=== PATIENT | male | born 1995 | race Caucasian/White ===

== ENCOUNTER 2017-06-03 04:07 | Emergency (ER) | payer SELFPAY ==
[~2017-06-03] VITALS: Ht 193 cm; Wt 70.0 kg
[~2017-06-03 04:07] MED LIST: BENA25TA8 PO; PRED10 PO
[2017-06-03 04:12] VITALS: BP 136/77; PULSE 97; RESP 18; TEMP 97.6; O2SAT 100
[2017-06-03 04:25] VITALS: BP 136/77; PULSE 97; RESP 18; TEMP 97.6; O2SAT 100
[2017-06-03] MEDS ORDERED: ORPHENADRINE INJ 60 MG/2 ML AMP IM ONE (04:30)
[2017-06-03] MEDS ORDERED: DEXAMETHASONE SOD PHOS 4 MG/ML VIAL IV PUSH ONE (04:30)
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
--- NOTE | 2017-06-03 05:11 | RADRPT ---
EXAM DATE/TIME: 06/03/2017 04:40 [facility] COMPARISON: No previous studies available for comparison. INDICATIONS : Lower back, right SI joint pain starting this morning with no known injury. MEDICAL HISTORY : None. SURGICAL HISTORY : None. ENCOUNTER: Initial ACUITY: 1 day PAIN SCORE: 10/10 LOCATION: Right SI joint and lower back FINDINGS: Two view examination was performed. There are five non-rib bearing vertebral bodies. The vertebral bodies are in normal alignment without evidence of subluxation or scoliosis. The disc spaces are jesse ntained. The pedicles are intact. Bony mineralization is normal. No fracture is identified. CONCLUSION: Normal examination for a patient of this age. Jimmie Stevenson MD on June 03, 2017 at 5:10 Board Certified Radiologist. This report was verified electronically.
[2017-06-03 05:42] VITALS: BP 118/62; PULSE 70; RESP 18; O2SAT 100
[2017-06-03] MEDS ORDERED: ROBA750T PO (05:42)
[2017-06-03] MEDS ORDERED: ULTR50TA5 PO (05:42)
[2017-06-03] MEDS ORDERED: IBUP800T23 PO (05:42)
[2017-06-03] MEDS ORDERED: MORPHINE SULFATE 8 MG/ML INJ IV PUSH ONE (05:45)
[2017-06-03 06:28] VITALS: RESP 18
== END 2017-06-03 06:29 | disposition home or self-care (01) ==
LOC: PHED 04:07
DX: M54.31 Sciatica, right side (principal); Z72.0 Tobacco use
CPT/HCPCS: 72100; 96372; 96374; 96375; 99284; J1100; J2270; J2360

== ENCOUNTER 2017-06-04 18:24 | Emergency (ER) | payer SELFPAY ==
[~2017-06-04 18:24] MED LIST changes: +IBUP800T23 PO; +ROBA750T PO; +ULTR50TA5 PO
[2017-06-04 18:35] VITALS: BP 157/79; PULSE 104; RESP 18; TEMP 97.7; O2SAT 100
[2017-06-04] MEDS ORDERED: ORPHENADRINE INJ 60 MG/2 ML AMP IM ONE (19:15)
[2017-06-04] MEDS ORDERED: KETOROLAC TROMETHAMINE 60 MG/2 ML (IM) VIAL IM ONE (19:15)
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
== END 2017-06-04 19:25 | disposition home or self-care (01) ==
LOC: PHEFT 18:24
DX: M54.31 Sciatica, right side (principal)
CPT/HCPCS: 96372; 99284; J1885; J2360

== ENCOUNTER 2017-06-05 20:32 | Inpatient (IN) | payer SELFPAY ==
[~2017-06-05] VITALS: Ht 190.5 cm; Wt 78.1 kg
[~2017-06-05 20:32] MED LIST changes: -BENA25TA8 PO; -PRED10 PO
[2017-06-05 20:45] VITALS: BP 162/84; PULSE 115; RESP 20; TEMP 97.9; O2SAT 100
[2017-06-05] MEDS ORDERED: HYDROmorphone HCL PF 1 MG/ML VIAL IV PUSH ONE ×2 (21:00→22:15)
[2017-06-05] MEDS ORDERED: ONDANSETRON HCL 4 MG/2 ML VIAL IV PUSH ONE (21:00)
[2017-06-05] MEDS: SODIUM CHLOR 0.9% 1000 ML INJ 1,000 ML IV SCH (21:15)
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
[2017-06-05 21:34] LABS: BASOPHIL % 0.2 % (0.0-2.0); EOSINOPHIL % 0.1 % (0.0-4.0); HEMATOCRIT 32.4 % (39.0-51.0); HEMO FLAGS DIFF FINAL; LYMPH % 10.3 % (9.0-44.0); LYMPHOCYTE # 1.2 TH/MM3 (1.0-4.8); MEAN CELL VOLUME 77.8 FL (80.0-100.0); MEAN CORPUSCULAR HGB CONC 32.1 % (32.0-36.0); MONO % 8.7 % (0.0-8.0); NEUT % 80.7 % (16.0-70.0); PLATELET COUNT 208 TH/MM3 (150-450); RED BLOOD COUNT 4.16 MIL/MM3 (4.50-5.90); RED CELL DISTRIBUTION WIDTH 14.6 % (11.6-17.2); WHITE BLOOD COUNT 11.2 TH/MM3 (4.0-11.0)
--- NOTE | 2017-06-05 21:51 | RADRPT ---
EXAM DATE/TIME: 06/05/2017 21:22 [facility] COMPARISON: No previous studies available for comparison. INDICATIONS : Trauma. Severe low back pain with right radiculopathy. MEDICAL HISTORY : None. SURGICAL HISTORY : None. ENCOUNTER: Subsequent ACUITY: 3 day PAIN SCORE: 6/10 LOCATION: [facility] TECHNIQUE: Multiplanar multisequence MRI of the thoracic spine was performed. FINDINGS: VERTEBRA: Normal vertebral body height. Homogeneous marrow signal. ALIGNMENT: Normal. CORD: Normal position and configuration. T1-T2: Normal. T2-T3: The thecal sac has a normal diameter. No evidence of disc bulge or protrusion. T3-T4: The thecal sac has a normal diameter. No evidence of disc bulge or protrusion. T4-T5: The thecal sac has a normal diameter. No evidence of disc bulge or protrusion. T5-T6: The thecal sac has a normal diameter. No evidence of disc bulge or protrusion. T6-T7: The thecal sac has a normal diameter. No evidence of disc bulge or protrusion. T7-T8: The thecal sac has a normal diameter. No evidence of disc bulge or protrusion. T8-T9: The thecal sac has a normal diameter. No evidence of disc bulge or protrusion. T9-T10: The thecal sac has a normal diameter. No evidence of disc bulge or protrusion. T10-T11: A tiny right paracentral protrusion abuts the thecal sac without canal stenosis. T11-T12: A small right paracentral protrusion abuts the ventral thecal sac without canal stenosis. T12-L1: The thecal sac has a normal diameter. No evidence of disc bulge or protrusion. CONCLUSION: 1. Tiny right paracentral protrusion at T10-11 without canal stenosis. 2. Small right paracentral protrusion at T11-12 without canal stenosis. 3. No compression fracture or spondylolisthesis. Justo Mayen MD on June 05, 2017 at 21:48 Board Certified Radiologist. This report was verified electronically.
[2017-06-05 21:54] LABS: ANION GAP 7 MEQ/L (5-15); AST (GOT) 21 U/L (15-37); BICARBONATE 24.3 MEQ/L (21.0-32.0); BLOOD UREA NITROGEN 7 MG/DL (7-18); CHLORIDE 105 MEQ/L (98-107); GLOMERULAR FILTRATION RATE 161 ML/MIN (>89); POTASSIUM 3.4 MEQ/L (3.5-5.1); SODIUM (NA) 136 MEQ/L (136-145)
[2017-06-05 21:58] LABS: ALKALINE PHOSPHATASE 64 U/L (45-117); ALT (GPT) 12 U/L (12-78); TOTAL BILIRUBIN ADULT 0.2 MG/DL (0.2-1.0)
--- NOTE | 2017-06-05 22:02 | RADRPT ---
EXAM DATE/TIME: 06/05/2017 21:22 [facility] COMPARISON: No previous studies available for comparison. INDICATIONS : Trauma. Severe low back pain with right radiculopathy. MEDICAL HISTORY : None. SURGICAL HISTORY : None. ENCOUNTER: Subsequent ACUITY: 3 day PAIN SCORE: 6/10 LOCATION: Paraspinal TECHNIQUE: Multiplanar multisequence MRI of the lumbar spine was performed without contrast. FINDINGS: The most caudal appearing lumbar vertebra is numbered as L5. VERTEBRAE: Homogeneous signal. Normal alignment. CONUS: Normal level and configuration. T12-L1: The thecal sac has a normal diameter. No evidence of disc bulge or protrusion. The neural foramina are patent bilaterally. L1-L2: The thecal sac has a normal diameter. No evidence of disc bulge or protrusion. The neural foramina are patent bilaterally. L2-L3: The thecal sac has a normal diameter. No evidence of disc bulge or protrusion. The neural foramina are patent bilaterally. L3-L4: Minimal broad-based disc bulge abuts the ventral thecal sac without canal stenosis. The neural christine nishant are patent bilaterally. L4-L5: Minimal broad-based disc bulge abuts the ventral thecal sac without canal stenosis. The neural christine nishant are patent bilaterally. L5-S1: Mild broad-based disc protrusion more centered to left abuts the ventral thecal sac and abuts the S1 nerve roots greater on the left. The neural foramina are patent bilaterally. CONCLUSION: 1. Minimal broad-based disc bulges at L3-4 and L4-5 levels without canal stenosis. 2. Mild broad-based protrusion more eccentric to the left at L5-S1 abuts the S1 nerve roots greater o n the left. No canal stenosis. Justo Mayen MD on June 05, 2017 at 21:57 Board Certified Radiologist. This report was verified electronically.
--- NOTE | 2017-06-05 22:24 | RADRPT ---
EXAM DATE/TIME: 06/05/2017 21:22 [facility] COMPARISON: No previous studies available for comparison. INDICATIONS : Trauma. Severe low back pain with right radiculopathy. MEDICAL HISTORY : None. SURGICAL HISTORY : None. ENCOUNTER: Subsequent ACUITY: 3 day PAIN SCORE: 6/10 LOCATION: Paraspinal TECHNIQUE: Multiplanar, multisequence MRI examination of the cervical spine was performed. FINDINGS: VERTEBRAE: Normal vertebral body height. Homogeneous marrow signal. ALIGNMENT: No evidence of subluxation. CORD: Normal configuration and signal. POST FOSSA: The cerebellar tonsils are normal in position. C2-C3: The thecal sac has a normal configuration. There is no evidence of disc herniation or spinal canal s tenosis. The neural foramina are patent bilaterally. C3-C4: The thecal sac has a normal configuration. There is no evidence of disc herniation or spinal canal s tenosis. The neural foramina are patent bilaterally. C4-C5: The thecal sac has a normal configuration. There is no evidence of disc herniation or spinal canal s tenosis. The neural foramina are patent bilaterally. C5-C6: The thecal sac has a normal configuration. There is no evidence of disc herniation or spinal canal s tenosis. The neural foramina are patent bilaterally. C6-C7: The thecal sac has a normal configuration. There is no evidence of disc herniation or spinal canal s tenosis. The neural foramina are patent bilaterally. C7-T1: The thecal sac has a normal configuration. There is no evidence of disc herniation or spinal canal s tenosis. The neural foramina are patent bilaterally. CONCLUSION: Unremarkable cervical spine. Justo Mayen MD on June 05, 2017 at 22:22 Board Certified Radiologist. This report was verified electronically.
[2017-06-05] MEDS ORDERED: LORazepam 2 MG/ML VIAL IV PUSH ONE (22:45)
[2017-06-05 22:53] LABS: BLOOD, URINE NEG (NEG); GLUCOSE,URINE NEG (NEG); KETONE, URINE NEG (NEG); MUCUS URINE FEW /lpf (OCC); NITRITE,URINE NEG (NEG); URINE COLOR YELLOW (YELLW/STRAW)
[2017-06-05 22:55] LABS: COMMENT (UR) CULT NOT INDICATED; CULTURE IF INDICATED CULT NOT INDICATED
[2017-06-05 23:03] VITALS: BP 165/73; PULSE 110; RESP 18; TEMP 100.1; O2SAT 100
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
[2017-06-06] VITALS (7 sets, daily range): BP systolic 131–155; BP diastolic 58–81; PULSE 66–99; RESP 16–18; TEMP 96.6–97.9; O2SAT 96–100
[2017-06-06] MEDS ORDERED: ACETAMINOPHEN 325 MG TAB PO PRN
[2017-06-06] MEDS ORDERED: SODIUM CHLORIDE 0.9% FLUSH 10 ML FLUSH IV FLUSH PRN
[2017-06-06] MEDS ORDERED: SODIUM CHLORIDE 0.9% FLUSH 10 ML FLUSH IVF PRN
[2017-06-06] MEDS ORDERED: BISACODYL 10 MG SUPP RECTAL PRN
[2017-06-06] MEDS: KETOROLAC TROMETHAMINE 60 MG/2 ML (IM) VIAL IM SCH ×5 (00:08→23:15)
--- NOTE | 2017-06-06 01:11 | RADRPT ---
EXAM DATE/TIME: 06/06/2017 00:23 [facility] COMPARISON: No previous studies available for comparison. INDICATIONS : PT FELL THREE DAYS AGO- UNABLE TO AMBULATE, PAIN TO RIGHT UPPER LEG. MEDICAL HISTORY : None. SURGICAL HISTORY : None. ENCOUNTER: Initial ACUITY: 3 days PAIN SCORE: 8/10 LOCATION: Right Femur FINDINGS: Two view examination of the right femur demonstrates no evidence of fracture or dislocation. Bony mi neralization is normal. The soft tissue structures are intact. CONCLUSION: Unremarkable examination of the right femur. Kaleb Heart MD on June 06, 2017 at 1:09 Board Certified Radiologist. This report was verified electronically.
[2017-06-06] MEDS: HYDROmorphone HCL PF 2 MG/ML VIAL IV PUSH PRN ×7 (01:14→21:29)
[2017-06-06] MEDS: METHOCARBAMOL INJ 1,000 MG in SODIUM CHLOR 0.9% 250 ML INJ 240 ML IV SCH ×4 (01:25→23:14)
--- NOTE | 2017-06-06 02:32 | HHI.HP ---
[facility] Service [facility] Primary Care Physician No Primary Care Physician Admission Diagnosis intractable pain; sciatica; sirs Diagnoses: (1) SIRS (systemic inflammatory response syndrome) Diagnosis: Principal (2) Intractable pain Diagnosis: Principal (3) Sciatica of right side Diagnosis: Principal Travel History International Travel<30 Days: No Contact w/Intl Traveler <30 Da: No Traveled to Known Affected Are: No History of Present Illness This is a 21-year-old male with a PMH of Asthma who presented to the ER with complaints of severe right sided back pain in addition to right leg pain which started earlier this evening. Seen in ER on 06/03/17 for similar complaints after developing severe right leg pain after skateboarding, initially denied injury/trauma, however later recalled fall while skateboarding, landed on his right buttock. S/p Decadron, Norflex and Ibuprofen in ER w/ significant improvement and d/c'd home. L-Spine X-ray 06/03/17 w/ no acute findings. Returned to ER again on 06/04/17 for ongoing complaints, s/p Toradol/Norflex and d/c'd home. Returns once again, now w/ severe back/leg pain and difficulty w/ ambulation. Denies incontinence of urine/feces or saddle anesthesia. On arrival, BP 157/79, HR 104, O2 sat 100% on RA, Temp 100 point WBC 11.2. Chemistry essentially unremarkable. Lactic Acid 1.2. UA negative. Dr. Garay consulted by ER physician, recommended MRI, C-Spine MRI unremarkable, T-Spine MRI w/ tiny right paracentral protrusion T10-11 and T11-T12, no canal stenosis. L-Spine MRI w/ minimal broad based disc bulges at L3-4 and L4-5 without canal stenosis. On exam, pt w/ severe right gluteal pain w/ radiculopathy, s/p eval by Dr. Garay in ER, thought to be related to underlying sciatica. No obvious abscess noted. Review of Systems Except as stated in HPI: all other systems reviewed are Neg ROS: 14 point review of systems otherwise negative. Past Family Social History Past Medical History PMH: Asthma Past Surgical History PAST SURGICAL HISTORY: None Allergies: Coded Allergies: No Known Allergies (Unverified , 06/04/17) Family History PAST FAMILY HISTORY: Reviewed. No h/o DM or CAD Social History PAST SOCIAL HISTORY: Negative for alcohol, tobacco or drugs. Physical Exam Vital Signs Vital Signs Date Time Temp Pulse Resp B/P Pulse Ox O2 Delivery O2 Flow Rate FiO2 06/06/17 00:11 100 06/05/17 23:03 100.1 110 18 165/73 100 Room Air 06/05/17 20:45 97.9 115 20 162/84 100 Physical Exam PE: GENERAL: Young white male in obvious distress secondary to pain HEENT: PERRLA, EOMI. No scleral icterus or conjunctival pallor. No lid lag or facial droop. CARDIOVASCULAR: Regular rate and rhythm. No obvious murmurs to auscultation. No chest tenderness to palpation. RESPIRATORY: No obvious rhonchi or wheezing. Clear to auscultation. Breath sounds equal bilaterally. GASTROINTESTINAL: Abdomen soft, non-tender, nondistended. BS normal. MUSCULOSKELETAL: Extremities without clubbing, cyanosis, or edema. No obvious deformities. Significant tenderness to right gluteal region, no abscess or fluctuant mass palpated. NEUROLOGICAL: Awake, alert and oriented x4. No focal neurologic deficits. Moving both upper and lower extremities spontaneously. Laboratory Laboratory Tests Test 06/05/17 06/05/17 21:10 22:18 White Blood Count 11.2 Red Blood Count 4.16 Hemoglobin 10.4 Hematocrit 32.4 Mean Corpuscular Volume 77.8 Mean Corpuscular Hemoglobin 25.0 Mean Corpuscular Hemoglobin 32.1 Concent Red Cell Distribution Width 14.6 Platelet Count 208 Mean Platelet Volume 7.7 Neutrophils (%) (Auto) 80.7 Lymphocytes (%) (Auto) 10.3 Monocytes (%) (Auto) 8.7 Eosinophils (%) (Auto) 0.1 Basophils (%) (Auto) 0.2 Neutrophils # (Auto) 9.0 Lymphocytes # (Auto) 1.2 Monocytes # (Auto) 1.0 Eosinophils # (Auto) 0.0 Basophils # (Auto) 0.0 CBC Comment DIFF FINAL Differential Comment Sodium Level 136 Potassium Level 3.4 Chloride Level 105 Carbon Dioxide Level 24.3 Anion Gap 7 Blood Urea Nitrogen 7 Creatinine 0.62 Estimat Glomerular Filtration 161 Rate Random Glucose 112 Calcium Level 8.6 Total Bilirubin 0.2 Aspartate Amino Transf 21 (AST/SGOT) Alanine Aminotransferase 12 (ALT/SGPT) Alkaline Phosphatase 64 Total Protein 6.9 Albumin 2.9 Urine Color YELLOW Urine Turbidity CLEAR Urine pH 6.0 Urine Specific [place] 1.020 Urine Protein TRACE Urine Glucose (UA) NEG Urine Ketones NEG Urine Occult Blood NEG Urine Nitrite NEG Urine Bilirubin NEG Urine Urobilinogen LESS THAN 2.0 Urine Leukocyte Esterase NEG Urine RBC LESS THAN 1 Urine WBC 4 Urine Mucus FEW Microscopic Urinalysis Comment CULT NOT INDICATED Lactic Acid Level 1.2 Result Diagram: 06/05/17210906/05/172109 Assessment and Plan Problem List: (1) SIRS (systemic inflammatory response syndrome) ICD Code: R65.10 Status: Acute (2) Sciatica of right side ICD Code: M54.31 Status: Acute (3) Intractable pain ICD Code: R52 Status: Acute Assessment and Plan A/P: 1. SIRS: Temp 100.1, HR 110, WBC 11.2, Lactic Acid normal, Source-unclear. Will monitor, IVF for hydration. If leukocytosis/fever persists, plan is for MRI gluteal region to eval for possible underlying abscess. 2. Sciatica: severe right back pain w/ radiculopathy, significant tenderness to palpation right gluteal region, s/p fall while skateboarding, landed on right buttock, no obvious injury noted. S/p eval by Dr. Garay in ER, recommendation for MRI, C-Spine MRI unremarkable, T-Spine MRI w/ tiny right paracentral protrusion T10-11 and T11-T12, no canal stenosis. L-Spine MRI w/ minimal broad based disc bulges at L3-4 and L4-5 without canal stenosis. Will follow. 3. Intractable Pain: Analgesics, antiemetics, muscle relaxants. Will monitor. 4. DVT Prophylaxis: SCD/Teds. 5. Social work for d/c planning as needed. 6. Case discussed w/ ER physician at length. Physician Certification 2 Midnight Certification Type: Admission for Inpatient Services Order for Inpatient Services The services are ordered in accordance with Medicare regulations or non- Medicare payer requirements, as applicable. In the case of services not specified as inpatient-only, they are appropriately provided as inpatient services in accordance with the 2-midnight benchmark. Estimated LOS (days): 2 days is the estimated time the patient will need to remain in the hospital, assuming treatment plan goals are met and no additional complications. Post-Hospital Plan: Not yet determined Estrellita Joyce MD Jun 06, 2017 02:32
[2017-06-06] MEDS ORDERED: Vancomycin Consult Pharmacy 1 EA OTHER SCH (04:45)
[2017-06-06] MEDS: SODIUM CHLOR 0.9% 1000 ML INJ 1,000 ML IV SCH ×3 (04:48→20:14)
[2017-06-06] MEDS: PIPERACIL-TAZO 4.5 GM PREMIX 100 ML IV SCH ×4 (05:02→23:14)
[2017-06-06] MEDS ORDERED: VANCOMYCIN INJ 1,800 MG in SODIUM CHLORID 0.9% 500 ML INJ 500 ML IV SCH (06:00)
[2017-06-06 06:39] LABS: ALT (GPT) 14 U/L (12-78); ANION GAP 8 MEQ/L (5-15); AST (GOT) 20 U/L (15-37); BICARBONATE 26.2 MEQ/L (21.0-32.0); BLOOD UREA NITROGEN 6 MG/DL (7-18); CHLORIDE 105 MEQ/L (98-107); GLOMERULAR FILTRATION RATE 197 ML/MIN (>89); POTASSIUM 3.5 MEQ/L (3.5-5.1); SODIUM (NA) 139 MEQ/L (136-145)
[2017-06-06 06:41] LABS: AUTOMATED NEUTROPHIL # 4.4 TH/MM3 (1.8-7.7); BASOPHIL % 0.6 % (0.0-2.0); EOSINOPHIL # 0.1 TH/MM3 (0-0.4); EOSINOPHIL % 0.8 % (0.0-4.0); HEMATOCRIT 32.1 % (39.0-51.0); HEMO FLAGS DIFF FINAL; LYMPH % 25.2 % (9.0-44.0); LYMPHOCYTE # 1.8 TH/MM3 (1.0-4.8); MEAN CELL VOLUME 76.9 FL (80.0-100.0); MEAN CORPUSCULAR HEMOGLOBIN 25.8 PG (27.0-34.0); MEAN CORPUSCULAR HGB CONC 33.5 % (32.0-36.0); MONO % 11.8 % (0.0-8.0); NEUT % 61.6 % (16.0-70.0); PLATELET COUNT 201 TH/MM3 (150-450); RED BLOOD COUNT 4.17 MIL/MM3 (4.50-5.90); RED CELL DISTRIBUTION WIDTH 14.8 % (11.6-17.2); WHITE BLOOD COUNT 7.2 TH/MM3 (4.0-11.0)
[2017-06-06 06:42] LABS: ALKALINE PHOSPHATASE 59 U/L (45-117); TOTAL BILIRUBIN ADULT 0.3 MG/DL (0.2-1.0)
[2017-06-06] MEDS: DOCUSATE SODIUM 50 MG/SENNA 8.6 MG TAB PO SCH ×2 (08:52→19:47)
[2017-06-06] MEDS: SODIUM CHLORIDE 0.9% FLUSH 10 ML FLUSH IV FLUSH SCH ×4 (08:53→19:47)
--- NOTE | 2017-06-06 11:23 | HHI.PR ---
Subjective Remarks No acute events overnight. Afebrile, vital signs stable. Patient moaning in pain. States his right gluteal region is exquisitely painful and the pain radiates and twitches down his right lower extremity. He is unable to move his right leg at the hip. States the pain medication helps somewhat however his leg hurts continuously. Objective Vitals Vital Signs Date Time Temp Pulse Resp B/P Pulse Ox O2 Delivery O2 Flow Rate FiO2 06/06/17 10:29 81 06/06/17 08:00 97.7 66 16 131/63 98 06/06/17 04:17 97.9 89 16 133/63 97 06/06/17 00:11 100 06/05/17 23:03 100.1 110 18 165/73 100 Room Air 06/05/17 20:45 97.9 115 20 162/84 100 Result Diagram: 06/06/17 0532 06/06/17 0532 Objective Remarks GENERAL: Young white male in obvious distress secondary to pain HEENT: PERRLA, EOMI. No scleral icterus or conjunctival pallor. No lid lag or facial droop. CARDIOVASCULAR: Regular rate and rhythm. No obvious murmurs to auscultation. No chest tenderness to palpation. RESPIRATORY: No obvious rhonchi or wheezing. Clear to auscultation. Breath sounds equal bilaterally. GASTROINTESTINAL: Abdomen soft, non-tender, nondistended. BS normal. MUSCULOSKELETAL: Extremities without clubbing, cyanosis, or edema. No obvious deformities. Significant tenderness to right gluteal region, no abscess or fluctuant mass palpated. No erythema visualized. NEUROLOGICAL: Awake, alert and oriented x4. No focal neurologic deficits. Moving both upper and lower extremities spontaneously. A/P Problem List: (1) SIRS (systemic inflammatory response syndrome) ICD Code: R65.10 Status: Acute (2) Sciatica of right side ICD Code: M54.31 Status: Acute (3) Intractable pain ICD Code: R52 Status: Acute Assessment and Plan 1. SIRS: On admission, Temp 100.1, HR 110, WBC 11.2, Lactic Acid normal, Source-unclear. Afebrile with resolution of leukocytosis since starting Vanc/ Zosyn. Patient with uncontrolled pain in the right gluteal region, status post trauma to the area 4 days ago skateboarding. No surrounding erythema or obvious fluctuance however patient is unable to move his leg. Will obtain MRI of hip/gluteal region looking for soft tissue infection/hematoma that may be the cause of the patient's pain. Continue IV fluid hydration and antibiotics at this time. 2. Sciatica: severe right back pain w/ radiculopathy, significant tenderness to palpation right gluteal region, s/p fall while skateboarding, landed on right buttock, no obvious injury noted. S/p eval by Dr. Garay in ER, recommendation for MRI, C-Spine MRI unremarkable, T-Spine MRI w/ tiny right paracentral protrusion T10-11 and T11-T12, no canal stenosis. L-Spine MRI w/ minimal broad based disc bulges at L3-4 and L4-5 without canal stenosis. 3. Intractable Pain: Analgesics, antiemetics, muscle relaxants. 4. DVT Prophylaxis: SCD/Teds. 5. Social work for d/c planning as needed. Nhi Shirley MD R3 Jun 06, 2017 11:23
[2017-06-06] MEDS: DEXAMETHASONE 4 MG TAB PO SCH ×2 (13:35→19:47)
--- NOTE | 2017-06-06 14:52 | HHI.NSPN ---
(Aleksandar Ricketts) History Chief Complaint: Back pain and right lower extremity pain and weakness (Aleksandar Ricketts) Interval History 06/05: 21-year-old male who states that 3 days ago he fell and landed on his buttock while skateboarding. Initially he had some pain in the right leg which was not severe but has become much worse over the past 3 days. He presents to the emergency room this evening the third time in 3 days with complaint of persistent severe pain in the right gluteal region radiating primarily to the posterior right lower extremity done of the foot. He has had some swelling in the right foot. No definite fevers or chills. No left lower extremity symptoms. No pain weakness or numbness in the upper extremities. No complaint of bowel or bladder dysfunction. He has occasional spasms in the right leg 06/06: The patient is seen with Dr Garay this afternoon. He continues to have pain to the right buttock that radiates down the right lower extremity. He continues to still have some spasms down the extremity. He reports that the left foot swelling and numbness are better today. (Aleksandar Ricketts) System Review Comments Constitutional: Patient denies any fever or chills. HEENT: Patient denies any visual or hearing difficulty. Respiratory: Patient denies any shortness of breath or productive cough. Cardiovascular: Patient denies any chest pain, palpitations or irregular heartbeat. Gastrointestinal: Patient denies any abdominal pain, nausea, vomiting or incontinence of stool. Genitourinary: Patient denies any incontinence of urine. Musculoskeletal: Patient complains of pain to the back and right buttock going down the right lower extremity and still has weakness to the extremity. He states it is even painful on the right when he moves the left lower extremity. Neurologic: Patient has some numbness/altered sensation to the right lower extremity and the left foot numbness is better. He denies any headache, dizziness or tingling. (Aleksandar Ricketts) Exam Results Vital Signs Date Time Temp Pulse Resp B/P Pulse Ox O2 Delivery O2 Flow Rate FiO2 7/23/17 10:29 81 06/06/17 08:00 97.7 16 131/63 98 06/05/17 23:03 Room Air (Aleksandar Ricketts) Physical Examination GENERAL: Patient awake & alert, appears fairly comfortable, no apparent distress , affect normal. SKIN: Warm, dry & intact, no evident rashes, ulcerations or other lesions. HEENT: Normocephalic, atraumatic. NECK: No JVD, trachea midline. RESPIRATORY: CTAB w/o W/R/R,equal excursion, nonlaboured, on RA. CARDIOVASCULAR: S1S2 w/RRR w/o M/G/R, radial & pedal pulses 2+, cap refill < 2 sec, no pedal edema. GASTROINTESTINAL: Abdomen soft, nontender, positive bowel sounds. MUSCULOSKELETAL: LLE NTTP, right lateral thigh & sciatic notch TTP. NEUROLOGICAL: AAOx3 Speech clear & appropriate Follows simple commands w/o difficulty Sensation intact to light touch to the lower extremities Motor strength decreased RLE 2/5 but patient making poor effort due to pain, LLE plantar extension 5/5 plantar flexion 4 to 4.5/5 hip flexion 3/5 with poor effort due to pain to the back and right side (Aleksandar Ricketts) Lab, Micro, Other Results Allergies Coded Allergies Type Severity Reaction Last Updated Verified No Known Allergies 06/04/17 No Recent Impressions Thoracic Spine MRI 06/05/17 0000 Signed Impressions: Service Date/Time: Monday, June 05, 2017 21:22 - CONCLUSION: 1. Tiny right paracentral protrusion at T10-11 without canal stenosis. 2. Small right paracentral protrusion at T11-12 without canal stenosis. 3. No compression fracture or spondylolisthesis. Justo Mayen MD Lumbar Spine MRI 06/05/17 0000 Signed Impressions: Service Date/Time: Monday, June 05, 2017 21:22 - CONCLUSION: 1. Minimal broad-based disc bulges at L3-4 and L4-5 levels without canal stenosis. 2. Mild broad-based protrusion more eccentric to the left at L5-S1 abuts the S1 nerve roots greater on the left. No canal stenosis. Justo Mayen MD Femur X-Ray 06/05/17 0000 Signed Impressions: Service Date/Time: Tuesday, June 06, 2017 00:23 - CONCLUSION: Unremarkable examination of the right femur. Kaleb Heart MD Cervical Spine MRI 06/05/17 0000 Signed Impressions: Service Date/Time: Monday, June 05, 2017 21:22 - CONCLUSION: Unremarkable cervical spine. Justo Mayen MD /// 06:00 18:00 06:00 18:00 06:00 18:00 Intake Total 1042 ml Balance 1042 ml Intake IV Total 1042 ml Laboratory Tests Test 06/05/17 06/05/17 06/06/17 21:10 22:18 05:32 White Blood Count 11.2 TH/MM3 7.2 TH/MM3 Red Blood Count 4.16 MIL/MM3 4.17 MIL/MM3 Hemoglobin 10.4 GM/DL 10.7 GM/DL Hematocrit 32.4 % 32.1 % Mean Corpuscular Volume 77.8 FL 76.9 FL Mean Corpuscular Hemoglobin 25.0 PG 25.8 PG Mean Corpuscular Hemoglobin 32.1 % 33.5 % Concent Red Cell Distribution Width 14.6 % 14.8 % Platelet Count 208 TH/MM3 201 TH/MM3 Mean Platelet Volume 7.7 FL 7.7 FL Neutrophils (%) (Auto) 80.7 % 61.6 % Lymphocytes (%) (Auto) 10.3 % 25.2 % Monocytes (%) (Auto) 8.7 % 11.8 % Eosinophils (%) (Auto) 0.1 % 0.8 % Basophils (%) (Auto) 0.2 % 0.6 % Neutrophils # (Auto) 9.0 TH/MM3 4.4 TH/MM3 Lymphocytes # (Auto) 1.2 TH/MM3 1.8 TH/MM3 Monocytes # (Auto) 1.0 TH/MM3 0.9 TH/MM3 Eosinophils # (Auto) 0.0 TH/MM3 0.1 TH/MM3 Basophils # (Auto) 0.0 TH/MM3 0.0 TH/MM3 CBC Comment DIFF FINAL DIFF FINAL Differential Comment Sodium Level 136 MEQ/L 139 MEQ/L Potassium Level 3.4 MEQ/L 3.5 MEQ/L Chloride Level 105 MEQ/L 105 MEQ/L Carbon Dioxide Level 24.3 MEQ/L 26.2 MEQ/L Anion Gap 7 MEQ/L 8 MEQ/L Blood Urea Nitrogen 7 MG/DL 6 MG/DL Creatinine 0.62 MG/DL 0.52 MG/DL Estimat Glomerular Filtration 161 ML/MIN 197 ML/MIN Rate Random Glucose 112 MG/DL 89 MG/DL Calcium Level 8.6 MG/DL 8.5 MG/DL Total Bilirubin 0.2 MG/DL 0.3 MG/DL Aspartate Amino Transf 21 U/L 20 U/L (AST/SGOT) Alanine Aminotransferase 12 U/L 14 U/L (ALT/SGPT) Alkaline Phosphatase 64 U/L 59 U/L Total Protein 6.9 GM/DL 6.3 GM/DL Albumin 2.9 GM/DL 2.6 GM/DL Urine Color YELLOW Urine Turbidity CLEAR Urine pH 6.0 Urine Specific [place] 1.020 Urine Protein TRACE mg/dL Urine Glucose (UA) NEG mg/dL Urine Ketones NEG mg/dL Urine Occult Blood NEG Urine Nitrite NEG Urine Bilirubin NEG Urine Urobilinogen LESS THAN 2.0 MG/DL Urine Leukocyte Esterase NEG Urine RBC LESS THAN 1 /hpf Urine WBC 4 /hpf Urine Mucus FEW /lpf Microscopic Urinalysis Comment CULT NOT INDICATED Lactic Acid Level 1.2 mmol/L Vital Signs Date Time Temp Pulse Resp B/P Pulse Ox O2 Delivery O2 Flow Rate FiO2 06/06/17 10:29 81 06/06/17 08:00 97.7 66 16 131/63 98 06/06/17 04:17 97.9 89 16 133/63 97 06/06/17 00:11 100 06/05/17 23:03 100.1 110 18 165/73 100 Room Air 06/05/17 20:45 97.9 115 20 162/84 100 (Aleksandar Ricketts) Medical Decision Making Impression and Plan Impression: Severe right gluteal pain radiating to the posterior right lower extremity. This is following fall onto the gluteal region 3 days ago. Likely has a component of gluteal myofascial pain, possible piriformis pain and spasm was secondary sciatic neuropathy. Direct sciatic nerve contusion remains a possibility. Today the patient remains essentially stable although w/decreased motor function due to poor effort r/t pain. Plan: Plan of care was discussed with the patient. Continue conservative management Continue PT Decadron 4 mg PO q12h Pantoprazole 40 mg PO QD No indication for NSGY intervention at this time Will continue to follow (Aleksandar Ricketts) Attending Statement I have personally seen and examined the patient on the date of this note. Pertinent documentation and study results have been reviewed by the undersigned. I have personally developed the treatment plan and performed medical decision making. Agree with findings, exam, and treatment plan as noted above. On examination today, the patient remains with significant gluteal pain. Specifically significant tenderness over the right sciatic notch. He may have a focal right sciatic neuropathy due to direct trauma. No definite piriformis syndrome. It seems doubtful that the relatively mild L4 5 lateral recess stenosis with what appears to be a more chronic central disc displacement is to cause of his severe acute pain. Continuing therapy Medications adjusted Add Toradol with Protonix Continuing Toradol and muscle relaxant (Zacarias Garay MD) Aleksandar Ricketts Jun 06, 2017 14:52 Zacarias Garay MD Jun 06, 2017 15:35
[2017-06-06] MEDS: ONDANSETRON HCL 4 MG/2 ML VIAL IVP PRN ×2 (15:18→21:32)
[2017-06-06] MEDS: VANCOMYCIN INJ 1,250 MG in SODIUM CHLOR 0.9% 250 ML INJ 250 ML IV SCH (19:47)
[2017-06-06] MEDS: ACETAMINOPHEN/HYDROcodone 325 MG/10 MG TAB PO PRN (23:19)
[2017-06-07] VITALS (9 sets, daily range): BP systolic 119–164; BP diastolic 60–76; PULSE 45–72; RESP 16–18; TEMP 95.8–98; O2SAT 92–99
[2017-06-07] MEDS: HYDROmorphone HCL PF 2 MG/ML VIAL IV PUSH PRN ×7 (00:50→23:03)
[2017-06-07] MEDS: VANCOMYCIN INJ 1,250 MG in SODIUM CHLOR 0.9% 250 ML INJ 250 ML IV SCH ×3 (03:51→21:38)
[2017-06-07] MEDS: SODIUM CHLOR 0.9% 1000 ML INJ 1,000 ML IV SCH ×3 (05:08→21:39)
[2017-06-07] MEDS: PIPERACIL-TAZO 4.5 GM PREMIX 100 ML IV SCH ×4 (05:09→23:04)
[2017-06-07] MEDS: KETOROLAC TROMETHAMINE 60 MG/2 ML (IM) VIAL IM SCH ×4 (05:10→17:44)
[2017-06-07] MEDS: ONDANSETRON HCL 4 MG/2 ML VIAL IVP PRN ×2 (05:10→13:24)
[2017-06-07] MEDS: ACETAMINOPHEN/HYDROcodone 325 MG/10 MG TAB PO PRN ×5 (05:11→21:41)
[2017-06-07 07:19] LABS: AUTOMATED NEUTROPHIL # 7.1 TH/MM3 (1.8-7.7); HEMATOCRIT 34.2 % (39.0-51.0); HEMO FLAGS DIFF FINAL; LYMPH % 10.6 % (9.0-44.0); LYMPHOCYTE # 0.9 TH/MM3 (1.0-4.8); MEAN CORPUSCULAR HEMOGLOBIN 25.7 PG (27.0-34.0); MONO % 4.7 % (0.0-8.0); NEUT % 84.7 % (16.0-70.0); PLATELET COUNT 246 TH/MM3 (150-450); RED BLOOD COUNT 4.38 MIL/MM3 (4.50-5.90); RED CELL DISTRIBUTION WIDTH 14.5 % (11.6-17.2); WHITE BLOOD COUNT 8.4 TH/MM3 (4.0-11.0)
[2017-06-07 07:35] LABS: BICARBONATE 26.6 MEQ/L (21.0-32.0); POTASSIUM 4.2 MEQ/L (3.5-5.1)
[2017-06-07] MEDS: MAGNESIUM HYDROXIDE SUSP 30 ML CUP PO PRN (08:33)
[2017-06-07] MEDS: LACTULOSE SYRUP 20 GM/30 ML CUP PO PRN (08:33)
[2017-06-07] MEDS: METHOCARBAMOL INJ 1,000 MG in SODIUM CHLOR 0.9% 250 ML INJ 240 ML IV SCH ×3 (08:36→23:04)
[2017-06-07] MEDS: DEXAMETHASONE 4 MG TAB PO SCH ×2 (08:36→21:39)
[2017-06-07] MEDS: PANTOPRAZOLE SOD 40 MG DELAYED RELEASE TAB PO SCH (08:36)
[2017-06-07] MEDS: SODIUM CHLORIDE 0.9% FLUSH 10 ML FLUSH IV FLUSH SCH ×4 (08:37→21:36)
[2017-06-07] MEDS: DOCUSATE SODIUM 50 MG/SENNA 8.6 MG TAB PO SCH ×2 (08:39→21:40)
[2017-06-07] MEDS: SENNOSIDES 8.6 MG TAB PO PRN (08:39)
[2017-06-07] MEDS ORDERED: PHARMACY ORDERED LAB ONE (09:45)
[2017-06-07] MEDS ORDERED: IOHEXOL 350 MG/ML 10 ML VIAL (for RAD DIAG) IV ONE (11:32)
--- NOTE | 2017-06-07 11:42 | RADRPT ---
EXAM DATE/TIME: 06/07/2017 10:53 [facility] COMPARISON: No previous studies available for comparison. INDICATIONS : Right buttock and flank pain, fall 3 days ago. IV CONTRAST: 100 cc Omnipaque 350 (iohexol) IV ORAL CONTRAST: No oral contrast ingested. RADIATION DOSE: 9.96 CTDIvol (mGy) MEDICAL HISTORY : Asthma. SURGICAL HISTORY : Abdominal surgery, unspecified. ENCOUNTER: Initial ACUITY: 3 days PAIN SCALE: 10/10 LOCATION: Right buttock TECHNIQUE: Volumetric scanning of the abdomen and pelvis was performed. Using automated exposure control and ad justment of the mA and/or kV according to patient size, radiation dose was kept as low as reasonably achievable to obtain optimal diagnostic quality images. DICOM format image data is available electro nically for review and comparison. FINDINGS: LOWER LUNGS: Bibasilar areas of consolidation. LIVER: Homogeneous density without lesion. There is no dilation of the biliary tree. No calcified gallston es. SPLEEN: Normal size without lesion. PANCREAS: Within normal limits. KIDNEYS: Normal in size and shape. There is no mass, stone or hydronephrosis. ADRENAL GLANDS: Within normal limits. VASCULAR: There is no aortic aneurysm. BOWEL/MESENTERY: The stomach, small bowel, and colon demonstrate no acute abnormality. There is no free intraperitone al air or fluid. ABDOMINAL WALL: Within normal limits. RETROPERITONEUM: There is no lymphadenopathy. BLADDER: No wall thickening or mass. REPRODUCTIVE: Within normal limits. INGUINAL: There is no lymphadenopathy or hernia. MUSCULOSKELETAL: Within normal limits for patient age. CONCLUSION: 1. No acute abnormality. 2. Bibasilar atelectasis. Stephen Best Jr., MD on June 07, 2017 at 11:38 Board Certified Radiologist. This report was verified electronically.
[2017-06-07] MEDS ORDERED: VANCOMYCIN INJ 1,250 MG in SODIUM CHLOR 0.9% 250 ML INJ 250 ML IV SCH (12:00)
[2017-06-07] MEDS ORDERED: GADODIAMIDE PF 287 MG/ML 20 ML VIAL (for RAD MRI) IV ONE (13:12)
--- NOTE | 2017-06-07 14:05 | HHI.PR ---
Subjective Remarks Follow-up right lower extremity sciatica 06/07/17-patient seen and examined, complains of right lower extremity pain Objective Vitals Vital Signs Date Time Temp Pulse Resp B/P Pulse Ox O2 Delivery O2 Flow Rate FiO2 06/07/17 13:30 96.7 64 16 144/74 98 06/07/17 08:42 45 06/07/17 08:00 96.2 56 17 127/69 97 06/07/17 04:30 96.6 55 16 130/68 97 06/07/17 00:30 96.7 63 16 125/68 98 06/06/17 22:40 96.9 67 17 155/74 96 06/06/17 16:00 97.0 82 18 131/58 97 I/O 06/06/17 06/06/17 06/06/17 06/07/17 06/07/17 06/07/17 07:00 15:00 23:00 07:00 15:00 23:00 Intake Total 1702 ml 240 ml 2994 ml Output Total 1000 ml 1000 ml Balance 1702 ml -760 ml 1994 ml Intake Oral 660 ml 240 ml 600 ml IV Total 1042 ml 2394 ml Output Urine Total 1000 ml 1000 ml # Voids 4 # Bowel Movements 0 0 0 Result Diagram: 06/07/17 0545 06/07/17 0545 Imaging Last Impressions Thoracic Spine MRI 06/05/17 0000 Signed Impressions: Service Date/Time: Monday, June 05, 2017 21:22 - CONCLUSION: 1. Tiny right paracentral protrusion at T10-11 without canal stenosis. 2. Small right paracentral protrusion at T11-12 without canal stenosis. 3. No compression fracture or spondylolisthesis. Justo Mayen MD Lumbar Spine MRI 06/05/17 0000 Signed Impressions: Service Date/Time: Monday, June 05, 2017 21:22 - CONCLUSION: 1. Minimal broad-based disc bulges at L3-4 and L4-5 levels without canal stenosis. 2. Mild broad-based protrusion more eccentric to the left at L5-S1 abuts the S1 nerve roots greater on the left. No canal stenosis. Justo Mayen MD Femur X-Ray 06/05/17 0000 Signed Impressions: Service Date/Time: Tuesday, June 06, 2017 00:23 - CONCLUSION: Unremarkable examination of the right femur. Kaleb Heart MD Cervical Spine MRI 06/05/17 0000 Signed Impressions: Service Date/Time: Monday, June 05, 2017 21:22 - CONCLUSION: Unremarkable cervical spine. Justo Mayen MD Abdomen/Pelvis CT 06/05/17 0000 Signed Impressions: Service Date/Time: Wednesday, June 07, 2017 10:53 - CONCLUSION: 1. No acute abnormality. 2. Bibasilar atelectasis. Stephen Best Jr., MD Objective Remarks GENERAL: NAD SKIN: Warm and dry. HEAD: Normocephalic. EYES: No scleral icterus. No injection or drainage. NECK: Supple, trachea midline. No JVD or lymphadenopathy. CARDIOVASCULAR: Regular rate and rhythm without murmurs, gallops, or rubs. RESPIRATORY: Breath sounds equal bilaterally. No accessory muscle use. GASTROINTESTINAL: Abdomen soft, non-tender, nondistended. MUSCULOSKELETAL: No cyanosis, or edema. RLE limited ROM BACK: Nontender without obvious deformity. No CVA tenderness. A/P Problem List: (1) SIRS (systemic inflammatory response syndrome) ICD Code: R65.10 Status: Acute (2) Sciatica of right side ICD Code: M54.31 Status: Acute (3) Intractable pain ICD Code: R52 Status: Acute Assessment and Plan 21-year-old man with 1. SIRS: Continue IV fluid hydration and antibiotics at this time. Currently on Zosyn and vancomycin pending hip MRI. We will de-escalate antibiotics 2. Sciatica: S/p eval by Dr. Garay in ER, recommendation for MRI, C-Spine MRI unremarkable, T-Spine MRI w/ tiny right paracentral protrusion T10-11 and T11- T12, no canal stenosis. L-Spine MRI w/ minimal broad based disc bulges at L3-4 and L4-5 without canal stenosis. Continue with Decadron 4 mg every 12H and PPI daily as well as Robaxin. PT to treat and eval. Hip MRI pending 3. Intractable Pain: Analgesics, antiemetics, muscle relaxants. Justo Aguirre MD Jun 07, 2017 14:05
--- NOTE | 2017-06-07 14:51 | HHI.NSPN ---
(Aleksandar Ricketts) History Chief Complaint: Right buttock pain (Aleksandar Ricketts) Interval History 06/05: 21-year-old male who states that 3 days ago he fell and landed on his buttock while skateboarding. Initially he had some pain in the right leg which was not severe but has become much worse over the past 3 days. He presents to the emergency room this evening the third time in 3 days with complaint of persistent severe pain in the right gluteal region radiating primarily to the posterior right lower extremity done of the foot. He has had some swelling in the right foot. No definite fevers or chills. No left lower extremity symptoms. No pain weakness or numbness in the upper extremities. No complaint of bowel or bladder dysfunction. He has occasional spasms in the right leg 06/06: The patient is seen with Dr Garay this afternoon. He continues to have pain to the right buttock that radiates down the right lower extremity. He continues to still have some spasms down the extremity. He reports that the left foot swelling and numbness are better today. 06/07: The patient is with moderately severe distress secondary to right buttock pain after standing with Physical Therapy. He also reports having "liver" pain this morning. The patient had a CT abdomen & pelvis done this morning which was unremarkable except for bibasilar atelectasis. An MRI of the right hip was completed but the report is still pending. (Aleksandar Ricketts) System Review Comments Constitutional: Patient denies any fever or chills. HEENT: Patient denies any visual or hearing difficulty. Respiratory: Patient denies any shortness of breath or productive cough. Cardiovascular: Patient denies any chest pain, palpitations or irregular heartbeat. Gastrointestinal: Patient states that he had "liver" pain this morning, then said that it might have been stomach pain. He denies any nausea, vomiting or incontinence of stool. Genitourinary: Patient denies any incontinence of urine. Musculoskeletal: Patient complains of pain to the right buttock after Physical Therapy had him standing and he still has weakness to the extremity. Neurologic: Patient denies any headache, dizziness numbness, or tingling. ( Aleksandar Ricketts) Exam Results Vital Signs Date Time Temp Pulse Resp B/P Pulse Ox O2 Delivery O2 Flow Rate FiO2 06/07/17 13:30 96.7 64 16 144/74 98 06/05/17 23:03 Room Air Intake and Output 06/06/17 06/06/17 06/07/17 08:00 16:00 00:00 Intake Total 1702 ml 240 ml Output Total 1000 ml Balance 1702 ml -760 ml (Aleksandar Ricketts) Physical Examination GENERAL: Patient awake & alert but appears quite uncomfortable and in moderately severe distress secondary to pain. His affect as such is normal. SKIN: Warm, dry & intact, no evident rashes, ulcerations or other lesions. HEENT: Normocephalic, atraumatic. NECK: No JVD, trachea midline. RESPIRATORY: CTAB w/o W/R/R,equal excursion, nonlaboured, on RA. CARDIOVASCULAR: S1S2 w/fast but regular rate w/o M/G/R, radial & pedal pulses 2+ , cap refill < 2 sec, no pedal edema. GASTROINTESTINAL: Abdomen soft, TTP to epigastric region, positive bowel sounds. MUSCULOSKELETAL: LLE NTTP, right lateral thigh & sciatic notch TTP. NEUROLOGICAL: AAOx3 Speech clear & appropriate Follows simple commands w/o difficulty Sensation intact to light touch to the lower extremities Assessment limited due to pain but motor strength RLE 3+/5 hip flexion and plantar flexion & extension, LLE 4 to 5/5 to all flexion & extension muscle groups, limitations on left secondary to pain and also possibly to right as well. (Aleksandar Ricketts) Lab, Micro, Other Results Allergies Coded Allergies Type Severity Reaction Last Updated Verified No Known Allergies 06/04/17 No Recent Impressions Thoracic Spine MRI 06/05/17 0000 Signed Impressions: Service Date/Time: Wednesday, June 05, 2017 21:22 - CONCLUSION: 1. Tiny right paracentral protrusion at T10-11 without canal stenosis. 2. Small right paracentral protrusion at T11-12 without canal stenosis. 3. No compression fracture or spondylolisthesis. Justo Mayen MD Lumbar Spine MRI 06/05/17 Signed Impressions: Service Date/Time: Monday, June 05, 2017 21:22 - CONCLUSION: 1. Minimal broad-based disc bulges at L3-4 and L4-5 levels without canal stenosis. 2. Mild broad-based protrusion more eccentric to the left at L5-S1 abuts the S1 nerve roots greater on the left. No canal stenosis. Justo Mayen MD Femur X-Ray 06/05/17 Signed Impressions: Service Date/Time: Tuesday, June 06, 2017 00:23 - CONCLUSION: Unremarkable examination of the right femur. Kaleb Heart MD Cervical Spine MRI 06/05/17 Signed Impressions: Service Date/Time: Monday, June 05, 2017 21:22 - CONCLUSION: Unremarkable cervical spine. Justo Mayen MD Abdomen/Pelvis CT 06/05/17 Signed Impressions: Service Date/Time: Wednesday, June 07, 2017 10:53 - CONCLUSION: 1. No acute abnormality. 2. Bibasilar atelectasis. Stephen Best Jr., MD //// 06:00 18:00 06:00 18:00 06:00 18:00 Intake Total 1702 ml 240 ml 2994 ml Output Total 1000 ml 1000 ml Balance 1702 ml -760 ml 1994 ml Intake Oral 660 ml 240 ml 600 ml IV Total 1042 ml 2394 ml Output Urine Total 1000 ml 1000 ml # Voids 4 # Bowel Movements 0 0 0 Laboratory Tests Test 06/05/17 06/05/17 06/06/17 06/07/17 21:10 22:18 05:32 05:45 White Blood Count 11.2 TH/MM3 7.2 TH/MM3 8.4 TH/MM3 Red Blood Count 4.16 MIL/MM3 4.17 MIL/MM3 4.38 MIL/MM3 Hemoglobin 10.4 GM/DL 10.7 GM/DL 11.3 GM/DL Hematocrit 32.4 % 32.1 % 34.2 % Mean Corpuscular Volume 77.8 FL 76.9 FL 78.0 FL Mean Corpuscular Hemoglobin 25.0 PG 25.8 PG 25.7 PG Mean Corpuscular Hemoglobin 32.1 % 33.5 % 33.0 % Concent Red Cell Distribution Width 14.6 % 14.8 % 14.5 % Platelet Count 208 TH/MM3 201 TH/MM3 246 TH/MM3 Mean Platelet Volume 7.7 FL 7.7 FL 7.7 FL Neutrophils (%) (Auto) 80.7 % 61.6 % 84.7 % Lymphocytes (%) (Auto) 10.3 % 25.2 % 10.6 % Monocytes (%) (Auto) 8.7 % 11.8 % 4.7 % Eosinophils (%) (Auto) 0.1 % 0.8 % 0.0 % Basophils (%) (Auto) 0.2 % 0.6 % 0.0 % Neutrophils # (Auto) 9.0 TH/MM3 4.4 TH/MM3 7.1 TH/MM3 Lymphocytes # (Auto) 1.2 TH/MM3 1.8 TH/MM3 0.9 TH/MM3 Monocytes # (Auto) 1.0 TH/MM3 0.9 TH/MM3 0.4 TH/MM3 Eosinophils # (Auto) 0.0 TH/MM3 0.1 TH/MM3 0.0 TH/MM3 Basophils # (Auto) 0.0 TH/MM3 0.0 TH/MM3 0.0 TH/MM3 CBC Comment DIFF FINAL DIFF FINAL DIFF FINAL Differential Comment Sodium Level 136 MEQ/L 139 MEQ/L 138 MEQ/L Potassium Level 3.4 MEQ/L 3.5 MEQ/L 4.2 MEQ/L Chloride Level 105 MEQ/L 105 MEQ/L 105 MEQ/L Carbon Dioxide Level 24.3 MEQ/L 26.2 MEQ/L 26.6 MEQ/L Anion Gap 7 MEQ/L 8 MEQ/L 6 MEQ/L Blood Urea Nitrogen 7 MG/DL 6 MG/DL 9 MG/DL Creatinine 0.62 MG/DL 0.52 MG/DL 0.57 MG/DL Estimat Glomerular Filtration 161 ML/MIN 197 ML/MIN 177 ML/MIN Rate Random Glucose 112 MG/DL 89 MG/DL 138 MG/DL Calcium Level 8.6 MG/DL 8.5 MG/DL 9.2 MG/DL Total Bilirubin 0.2 MG/DL 0.3 MG/DL Aspartate Amino Transf 21 U/L 20 U/L (AST/SGOT) Alanine Aminotransferase 12 U/L 14 U/L (ALT/SGPT) Alkaline Phosphatase 64 U/L 59 U/L Total Protein 6.9 GM/DL 6.3 GM/DL Albumin 2.9 GM/DL 2.6 GM/DL Urine Color YELLOW Urine Turbidity CLEAR Urine pH 6.0 Urine Specific [place] 1.020 Urine Protein TRACE mg/dL Urine Glucose (UA) NEG mg/dL Urine Ketones NEG mg/dL Urine Occult Blood NEG Urine Nitrite NEG Urine Bilirubin NEG Urine Urobilinogen LESS THAN 2.0 MG/DL Urine Leukocyte Esterase NEG Urine RBC LESS THAN 1 /hpf Urine WBC 4 /hpf Urine Mucus FEW /lpf Microscopic Urinalysis Comment CULT NOT INDICATED Lactic Acid Level 1.2 mmol/L Vital Signs Date Time Temp Pulse Resp B/P Pulse Ox O2 Delivery O2 Flow Rate FiO2 06/07/17 13:30 96.7 64 16 144/74 98 06/07/17 08:42 45 06/07/17 08:00 96.2 56 17 127/69 97 06/07/17 04:30 96.6 55 16 130/68 97 06/07/17 00:30 96.7 63 16 125/68 98 06/06/17 22:40 96.9 67 17 155/74 96 06/06/17 16:00 97.0 82 18 131/58 97 06/06/17 12:00 96.6 99 18 143/81 99 06/06/17 10:29 81 06/06/17 08:00 97.7 66 16 131/63 98 06/06/17 04:17 97.9 89 16 133/63 97 06/06/17 00:11 100 06/05/17 23:03 100.1 110 18 165/73 100 Room Air 06/05/17 20:45 97.9 115 20 162/84 100 (Aleksandar Ricketts) Medical Decision Making Impression and Plan Impression: Severe right gluteal pain radiating to the posterior right lower extremity s/p fall 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 No definite piriformis syndrome. It seems doubtful that the relatively mild L4 5 lateral recess stenosis with what appears to be a more chronic central disc displacement is to cause of his severe acute pain. CT abdomen & pelvis unremarkable except for bibasilar atelectasis. MRI hip completed but the report is still pending. Patient with uncontrolled pain following physical therapy, his motor function seems slightly improved but was unable to be fully assessed due to his pain. Plan: Plan of care was discussed with the patient. Continue conservative management Continue PT Decadron 4 mg PO q12h Ketorolac 30 mg IM q6h Pantoprazole 40 mg PO QD No indication for NSGY intervention at this time Will continue to follow (Aleksandar Ricketts) Attending Statement I have personally seen and examined the patient on the date of this note. Pertinent documentation and study results have been reviewed by the undersigned. I have personally developed the treatment plan and performed medical decision making. Agree with findings, exam, and treatment plan as noted above. On my examination today the patient remains very painful. Nearly tearful at times. Still has excruciating tenderness primarily over the mid to lower right gluteal region, specifically over the right sciatic notch with complaining of pain radiating to the posterior right lower extremity with this compression. Sensation intact by touch in the lower extremities He has significant pain with right lower extremity motor testing, but with encouragement is able to maintain essentially at least brief normal strength in all major flexion and extension groups , inversion and eversion of the foot and the right lower extremity MRI of the hip 06/07/17 does not reveal any definite occult fracture. Mild edema in the region of the right posterior trochanter. I discussed the findings with the patient. Plan to begin a trial of gabapentin for possible sciatic neuropathy Continue to progress in physical therapy as tolerated with continued pain medications, muscle relaxants, anti-inflammatory medications (Zacarias Garay MD ) Aleksandar Ricketts Jun 07, 2017 14:51 Zacarias Garay MD Jun 07, 2017 19:17
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
[2017-06-07] MEDS: GABAPENTIN 300 MG CAP PO SCH (21:39)
[2017-06-07] MEDS: KETOROLAC TROMETHAMINE 10 MG TAB PO SCH (23:03)
[2017-06-08] VITALS (10 sets, daily range): BP systolic 105–152; BP diastolic 59–86; PULSE 47–86; RESP 16–20; TEMP 96.2–98.9; O2SAT 94–100
[2017-06-08] MEDS: PIPERACIL-TAZO 4.5 GM PREMIX 100 ML IV SCH ×2 (04:02→11:43)
[2017-06-08] MEDS: ACETAMINOPHEN/HYDROcodone 325 MG/10 MG TAB PO PRN ×5 (04:02→20:08)
[2017-06-08] MEDS: SODIUM CHLOR 0.9% 1000 ML INJ 1,000 ML IV SCH ×3 (04:03→20:10)
[2017-06-08] MEDS: VANCOMYCIN INJ 1,250 MG in SODIUM CHLOR 0.9% 250 ML INJ 250 ML IV SCH (05:00)
[2017-06-08] MEDS: KETOROLAC TROMETHAMINE 10 MG TAB PO SCH ×3 (05:01→15:56)
[2017-06-08] MEDS: HYDROmorphone HCL PF 2 MG/ML VIAL IV PUSH PRN ×5 (05:02→21:27)
[2017-06-08] MEDS: DEXAMETHASONE 4 MG TAB PO SCH ×2 (08:09→20:08)
[2017-06-08] MEDS: GABAPENTIN 300 MG CAP PO SCH ×2 (08:09→20:08)
[2017-06-08] MEDS: PANTOPRAZOLE SOD 40 MG DELAYED RELEASE TAB PO SCH (08:09)
[2017-06-08] MEDS: SODIUM CHLORIDE 0.9% FLUSH 10 ML FLUSH IV FLUSH SCH ×3 (08:10→20:10)
[2017-06-08] MEDS: METHOCARBAMOL INJ 1,000 MG in SODIUM CHLOR 0.9% 250 ML INJ 240 ML IV SCH ×2 (08:10→15:55)
[2017-06-08] MEDS: DOCUSATE SODIUM 50 MG/SENNA 8.6 MG TAB PO SCH (08:13)
[2017-06-08] MEDS: SENNOSIDES 8.6 MG TAB PO PRN (08:21)
[2017-06-08] MEDS: MAGNESIUM HYDROXIDE SUSP 30 ML CUP PO PRN (08:21)
[2017-06-08] MEDS: LACTULOSE SYRUP 20 GM/30 ML CUP PO PRN (08:21)
[2017-06-08] MEDS: ONDANSETRON HCL 4 MG/2 ML VIAL IVP PRN ×2 (09:17→15:55)
--- NOTE | 2017-06-08 12:16 | HHI.PR ---
Subjective Remarks Follow-up right lower extremity sciatica 06/07/17-patient seen and examined, complains of right lower extremity pain 06/08/17-patient seen and examined, able to move right lower extremity. States did not use any pain medication overnight until this morning .currently afebrile. Objective Vitals Vital Signs Date Time Temp Pulse Resp B/P Pulse Ox O2 Delivery O2 Flow Rate FiO2 06/08/17 08:14 47 06/08/17 08:00 96.2 51 19 123/75 98 06/08/17 04:00 97.0 79 20 144/86 100 06/08/17 01:36 53 06/08/17 00:00 96.5 57 20 121/63 99 06/07/17 21:44 62 06/07/17 21:00 97.0 63 16 126/60 97 06/07/17 16:05 95.8 71 18 119/65 99 06/07/17 13:30 96.7 64 16 144/74 98 I/O 06/07/17 06/07/17 06/07/17 06/08/17 06/08/17 06/08/17 06:59 14:59 22:59 06:59 14:59 22:59 Intake Total 3814 ml 1035 ml 904 ml Output Total 1700 ml 400 ml 300 ml Balance 2114 ml 635 ml 604 ml Intake Oral 1420 ml 240 ml 120 ml IV Total 2394 ml 795 ml 784 ml Output Urine Total 1700 ml 400 ml 300 ml # Bowel Movements 0 0 0 Result Diagram: 06/07/17 0545 06/08/17 0607 Imaging Last Impressions Hip MRI 06/07/17 0000 Signed Impressions: Service Date/Time: Wednesday, June 07, 2017 12:14 - CONCLUSION: 1. There is no evidence of an occult fracture. 2. Very minimal edema in subcutaneous tissues right hip most prominent with the greater trochanteric bursa. 3. There is no evidence of occult fracture or pathological joint effusion. Arun Cheng MD FACR Thoracic Spine MRI 06/05/17 0000 Signed Impressions: Service Date/Time: Monday, June 05, 2017 21:22 - CONCLUSION: 1. Tiny right paracentral protrusion at T10-11 without canal stenosis. 2. Small right paracentral protrusion at T11-12 without canal stenosis. 3. No compression fracture or spondylolisthesis. Justo Mayen MD Lumbar Spine MRI 06/05/17 0000 Signed Impressions: Service Date/Time: Monday, June 05, 2017 21:22 - CONCLUSION: 1. Minimal broad-based disc bulges at L3-4 and L4-5 levels without canal stenosis. 2. Mild broad-based protrusion more eccentric to the left at L5-S1 abuts the S1 nerve roots greater on the left. No canal stenosis. Justo Mayen MD Femur X-Ray 06/05/17 Signed Impressions: Service Date/Time: Tuesday, June 06, 2017 00:23 - CONCLUSION: Unremarkable examination of the right femur. Kaleb Heart MD Cervical Spine MRI 06/05/17 Signed Impressions: Service Date/Time: Monday, June 05, 2017 21:22 - CONCLUSION: Unremarkable cervical spine. Justo Mayen MD Abdomen/Pelvis CT 06/05/17 Signed Impressions: Service Date/Time: Wednesday, June 07, 2017 10:53 - CONCLUSION: 1. No acute abnormality. 2. Bibasilar atelectasis. Stephen Best Jr., MD Objective Remarks GENERAL: NAD SKIN: Warm and dry. HEAD: Normocephalic. EYES: No scleral icterus. No injection or drainage. NECK: Supple, trachea midline. No JVD or lymphadenopathy. CARDIOVASCULAR: Regular rate and rhythm without murmurs, gallops, or rubs. RESPIRATORY: Breath sounds equal bilaterally. No accessory muscle use. GASTROINTESTINAL: Abdomen soft, non-tender, nondistended. MUSCULOSKELETAL: No cyanosis, or edema. RLE limited ROM BACK: Nontender without obvious deformity. No CVA tenderness. A/P Problem List: (1) SIRS (systemic inflammatory response syndrome) ICD Code: R65.10 Status: Acute (2) Sciatica of right side ICD Code: M54.31 Status: Acute (3) Intractable pain ICD Code: R52 Status: Acute Assessment and Plan 21-year-old man with 1. SIRS: Resolved therefore will discontinue all antibiotics including Zosyn and vancomycin today 06/08/17 2. Sciatica: S/p eval by Dr. Garay in ER, recommendation for MRI, C-Spine MRI unremarkable, T-Spine MRI w/ tiny right paracentral protrusion T10-11 and T11- T12, no canal stenosis. L-Spine MRI w/ minimal broad based disc bulges at L3-4 and L4-5 without canal stenosis. Continue with Decadron 4 mg every 12H and PPI daily as well as Robaxin. PT to treat and eval. Hip MRI noted and review. Currently on Neurontin and add Pamelor. Consider Flexeril. Appreciate input from neurosurgery and no indication at this time for surgery 3. Intractable Pain: Analgesics, antiemetics, muscle relaxants. Justo Aguirre MD Jun 08, 2017 12:16
--- NOTE | 2017-06-08 12:53 | HHI.NSPN ---
(Aleksandar Ricketts) History Chief Complaint: Right buttock pain (Aleksandar Ricketts) Interval History 06/05: 21-year-old male who states that 3 days ago he fell and landed on his buttock while skateboarding. Initially he had some pain in the right leg which was not severe but has become much worse over the past 3 days. He presents to the emergency room this evening the third time in 3 days with complaint of persistent severe pain in the right gluteal region radiating primarily to the posterior right lower extremity done of the foot. He has had some swelling in the right foot. No definite fevers or chills. No left lower extremity symptoms. No pain weakness or numbness in the upper extremities. No complaint of bowel or bladder dysfunction. He has occasional spasms in the right leg 06/06: The patient is seen with Dr Garay this afternoon. He continues to have pain to the right buttock that radiates down the right lower extremity. He continues to still have some spasms down the extremity. He reports that the left foot swelling and numbness are better today. 06/07: The patient is with moderately severe distress secondary to right buttock pain after standing with Physical Therapy. He also reports having "liver" pain this morning. The patient had a CT abdomen & pelvis done this morning which was unremarkable except for bibasilar atelectasis. An MRI of the right hip was completed but the report is still pending. 06/08: The patient is moderately distressed when seen due to pain to the right buttock and lateral hip. He states that he is having pain due to getting up and ambulating to the bathroom with standby assistance from Nursing. He does say he was able to ambulate further today than yesterday. (Aleksandar Ricketts) System Review Comments Constitutional: Patient denies any fever or chills. HEENT: Patient denies any visual or hearing difficulty. Respiratory: Patient denies any shortness of breath or productive cough. Cardiovascular: Patient denies any chest pain, palpitations or irregular heartbeat. Gastrointestinal: Patient denies any abdominal pain, nausea, vomiting or incontinence of stool. Genitourinary: Patient denies any incontinence of urine. Musculoskeletal: Patient complains of pain to the right buttock and hip after having walked to the bathroom and back. Neurologic: Patient denies any headache, dizziness numbness, or tingling. ( Aleksandar Ricketts) Exam Results Vital Signs Date Time Temp Pulse Resp B/P Pulse Ox O2 Delivery O2 Flow Rate FiO2 06/08/17 08:14 47 06/08/17 08:00 96.2 19 123/75 98 06/05/17 23:03 Room Air Intake and Output 06/07/17 06/07/17 06/08/17 08:00 16:00 00:00 Intake Total 600 ml 3214 ml 1035 ml Output Total 1000 ml 700 ml 400 ml Balance -400 ml 2514 ml 635 ml (Aleksandar Ricketts) Physical Examination GENERAL: Patient awake & alert and appears uncomfortable w/moderate distress secondary to pain. His affect is normal. SKIN: Warm, dry & intact, no evident rashes, ulcerations or other lesions. HEENT: Normocephalic, atraumatic. NECK: No JVD, trachea midline. RESPIRATORY: CTAB w/o W/R/R,equal excursion, nonlaboured, on RA. CARDIOVASCULAR: S1S2 w/fast but regular rate w/o M/G/R, radial & pedal pulses 2+ , cap refill < 2 sec, no pedal edema. GASTROINTESTINAL: Abdomen soft, nontender, positive bowel sounds. MUSCULOSKELETAL: LLE NTTP, right lateral thigh & sciatic notch TTP. NEUROLOGICAL: AAOx3 Speech clear & appropriate Follows simple commands w/o difficulty Sensation intact to light touch to the lower extremities Assessment limited due to pain but motor strength RLE 4/5 hip flexion and plantar flexion & extension, LLE 5/5 to all flexion & extension muscle groups. 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 No definite piriformis syndrome. It seems doubtful that the relatively mild L4 5 lateral recess stenosis with what appears to be a more chronic central disc displacement is to cause of his severe acute pain. CT abdomen & pelvis unremarkable except for bibasilar atelectasis. MRI right hip demonstrates minimal edema to the subcutaneous tissues in the right hip and most prominent with the greater trochanteric bursa, no evidence of occult fracture or pathological joint effusion. Patient with pain after ambulating, his motor function seems to continue to improve but assessment is limited due to pain. Plan: Plan of care was discussed with the patient. Continue conservative management Continue PT Decadron 4 mg PO q12h Ketorolac 30 mg IM q6h Pantoprazole 40 mg PO QD No indication for NSGY intervention at this time Will continue to follow (Aleksandar Ricketts) Attending Statement I have personally seen and examined the patient on the date of this note. Pertinent documentation and study results have been reviewed by the undersigned. I have personally developed the treatment plan and performed medical decision making. Agree with findings, exam, and treatment plan as noted above. Patient remains with severe right gluteal pain with intermittent radiation to the posterior right lower extremity. Still a significant right sciatic notch tenderness. Possible right sciatic neuropathy Continuing conservative treatment, Toradol, pain medications, muscle relaxants, physical therapy Patient ambulated a little bit more today in his room with a walker but still very painful. (Zacarias Garay MD) Aleksandar Ricketts Jun 08, 2017 12:53 Zacarias Garay MD Jun 08, 2017 20:13
[2017-06-08] MEDS ORDERED: PHARMACY ORDERED LAB ONE (13:45)
[2017-06-08] MEDS ORDERED: NORTRIPTYLINE HCL 25 MG CAP PO SCH (21:00)
[2017-06-09] MEDS: ACETAMINOPHEN/HYDROcodone 325 MG/10 MG TAB PO PRN ×4 (00:27→14:35)
[2017-06-09] MEDS: KETOROLAC TROMETHAMINE 10 MG TAB PO SCH ×3 (00:27→11:40)
[2017-06-09] MEDS: SODIUM CHLOR 0.9% 1000 ML INJ 1,000 ML IV SCH (00:27)
[2017-06-09] MEDS: HYDROmorphone HCL PF 2 MG/ML VIAL IV PUSH PRN ×3 (01:34→11:40)
[2017-06-09] MEDS: GABAPENTIN 300 MG CAP PO SCH (07:37)
[2017-06-09] MEDS: PANTOPRAZOLE SOD 40 MG DELAYED RELEASE TAB PO SCH (07:37)
[2017-06-09] MEDS: SENNOSIDES 8.6 MG TAB PO PRN (07:37)
[2017-06-09] MEDS: MAGNESIUM HYDROXIDE SUSP 30 ML CUP PO PRN (07:37)
[2017-06-09] MEDS: DEXAMETHASONE 4 MG TAB PO SCH (07:37)
[2017-06-09] MEDS: SODIUM CHLORIDE 0.9% FLUSH 10 ML FLUSH IV FLUSH SCH (07:38)
[2017-06-09 08:00] VITALS: BP 149/88; PULSE 52; RESP 18; TEMP 96.8; O2SAT 100
--- NOTE | 2017-06-09 11:31 | HHI.PR ---
Subjective Remarks Follow-up right lower extremity sciatica 06/07/17-patient seen and examined, complains of right lower extremity pain 06/08/17-patient seen and examined, able to move right lower extremity. States did not use any pain medication overnight until this morning .currently afebrile. 06/09/17-patient seen and examined, and complains of right lower stomach pain however improved from yesterday. patient states he was able to get out of bed yesterday and walked about 1 his own. Objective Vitals Vital Signs Date Time Temp Pulse Resp B/P Pulse Ox O2 Delivery O2 Flow Rate FiO2 06/09/17 08:00 96.8 52 18 149/88 100 06/08/17 23:35 96.9 70 16 135/72 100 06/08/17 20:30 96.6 47 17 147/82 99 06/08/17 16:00 97.2 58 18 118/59 99 06/08/17 12:00 96.2 57 18 124/68 99 I/O 06/08/17 06/08/17 06/08/17 06/09/17 06/09/17 06/09/17 07:00 15:00 23:00 07:00 15:00 23:00 Intake Total 904 ml 2244 ml 307 ml 480 ml Output Total 300 ml 1300 ml 800 ml Balance 604 ml 944 ml 307 ml -320 ml Intake Oral 120 ml 1200 ml 480 ml IV Total 784 ml 1044 ml 307 ml Output Urine Total 300 ml 1300 ml 800 ml # Voids 1 # Bowel Movements 0 0 0 Result Diagram: 06/07/17 0545 06/08/17 0607 Imaging Last Impressions Hip MRI 06/07/17 0000 Signed Impressions: Service Date/Time: Wednesday, June 07, 2017 12:14 - CONCLUSION: 1. There is no evidence of an occult fracture. 2. Very minimal edema in subcutaneous tissues right hip most prominent with the greater trochanteric bursa. 3. There is no evidence of occult fracture or pathological joint effusion. Arun Cheng MD FACR Thoracic Spine MRI 06/05/17 0000 Signed Impressions: Service Date/Time: Monday, June 05, 2017 21:22 - CONCLUSION: 1. Tiny right paracentral protrusion at T10-11 without canal stenosis. 2. Small right paracentral protrusion at T11-12 without canal stenosis. 3. No compression fracture or spondylolisthesis. Justo Mayen MD Lumbar Spine MRI 06/05/17 Signed Impressions: Service Date/Time: Monday, June 05, 2017 21:22 - CONCLUSION: 1. Minimal broad-based disc bulges at L3-4 and L4-5 levels without canal stenosis. 2. Mild broad-based protrusion more eccentric to the left at L5-S1 abuts the S1 nerve roots greater on the left. No canal stenosis. Justo Mayen MD Femur X-Ray 06/05/17 Signed Impressions: Service Date/Time: Tuesday, June 06, 2017 00:23 - CONCLUSION: Unremarkable examination of the right femur. Kaleb Heart MD Cervical Spine MRI 06/05/17 Signed Impressions: Service Date/Time: Monday, June 05, 2017 21:22 - CONCLUSION: Unremarkable cervical spine. Justo Mayen MD Abdomen/Pelvis CT 06/05/17 Signed Impressions: Service Date/Time: Wednesday, June 07, 2017 10:53 - CONCLUSION: 1. No acute abnormality. 2. Bibasilar atelectasis. Stephen Best Jr., MD Objective Remarks GENERAL: NAD SKIN: Warm and dry. HEAD: Normocephalic. EYES: No scleral icterus. No injection or drainage. NECK: Supple, trachea midline. No JVD or lymphadenopathy. CARDIOVASCULAR: Regular rate and rhythm without murmurs, gallops, or rubs. RESPIRATORY: Breath sounds equal bilaterally. No accessory muscle use. GASTROINTESTINAL: Abdomen soft, non-tender, nondistended. MUSCULOSKELETAL: No cyanosis, or edema. RLE limited ROM BACK: Nontender without obvious deformity. No CVA tenderness. Procedures No procedure A/P Problem List: (1) SIRS (systemic inflammatory response syndrome) ICD Code: R65.10 Status: Acute (2) Sciatica of right side ICD Code: M54.31 Status: Acute (3) Intractable pain ICD Code: R52 Status: Acute Assessment and Plan 21-year-old man with 1. SIRS: Resolved . s/p Zosyn and vancomycin 2. Sciatica: S/p eval by Dr. Garay in ER, recommendation for MRI, C-Spine MRI unremarkable, T-Spine MRI w/ tiny right paracentral protrusion T10-11 and T11- T12, no canal stenosis. L-Spine MRI w/ minimal broad based disc bulges at L3-4 and L4-5 without canal stenosis. Continue with Decadron 4 mg every 12H and PPI daily as well as Robaxin. PT to treat and eval. Hip MRI noted and review. Currently on Neurontin and Pamelor. Will add Flexeril on discharge. Appreciate input from neurosurgery and no indication at this time for surgery therefore will discharge patient home 3. Intractable Pain: Analgesics, antiemetics, muscle relaxants. Justo Aguirre MD Jun 09, 2017 11:31
[2017-06-09] MEDS ORDERED: PERI8.6T PO (11:34)
[2017-06-09] MEDS ORDERED: NORT25CA PO (11:34)
[2017-06-09] MEDS ORDERED: CYCL1TAB29 PO (11:34)
[2017-06-09] MEDS ORDERED: NEUR300C PO (11:34)
[2017-06-09] MEDS ORDERED: HYDR-3288 PO (11:34)
--- NOTE | 2017-06-09 11:38 | HHI.DS ---
Discharge Summary Admission Date Jun 05, 2017 at 23:58 Discharge Date: Jun 09, 2017 Admitting Diagnosis intractable pain; sciatica; sirs (1) SIRS (systemic inflammatory response syndrome) ICD Code: R65.10 (2) Sciatica of right side ICD Code: M54.31 (3) Intractable pain ICD Code: R52 Procedures No procedure Brief History - From Admission This is a 21-year-old male with a PMH of Asthma who presented to the ER with complaints of severe right sided back pain in addition to right leg pain which started earlier this evening. Seen in ER on 06/03/17 for similar complaints after developing severe right leg pain after skateboarding, initially denied injury/trauma, however later recalled fall while skateboarding, landed on his right buttock. S/p Decadron, Norflex and Ibuprofen in ER w/ significant improvement and d/c'd home. L-Spine X-ray 06/03/17 w/ no acute findings. Returned to ER again on 06/04/17 for ongoing complaints, s/p Toradol/Norflex and d/c'd home. Returns once again, now w/ severe back/leg pain and difficulty w/ ambulation. Denies incontinence of urine/feces or saddle anesthesia. On arrival, BP 157/79, HR 104, O2 sat 100% on RA, Temp 100 point WBC 11.2. Chemistry essentially unremarkable. Lactic Acid 1.2. UA negative. Dr. Garay consulted by ER physician, recommended MRI, C-Spine MRI unremarkable, T-Spine MRI w/ tiny right paracentral protrusion T10-11 and T11-T12, no canal stenosis. L-Spine MRI w/ minimal broad based disc bulges at L3-4 and L4-5 without canal stenosis. On exam, pt w/ severe right gluteal pain w/ radiculopathy, s/p eval by Dr. Garay in ER, thought to be related to underlying sciatica. No obvious abscess noted. CBC/BMP: 06/07/17 0545 06/08/17 0607 Significant Findings Laboratory Tests Test 06/07/17 06/08/17 05:45 06:07 Red Blood Count 4.38 MIL/MM3 (4.50-5.90) Hemoglobin 11.3 GM/DL (13.0-17.0) Hematocrit 34.2 % (39.0-51.0) Mean Corpuscular Volume 78.0 FL (80.0-100.0) Mean Corpuscular Hemoglobin 25.7 PG (27.0-34.0) Neutrophils (%) (Auto) 84.7 % (16.0-70.0) Lymphocytes # (Auto) 0.9 TH/MM3 (1.0-4.8) Creatinine 0.57 MG/DL 0.55 MG/DL (0.60-1.30) (0.60-1.30) Random Glucose 138 MG/DL (74-106) Imaging Last Impressions Hip MRI 06/07/17 Signed Impressions: Service Date/Time: Wednesday, June 07, 2017 12:14 - CONCLUSION: 1. There is no evidence of an occult fracture. 2. Very minimal edema in subcutaneous tissues right hip most prominent with the greater trochanteric bursa. 3. There is no evidence of occult fracture or pathological joint effusion. Arun Cheng MD FACR Thoracic Spine MRI 06/05/17 Signed Impressions: Service Date/Time: Monday, June 05, 2017 21:22 - CONCLUSION: 1. Tiny right paracentral protrusion at T10-11 without canal stenosis. 2. Small right paracentral protrusion at T11-12 without canal stenosis. 3. No compression fracture or spondylolisthesis. Justo Mayen MD Lumbar Spine MRI 06/05/17 Signed Impressions: Service Date/Time: Monday, June 05, 2017 21:22 - CONCLUSION: 1. Minimal broad-based disc bulges at L3-4 and L4-5 levels without canal stenosis. 2. Mild broad-based protrusion more eccentric to the left at L5-S1 abuts the S1 nerve roots greater on the left. No canal stenosis. Justo Mayen MD Femur X-Ray 06/05/17 Signed Impressions: Service Date/Time: Tuesday, June 06, 2017 00:23 - CONCLUSION: Unremarkable examination of the right femur. Kaleb Heart MD Cervical Spine MRI 06/05/17 0000 Signed Impressions: Service Date/Time: Monday, June 05, 2017 21:22 - CONCLUSION: Unremarkable cervical spine. Justo Mayen MD Abdomen/Pelvis CT 06/05/17 0000 Signed Impressions: Service Date/Time: Wednesday, June 07, 2017 10:53 - CONCLUSION: 1. No acute abnormality. 2. Bibasilar atelectasis. Stephen Best Jr., MD PE at Discharge GENERAL: NAD SKIN: Warm and dry. HEAD: Normocephalic. EYES: No scleral icterus. No injection or drainage. NECK: Supple, trachea midline. No JVD or lymphadenopathy. CARDIOVASCULAR: Regular rate and rhythm without murmurs, gallops, or rubs. RESPIRATORY: Breath sounds equal bilaterally. No accessory muscle use. GASTROINTESTINAL: Abdomen soft, non-tender, nondistended. MUSCULOSKELETAL: No cyanosis, or edema. RLE limited ROM BACK: Nontender without obvious deformity. No CVA tenderness. Hospital Course 1. SIRS: Initially treated with Zosyn and vancomycin although this were discontinued 2. Sciatica: T-Spine MRI w/ tiny right paracentral protrusion T10-11 and T11- T12, no canal stenosis. L-Spine MRI w/ minimal broad based disc bulges at L3-4 and L4-5 without canal stenosis. Patient was treated with with Decadron 4 mg every 12H, Neurontin, Pamelor and PPI daily as well as Robaxin. PT to treat and eval. From neurosurgery there was no indication at this time for surgery 3. Intractable Pain: Analgesics, antiemetics, muscle relaxants. Pt Condition on Discharge: Stable Discharge Disposition: Discharge Home Discharge Time: <= 30 minutes Discharge Instructions DIET: Follow Instructions for: As Tolerated, No Restrictions Activities you can perform: Regular-No Restrictions Follow up Referrals: Neurosurgery PCP Follow-up - 1 Week New Medications: Cyclobenzaprine (Flexeril) 10 Mg Tab 10 MG PO TID Muscle Spasm #30 Ref 0 TAB Hydrocodone-Acetaminophen ([place]) 7.5-325 mg Tab 1 TAB PO Q6H PRN PAIN #20 Ref 0 TAB Sennosides-Docusate Sodium (Ara-Colace) 8.6-50 Mg Tab 1 TAB PO BID PRN Constipation #20 Ref 0 TAB Gabapentin (Neurontin) 300 Mg Cap 300 MG PO BID Pain Management #20 CAP Nortriptyline (Nortriptyline) 25 Mg Cap 25 MG PO HS Pain Management #30 CAP Continued Medications: Tramadol (Ultram) 50 Mg Tab 50 MG PO Q6H PRN PAIN #7 Ref 0 TAB Discontinued Medications: Ibuprofen (Ibuprofen) 800 Mg Tab 800 MG PO Q8H PRN PAIN GREATER THAN 5 #12 Ref 0 TAB Methocarbamol (Robaxin) 750 Mg Tab 750 MG PO Q6HR Muscle Spasm #12 Ref 0 TAB Justo Aguirre MD Jun 09, 2017 11:38
[2017-06-09 12:00] VITALS: BP 149/74; PULSE 73; RESP 19; TEMP 96.1; O2SAT 99
--- NOTE | 2017-06-09 16:37 | HHI.NSPN ---
History Chief Complaint: Right buttock pain Interval History 06/05: 21-year-old male who states that 3 days ago he fell and landed on his buttock while skateboarding. Initially he had some pain in the right leg which was not severe but has become much worse over the past 3 days. He presents to the emergency room this evening the third time in 3 days with complaint of persistent severe pain in the right gluteal region radiating primarily to the posterior right lower extremity done of the foot. He has had some swelling in the right foot. No definite fevers or chills. No left lower extremity symptoms. No pain weakness or numbness in the upper extremities. No complaint of bowel or bladder dysfunction. He has occasional spasms in the right leg 06/06: The patient is seen with Dr Garay this afternoon. He continues to have pain to the right buttock that radiates down the right lower extremity. He continues to still have some spasms down the extremity. He reports that the left foot swelling and numbness are better today. 06/07: The patient is with moderately severe distress secondary to right buttock pain after standing with Physical Therapy. He also reports having "liver" pain this morning. The patient had a CT abdomen & pelvis done this morning which was unremarkable except for bibasilar atelectasis. An MRI of the right hip was completed but the report is still pending. 06/08: The patient is moderately distressed when seen due to pain to the right buttock and lateral hip. He states that he is having pain due to getting up and ambulating to the bathroom with standby assistance from Nursing. He does say he was able to ambulate further today than yesterday. 06/09: The patient is sitting up in a chair when seen this afternoon. He continues with the pain to the right buttock at the sciatic notch and to the right lateral hip to a lesser extent. He does say he has some numbness to the right foot. The weakness to the right lower extremity persists. Patient has been discharged by the Attending Physician. System Review Comments Constitutional: Patient denies any fever or chills. HEENT: Patient denies any visual or hearing difficulty. Respiratory: Patient denies any shortness of breath or productive cough. Cardiovascular: Patient denies any chest pain, palpitations or irregular heartbeat. Gastrointestinal: Patient denies any abdominal pain, nausea, vomiting or incontinence of stool. Genitourinary: Patient denies any incontinence of urine. Musculoskeletal: Patient with right buttock and hip pain with some numbness to the foot, the right leg is still weak. Neurologic: Patient denies any headache, dizziness numbness, or tingling. Exam Results Vital Signs Date Time Temp Pulse Resp B/P Pulse Ox O2 Delivery O2 Flow Rate FiO2 06/09/17 12:00 96.1 73 19 149/74 99 06/05/17 23:03 Room Air Intake and Output 06/08/17 06/08/17 06/09/17 08:00 16:00 00:00 Intake Total 904 ml 720 ml 1524 ml Output Total 300 ml 500 ml 800 ml Balance 604 ml 220 ml 724 ml Physical Examination GENERAL: Patient awake & alert, no apparent distress, appears fairly comfortable sitting up in a chair. Affect normal. SKIN: Warm, dry & intact, no evident rashes, ulcerations or other lesions. HEENT: Normocephalic, atraumatic. NECK: No JVD, trachea midline. RESPIRATORY: CTAB w/o W/R/R,equal excursion, nonlaboured, on RA. CARDIOVASCULAR: S1S2 w/RRR w/o M/G/R, radial & pedal pulses 2+, cap refill < 2 sec, no pedal edema. GASTROINTESTINAL: Abdomen soft, nontender, positive bowel sounds. MUSCULOSKELETAL: LLE NTTP, right lateral thigh & sciatic notch TTP. NEUROLOGICAL: AAOx3 Speech clear & appropriate Follows simple commands w/o difficulty Sensation intact to light touch to the lower extremities Assessment limited due to pain but motor strength RLE 3+/5 hip flexion & knee flexion, 4+/5 knee extension and plantar flexion & 5/5 plantar extension, LLE 5/ 5 to all flexion & extension muscle groups. 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 No definite piriformis syndrome. It seems doubtful that the relatively mild L4 5 lateral recess stenosis with what appears to be a more chronic central disc displacement is to cause of his severe acute pain. CT abdomen & pelvis unremarkable except for bibasilar atelectasis. MRI right hip demonstrates minimal edema to the subcutaneous tissues in the right hip and most prominent with the greater trochanteric bursa, no evidence of occult fracture or pathological joint effusion. Patient with essentially stable neurological exam, pain persists. Plan: Plan of care was discussed with the patient. Continue conservative management Continue PT Decadron 4 mg PO q12h Ketorolac 30 mg IM q6h Pantoprazole 40 mg PO QD No indication for NSGY intervention at this time Will continue to follow Patient has been discharged by Attending Service Aleksandar Ricketts Jun 09, 2017 16:37
== END 2017-06-09 16:48 | disposition home health service (06) | DRG 872 ==
LOC: NEPC 20:32 → NEDA 23:58 → N06A 06-06 00:47
PROVIDERS: ADMIT Hospitalist; ATTEND Hospitalist
DX: A41.9 Sepsis, unspecified organism (principal); J98.11 Atelectasis; M54.41 Lumbago with sciatica, right side; M54.10 Radiculopathy, site unspecified; J45.909 Unspecified asthma, uncomplicated; R60.0 Localized edema
CPT/HCPCS: 72141; 72146; 72148; 73552; 73723; 74177; 80048; 80053; 81001; 82565; 83605; 85025; 96361; 96374; 96375; 96376; A9579; J1170; J1885; J2060; J2405; J2543; J2800; J3370; J7030; J7040; J7050; J8540; Q9967

== ENCOUNTER 2017-06-25 20:27 | Inpatient (IN) | payer SELFPAY ==
[~2017-06-25] VITALS: Ht 175.3 cm; Wt 77.5 kg
[~2017-06-25 20:27] MED LIST changes: +CYCL1TAB29 PO; +HYDR-3288 PO; -IBUP800T23 PO; +NAPR500T PO; +NEUR300C PO; +NORT25CA PO; +PERI8.6T PO; +PRED10 PO; -ROBA750T PO
[2017-06-25 20:29] VITALS: BP 158/63; PULSE 138; RESP 15; TEMP 98.4; O2SAT 99
--- NOTE | 2017-06-25 21:00 | PD ---
Physical Exam Date Seen by Provider: Jun 25, 2017 Time Seen by Provider: 20:57 Data Data Last Documented VS Vital Signs Date Time Temp Pulse Resp B/P Pulse Ox O2 Delivery O2 Flow Rate FiO2 06/25/17 20:29 98.4 138 15 158/63 99 Room Air [facility] Supervised Visit with TYLER: No Narrative Course 21 YO M with complaint of right sided leg pain and weakness. Patient had a skateboarding accident a few weeks ago, was admitted, evaluated by neuro and discharged. Patient states that he cannot bear weight on the leg. States pain is worse since discharge. Denies new injury. Endorses right sided groin numbness. Denies urinary or fecal incontinence. Vitals reviewed. Patient seen in triage, awaiting bed placement. Viola Magana Jun 25, 2017 21:00
[2017-06-25] MEDS ORDERED: PRED10 PO (22:34)
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
[2017-06-25] MEDS ORDERED: MORPHINE SULFATE 8 MG/ML INJ IV PUSH ONE (23:15)
[2017-06-25] MEDS ORDERED: SODIUM CHLORIDE 0.9% FLUSH 10 ML FLUSH IV FLUSH PRN (23:15)
[2017-06-25 23:42] VITALS: O2SAT 98
[2017-06-25 23:43] VITALS: BP 129/72; PULSE 100; RESP 16; O2SAT 99
[2017-06-26] VITALS (8 sets, daily range): BP systolic 119–136; BP diastolic 58–70; PULSE 91–113; RESP 16–18; TEMP 97.3–98.5; O2SAT 97–99
[2017-06-26] MEDS ORDERED: KETOROLAC TROMETHAMINE 30 MG/ML (IVP) VIAL IV PUSH ONE (00:15)
[2017-06-26 00:16] LABS: AUTOMATED NEUTROPHIL # 7.9 TH/MM3 (1.8-7.7); BASOPHIL % 0.3 % (0.0-2.0); EOSINOPHIL # 0.2 TH/MM3 (0-0.4); EOSINOPHIL % 1.7 % (0.0-4.0); HEMO FLAGS DIFF FINAL; LYMPH % 27.5 % (9.0-44.0); LYMPHOCYTE # 3.6 TH/MM3 (1.0-4.8); MEAN CELL VOLUME 78.2 FL (80.0-100.0); MEAN CORPUSCULAR HEMOGLOBIN 25.6 PG (27.0-34.0); MEAN CORPUSCULAR HGB CONC 32.7 % (32.0-36.0); MONO % 10.1 % (0.0-8.0); NEUT % 60.4 % (16.0-70.0); PLATELET COUNT 330 TH/MM3 (150-450); RED CELL DISTRIBUTION WIDTH 16.2 % (11.6-17.2); WHITE BLOOD COUNT 13.1 TH/MM3 (4.0-11.0)
[2017-06-26 00:23] LABS: BICARBONATE 29.7 MEQ/L (21.0-32.0); POTASSIUM 4.2 MEQ/L (3.5-5.1)
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
[2017-06-26] MEDS ORDERED: ONDANSETRON HCL 4 MG/2 ML VIAL IVP PRN (03:15)
[2017-06-26] MEDS ORDERED: DIAZEPAM 5 MG TAB PO PRN (03:15)
[2017-06-26] MEDS ORDERED: methylPREDNISolone SOD SUCC 125 MG/2 ML VIAL IV PUSH ONE (03:15)
[2017-06-26] MEDS ORDERED: SENNOSIDES 8.6 MG TAB PO PRN (03:15)
[2017-06-26] MEDS ORDERED: ACETAMINOPHEN 325 MG TAB PO PRN (03:15)
[2017-06-26] MEDS ORDERED: LACTULOSE SYRUP 20 GM/30 ML CUP PO PRN (03:15)
[2017-06-26] MEDS ORDERED: MAGNESIUM HYDROXIDE SUSP 30 ML CUP PO PRN (03:15)
[2017-06-26] MEDS ORDERED: BISACODYL 10 MG SUPP RECTAL PRN (03:15)
--- NOTE | 2017-06-26 04:11 | HHI.HP ---
[facility] No Primary Care Physician Admission Diagnosis Inability to ambulate, Right lower extremity sciatica. Diagnoses: (1) Intractable back pain Diagnosis: Principal (2) Gait instability Diagnosis: Principal (3) Leukocytosis Diagnosis: Principal Travel History International Travel<30 Days: No Contact w/Intl Traveler <30 Da: No Traveled to Known Affected Are: No History of Present Illness This is a 21-year-old male with PMH of Asthma who presented to the ER with complaints of severe right sided sciatic pain. Recent admit 06/05-06/09/17 for similar complaints, +severe back pain following fall while skateboarding, s/p eval by [facility], MRI w/ small paracentral protrusion on T10-11, and T11-12, minimal disc bulges L3-4 and L4-5, no surgical indication, s/p Decadron and PT. [facility]17 and was told he could not be referred for further PT, also told they could not assist him w/ wheelchair. Has been unable to ambulate since last discharge due to severe pain. MRI T/L-Spine today w/ similar findings to previous imaging. S/p Toradol and Morphine IV in ER w/ some improvement. Review of Systems Except as stated in HPI: all other systems reviewed are Neg ROS: 14 point review of systems otherwise negative. Past Family Social History Past Medical History PMH: Asthma Past Surgical History PAST SURGICAL HISTORY: Abdominal Surgery Allergies: Coded Allergies: No Known Allergies (Unverified , 06/25/17) Family History PAST FAMILY HISTORY: Reviewed. No h/o DM or CAD Social History PAST SOCIAL HISTORY: Negative for alcohol or drugs. Positive for tobacco. Physical Exam Vital Signs Vital Signs Date Time Temp Pulse Resp B/P Pulse Ox O2 Delivery O2 Flow Rate FiO2 06/26/17 01:19 100 16 136/66 98 Room Air 06/25/17 23:43 100 16 129/72 99 Room Air 06/25/17 23:42 98 Room Air 06/25/17 20:29 98.4 138 15 158/63 99 Room Air Physical Exam PE: GENERAL: Young white male in no acute distress. HEENT: PERRLA, EOMI. No scleral icterus or conjunctival pallor. No lid lag or facial droop. CARDIOVASCULAR: Regular rate and rhythm. No obvious murmurs to auscultation. No chest tenderness to palpation. RESPIRATORY: No obvious rhonchi or wheezing. Clear to auscultation. Breath sounds equal bilaterally. GASTROINTESTINAL: Abdomen soft, non-tender, nondistended. BS normal. MUSCULOSKELETAL: Extremities without clubbing, cyanosis, or edema. No obvious deformities. Decreased ROM of RLE due to pain. NEUROLOGICAL: Awake, alert and oriented x4. No focal neurologic deficits. Moving both upper and lower extremities spontaneously. Laboratory Laboratory Tests Test 06/25/17 23:40 White Blood Count 13.1 Red Blood Count 4.60 Hemoglobin 11.8 Hematocrit 36.0 Mean Corpuscular Volume 78.2 Mean Corpuscular Hemoglobin 25.6 Mean Corpuscular Hemoglobin 32.7 Concent Red Cell Distribution Width 16.2 Platelet Count 330 Mean Platelet Volume 6.8 Neutrophils (%) (Auto) 60.4 Lymphocytes (%) (Auto) 27.5 Monocytes (%) (Auto) 10.1 Eosinophils (%) (Auto) 1.7 Basophils (%) (Auto) 0.3 Neutrophils # (Auto) 7.9 Lymphocytes # (Auto) 3.6 Monocytes # (Auto) 1.3 Eosinophils # (Auto) 0.2 Basophils # (Auto) 0.0 CBC Comment DIFF FINAL Differential Comment Sodium Level 138 Potassium Level 4.2 Chloride Level 103 Carbon Dioxide Level 29.7 Anion Gap 5 Blood Urea Nitrogen 28 Creatinine 0.76 Estimat Glomerular Filtration 127 Rate Random Glucose 93 Calcium Level 8.6 Result Diagram: 06/25/17 2340 06/25/17 2340 Assessment and Plan Problem List: (1) Intractable back pain ICD Code: M54.9 Status: Acute (2) Gait instability ICD Code: R26.81 Status: Acute (3) Leukocytosis ICD Code: D72.829 Status: Acute Assessment and Plan A/P: 1. Intractable Back Pain: recent admit 06/05-06/09/17 for similar complaints following fall while skateboarding, MRI w/ tiny right paracentral protrusion at T10-11 and T11-12 w/ no canal stenosis, minimal broad based disc bulges at L3-4 and L4-5 without stenosis, images reviewed by me, findings similar to previous images. +persistent c/o pain. Continue w/ analgesics/antiemetics as needed, Solu-Medrol, Valium prn for muscle spasms, resume home Gabapentin. PT for eval/ tx 2. Gait Instability: secondary to above, imaging w/ no clear etiology. PT for eval/tx as above. 3. Leukocytosis: WBC 13.1, no shift, likely secondary to steroid therapy. 4. DVT Prophylaxis: SCD/Teds. 5. Social work for d/c planning as needed. 6. Case discussed w/ ER physician at length. Estrellita Joyce MD Jun 26, 2017 04:11
[2017-06-26] MEDS ORDERED: DOCUSATE SODIUM 50 MG/SENNA 8.6 MG TAB PO SCH (09:00)
[2017-06-26] MEDS ORDERED: GABAPENTIN 300 MG CAP PO SCH (09:00)
[2017-06-26] MEDS: predniSONE 10 MG TAB PO SCH (10:27)
[2017-06-26] MEDS: LIDOCAINE HCL 5% PATCH T-DERMAL SCH (10:28)
[2017-06-26] MEDS: REMOVE OLD LIDOCAINE PATCH T-DERMAL SCH (10:28)
--- NOTE | 2017-06-26 11:37 | HHI.PR ---
Subjective Remarks Follow-up for right hip pain and right lower extremity weakness. Patient continues to have right hip pain and right lower showing any weakness overnight. He did get out of bed with PT, but was only able to stand, physical therapist did not walking secondary to pain. The patient is comfortable in his current position in the bed, but pain is worse with movement and standing. He states that he's mostly been spending 90% of his time in in a wheelchair, but has been trying to stand with a walker at home. He was not referred to outpatient PT, but wants to continue physical therapy. He states he gets anxiety secondary to the pain. He states that gabapentin has been the most helpful regarding the pain. He would rather not take opiates. He states that the muscle relaxers he has been taking has not been helping. He didn't really get any benefit from NSAIDs either. He denies any bowel or bladder incontinence. Objective Vitals Vital Signs Date Time Temp Pulse Resp B/P Pulse Ox O2 Delivery O2 Flow Rate FiO2 06/26/17 07:47 97.7 99 18 135/70 99 06/26/17 04:13 97.5 91 18 119/61 99 06/26/17 01:19 100 16 136/66 98 Room Air 06/25/17 23:43 100 16 129/72 99 Room Air 06/25/17 23:42 98 Room Air 06/25/17 20:29 98.4 138 15 158/63 99 Room Air Result Diagram: 06/25/17 2340 06/25/17 2340 Imaging Last Impressions Thoracic Spine MRI 06/26/17 0000 Signed Impressions: Service Date/Time: Monday, June 26, 2017 00:41 - CONCLUSION: 1. Tiny right paracentral protrusion at T10-11 without canal stenosis. 2. Small right paracentral protrusion at T11-12 without canal stenosis. 3. No compression fracture or spondylolisthesis. Justo Mayen MD Lumbar Spine MRI 06/26/17 0000 Signed Impressions: Service Date/Time: Monday, June 26, 2017 00:41 - CONCLUSION: 1. Minimal broad-based disc bulges at L3-4 and L4-5 levels without stenosis. 2. Mild broad-based protrusion more such the left at L5-S1. Justo Mayen MD Objective Remarks GENERAL: Well-developed well-nourished. In no acute distress. SKIN: Warm and dry. No lesions noted. HEENT: Normocephalic. Pupils equal and round. Mucous membranes pink and moist. CARDIOVASCULAR: Regular rate and rhythm. No murmur appreciated. RESPIRATORY: No accessory muscle use. Clear to auscultation. Breath sounds equal bilaterally. GASTROINTESTINAL: Abdomen soft, non-tender, nondistended. Bowel sounds x4. MUSCULOSKELETAL: Tenderness to palpation at the right SI joint. No clubbing or cyanosis. No edema. NEUROLOGICAL: Awake and alert. Moves upper and lower extremities spontaneously. Normal speech. Decreased strength in the right lower extremity. PSYCHIATRIC: Pleasant mood and affect; insight and judgment normal. A/P Problem List: (1) Intractable back pain ICD Code: M54.9 Status: Acute (2) Gait instability ICD Code: R26.81 Status: Acute (3) Leukocytosis ICD Code: D72.829 Status: Acute Assessment and Plan 21-year-old male with PMH of Asthma and recent admission for right sciatic pain who presented with complaints of continued severe right sided sciatic pain Intractable Back Pain: recent admit 06/05-06/09/17 for similar complaints following fall while skateboarding. Presented complaining of persistent pain. Reviewed: On previous admission patient had MRI of the entire spine and right hip. Spinal MRI showed tiny right paracentral protrusion at T10-11 and T11-12 w / no canal stenosis, minimal broad based disc bulges at L3-4 and L4-5 without stenosis. Hip MRI showed no evidence of occult fracture, minimal edema in the subcutaneous tissue right hip most prominent in the greater trochanteric bursa, no pathologic joint effusion. Patient had repeat thoracic and lumbar spine MRI in the ED with no acute changes from previous. -The patient has been treated with NSAIDs, steroids, gabapentin, opiates, muscle relaxers. Essentially has failed outpatient therapy. -Previously evaluated by neurosurgery who recommended no intervention -Patient reports gabapentin has helped, will increase dose. Monitor on telemetry. -Patient reports his pain is mostly from intermittent muscle spasms. Schedule Valium. Tizanidine as needed. -Trial of Lidoderm patch -Continue steroid taper -Continue PT Right lower extremity weakness: Imaging as above. Weakness doesn't seem proportional to pain. Consult neurology. Gait Instability: secondary to above, imaging w/ no clear etiology. Continue daily PT. Case management consulted to assist with continued outpatient PT at discharge. Leukocytosis: WBC 13.1, afebrile, likely secondary to steroid therapy. Monitor. DVT Prophylaxis: SCD/Teds. Discharge Planning Discharge planning symptoms improved and patient is able to ambulate better. Avelino Faust Jun 26, 2017 11:37
[2017-06-26] MEDS: DIAZEPAM 2 MG TAB PO SCH ×2 (13:29→21:18)
[2017-06-26] MEDS: GABAPENTIN 400 MG CAP PO SCH ×2 (13:29→17:51)
[2017-06-26] MEDS: SODIUM CHLORIDE 0.9% FLUSH 10 ML FLUSH IV FLUSH SCH ×2 (13:30→21:00)
--- NOTE | 2017-06-26 20:38 | MB ---
cc: DONTE COCHRAN M.D. DATE OF CONSULTATION 06/26/17 HISTORY OF PRESENT ILLNESS This is a 21-year-old with history of skateboard injury 3 weeks ago when he fell about 3 feet high and landed on his right buttock. He had some immediate pain, though he functioned without major problems in the first day but subsequently has had continuing problems which include pain radiating posteriorly down to his ankle and he has developed weakness in the leg. He has been in the hospital before with evaluations of the spine, abdomen and pelvis, right hip with imaging studies which showed minimal soft tissue injuries, no significant disc disease. He comes back this time and there is a repeat MRI of lumbar spine showing no significant abnormalities. PHYSICAL EXAMINATION The exam shows the patient to be alert, oriented. Ocular movements and visual plummer full. Upper limbs essentially normal. Left lower extremity sensory, motor and reflexes normal. On the right lower extremity he has what appears to be some wasting that is probably diffuse, even might involve the anterior thigh muscles and there is weakness and the exam is limited because of the pain. Interestingly, he does have present reflexes at the knees and ankles and they are minimally, if any, asymmetrical, the left-sided being better than the right but this is questionable. Plantar responses are flexor. He has some diffuse diminished perception to the sensory stimulation on the right leg in comparison to the left. 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 I am a bit surprised that he does have ankle reflex as well as knee reflex which is nearly as good on the right and left but he seems to be having muscle wasting which I believe to be from neuropathic injury rather than muscle disuse. He is going to have an EMG hopefully while he is in the hospital as he has not been able to obtain any outpatient followup presumably because of insurance reasons. He probably does not have any surgically treatable lesion as the imaging studies were negative but I spoke to the ROLANDO You and asked him to discuss with radiology to see if the MRI hip that was done, had showed some reasonable views of the lumbosacral plexus and if not then we might need to do a specific MRI directed to the lumbosacral plexus just to be sure there is no hematoma in the area or any other structural lesions that could be treated by exploration. Otherwise, I asked the patient to use a good cushion while laying on his back and if tolerated better, preferably lay on his left side. Pain management with gabapentin or Lyrica and p.r.n. pain medications and physical therapy. Thank you for asking us to assist in his care. If he stays in the hospital I will follow the neurological course. Donte Cochran MD OFC/EO /7:26 PM /8:25 PM
[2017-06-27] VITALS (12 sets, daily range): BP systolic 114–134; BP diastolic 59–73; PULSE 84–125; RESP 16–24; TEMP 98.1–98.7; O2SAT 96–99
[2017-06-27] MEDS: LIDOCAINE HCL 5% PATCH T-DERMAL SCH ×2 (08:30→16:31)
[2017-06-27] MEDS: REMOVE OLD LIDOCAINE PATCH T-DERMAL SCH (08:43)
[2017-06-27] MEDS: GABAPENTIN 400 MG CAP PO SCH ×3 (08:44→17:55)
[2017-06-27] MEDS: SODIUM CHLORIDE 0.9% FLUSH 10 ML FLUSH IV FLUSH SCH ×2 (08:44→22:04)
[2017-06-27] MEDS: predniSONE 10 MG TAB PO SCH (08:44)
[2017-06-27] MEDS: DIAZEPAM 2 MG TAB PO SCH ×2 (08:47→22:05)
[2017-06-27] MEDS ORDERED: DIAZEPAM 2 MG TAB PO ONE (09:30)
[2017-06-27 10:33] LABS: AUTOMATED NEUTROPHIL # 11.9 TH/MM3 (1.8-7.7); BASOPHIL % 0.2 % (0.0-2.0); EOSINOPHIL # 0.1 TH/MM3 (0-0.4); EOSINOPHIL % 0.6 % (0.0-4.0); HEMATOCRIT 37.1 % (39.0-51.0); HEMO FLAGS DIFF FINAL; LYMPH % 18.4 % (9.0-44.0); LYMPHOCYTE # 2.8 TH/MM3 (1.0-4.8); MEAN CELL VOLUME 78.1 FL (80.0-100.0); MEAN CORPUSCULAR HEMOGLOBIN 25.8 PG (27.0-34.0); MONO % 3.4 % (0.0-8.0); NEUT % 77.4 % (16.0-70.0); PLATELET COUNT 296 TH/MM3 (150-450); RED BLOOD COUNT 4.75 MIL/MM3 (4.50-5.90); RED CELL DISTRIBUTION WIDTH 16.4 % (11.6-17.2); WHITE BLOOD COUNT 15.3 TH/MM3 (4.0-11.0)
[2017-06-27 10:48] LABS: ANION GAP 9 MEQ/L (5-15); AST (GOT) 9 U/L (15-37); BICARBONATE 27.4 MEQ/L (21.0-32.0); BLOOD UREA NITROGEN 19 MG/DL (7-18); CHLORIDE 105 MEQ/L (98-107); GLOMERULAR FILTRATION RATE 181 ML/MIN (>89); POTASSIUM 3.4 MEQ/L (3.5-5.1); SODIUM (NA) 141 MEQ/L (136-145)
[2017-06-27 10:51] LABS: ALKALINE PHOSPHATASE 92 U/L (45-117); ALT (GPT) 16 U/L (12-78); TOTAL BILIRUBIN ADULT 0.4 MG/DL (0.2-1.0)
--- NOTE | 2017-06-27 11:07 | HHI.PR ---
Subjective Remarks Follow-up for right lower extremity pain and weakness. The patient feels like his pain is worse today. He states that prior to admission he was on steroids and NSAIDs, and would like to continue those. He was on a steroid tapering down to 10 mg of prednisone. He feels like the Valium has helped some regarding anxiety, but hasn't really helped muscle spasms. He hasn't really felt like the tizanidine helps with the muscle spasms either. Objective Vitals Vital Signs Date Time Temp Pulse Resp B/P Pulse Ox O2 Delivery O2 Flow Rate FiO2 06/27/17 09:10 98.4 96 24 116/67 98 06/27/17 05:40 98.3 94 17 134/73 99 06/27/17 03:35 84 06/27/17 00:13 98.2 94 17 123/67 97 06/27/17 00:07 84 06/26/17 20:41 97.3 107 18 124/61 98 06/26/17 20:17 101 06/26/17 16:00 113 06/26/17 15:52 97.8 95 18 130/58 97 06/26/17 11:57 98.5 101 16 132/58 98 I/O 06/26/17 06/26/17 06/26/17 06/27/17 06/27/17 06/27/17 06:59 14:59 22:59 06:59 14:59 22:59 Intake Total 960 ml Output Total 850 ml Balance 110 ml Intake Oral 960 ml Output Urine Total 850 ml # Voids 3 Result Diagram: 06/27/17 0948 06/27/17 0948 Imaging Last Impressions Thoracic Spine MRI 06/26/17 0000 Signed Impressions: Service Date/Time: Monday, June 26, 2017 00:41 - CONCLUSION: 1. Tiny right paracentral protrusion at T10-11 without canal stenosis. 2. Small right paracentral protrusion at T11-12 without canal stenosis. 3. No compression fracture or spondylolisthesis. Justo Mayen MD Lumbar Spine MRI 06/26/17 0000 Signed Impressions: Service Date/Time: Monday, June 26, 2017 00:41 - CONCLUSION: 1. Minimal broad-based disc bulges at L3-4 and L4-5 levels without stenosis. 2. Mild broad-based protrusion more such the left at L5-S1. Justo Mayen MD Objective Remarks GENERAL: Well-developed well-nourished. In no acute distress. SKIN: Warm and dry. No lesions noted. HEENT: Normocephalic. Pupils equal and round. Mucous membranes pink and moist. CARDIOVASCULAR: Regular rate and rhythm. No murmur appreciated. RESPIRATORY: No accessory muscle use. Clear to auscultation. Breath sounds equal bilaterally. GASTROINTESTINAL: Abdomen soft, non-tender, nondistended. Bowel sounds x4. MUSCULOSKELETAL: Tenderness to palpation at the right SI joint. No clubbing or cyanosis. No edema. NEUROLOGICAL: Awake and alert. Moves upper and lower extremities spontaneously. Normal speech. Decreased strength and sensation in the right lower extremity below the knee. PSYCHIATRIC: Pleasant mood and affect; insight and judgment normal. A/P Problem List: (1) Intractable back pain ICD Code: M54.9 Status: Acute (2) Gait instability ICD Code: R26.81 Status: Acute (3) Leukocytosis ICD Code: D72.829 Status: Acute Assessment and Plan 21-year-old male with PMH of Asthma and recent admission for right sciatic pain who presented with complaints of continued severe right sided sciatic pain Intractable Back Pain: recent admit 06/05-06/09/17 for similar complaints following fall while skateboarding. Presented complaining of persistent pain. Reviewed: On previous admission patient had MRI of the entire spine and right hip. Spinal MRI showed tiny right paracentral protrusion at T10-11 and T11-12 w / no canal stenosis, minimal broad based disc bulges at L3-4 and L4-5 without stenosis. Hip MRI showed no evidence of occult fracture, minimal edema in the subcutaneous tissue right hip most prominent in the greater trochanteric bursa, no pathologic joint effusion. Patient had repeat thoracic and lumbar spine MRI in the ED with no acute changes from previous. -The patient has been treated with NSAIDs, steroids, gabapentin, opiates, muscle relaxers. The patient elected to avoid opiates. -Previously evaluated by neurosurgery who recommended no intervention -Gabapentin increased to 400 mg 3 times daily. Consider increasing dose tomorrow. -Patient reports his pain is mostly from intermittent muscle spasms. Motor is scheduled Valium. Change tizanidine to Soma. -Lidoderm patch -Change steroids to IV for now -Resume NSAIDs with GI protection -Monitor on telemetry. Right lower extremity weakness: Imaging as above. Consulted neurology, D/W Dr. Thomas, symptoms seem related to right lumbosacral plexus injury, would benefit from an EMG, symptoms will probably take a few months to heal. Discussed with radiology, no significant abnormalities regarding lumbosacral plexus on MRIs. -Rehabilitation medicine consulted for EMG. -Continue pain management as above -Continue PT Gait Instability: secondary to above, imaging w/ no clear etiology. Continue daily PT. Case management consulted to assist with continued outpatient PT at discharge. Leukocytosis: WBC 13.1, afebrile, likely secondary to steroid therapy. Monitor. DVT Prophylaxis: SCD/Teds. Addendum 1640 patient was noted by RN to have areas of erythema on his legs. Upon reassessment, the patient does have 2 small draining abscesses. One on the right medial thigh, and one on the left lateral leg. Patient denies any problems with abscesses before. The areas are actively draining scant purulent material so no need for I&D at this time. Collect wound culture. Bactrim and Keflex. Discharge Planning Follow-up EMG. Likely discharge planning 12 days when symptoms better, discussed with the patient. Case management to assist with [facility] nursing and outpatient PT. Avelino Faust Jun 27, 2017 11:06
[2017-06-27] MEDS: NAPROXEN 500 MG TAB PO SCH ×2 (12:00→22:05)
[2017-06-27] MEDS: FAMOTIDINE 20 MG TAB PO SCH ×2 (12:32→22:05)
[2017-06-27] MEDS: methylPREDNISolone SOD SUCC 40 MG/1 ML VIAL IV PUSH SCH ×2 (12:32→22:05)
[2017-06-27] MEDS ORDERED: POTASSIUM CHLORIDE 20 MEQ CONTROLLED RELEASE TAB PO ONE (12:45)
[2017-06-27] MEDS: CARISOPRODOL 350 MG TAB PO PRN (17:55)
[2017-06-27] MEDS: CEPHALEXIN MONOHYDRATE 500 MG CAP PO SCH (22:05)
[2017-06-27] MEDS: SULFAMETHOXAZOLE-TRIMETHOPRIM DS 800-160 MG TAB PO SCH (22:05)
[2017-06-28] VITALS (10 sets, daily range): BP systolic 114–130; BP diastolic 58–66; PULSE 75–110; RESP 17–20; TEMP 97.4–98.5; O2SAT 97–98
[2017-06-28] MEDS: CEPHALEXIN MONOHYDRATE 500 MG CAP PO SCH ×3 (06:08→21:03)
[2017-06-28] MEDS: REMOVE OLD LIDOCAINE PATCH T-DERMAL SCH (09:00)
[2017-06-28] MEDS: FAMOTIDINE 20 MG TAB PO SCH ×2 (09:17→21:03)
[2017-06-28] MEDS: methylPREDNISolone SOD SUCC 40 MG/1 ML VIAL IV PUSH SCH ×2 (09:18→21:03)
[2017-06-28] MEDS: DIAZEPAM 2 MG TAB PO SCH ×2 (09:18→21:03)
[2017-06-28] MEDS: GABAPENTIN 400 MG CAP PO SCH ×2 (09:18→12:41)
[2017-06-28] MEDS: NAPROXEN 500 MG TAB PO SCH (09:18)
[2017-06-28] MEDS: SODIUM CHLORIDE 0.9% FLUSH 10 ML FLUSH IV FLUSH SCH ×2 (09:18→21:04)
[2017-06-28] MEDS: SULFAMETHOXAZOLE-TRIMETHOPRIM DS 800-160 MG TAB PO SCH ×2 (09:18→21:03)
[2017-06-28] MEDS: REMOVE OLD PATCH T-DERMAL SCH (09:30)
--- NOTE | 2017-06-28 09:37 | HHI.PR ---
Subjective Remarks Follow up for back pain, RLE weakness, muscle spasms. The patient reports continue lower back pain with radiation down the right buttocks and thigh, associated with severe muscle spasms and weakness. He states the IV steroids and Soma are definitely helping. He has been sitting up on the side of bed and stabilizing balance with a walker, still unable to stand or ambulate. He does not feel ready for discharge. Objective Vitals Vital Signs Date Time Temp Pulse Resp B/P Pulse Ox O2 Delivery O2 Flow Rate FiO2 06/28/17 04:38 97.6 78 18 126/63 98 06/28/17 04:12 93 06/28/17 00:33 75 06/28/17 00:23 97.9 77 17 126/65 97 06/27/17 23:05 12 06/27/17 20:22 106 06/27/17 19:18 98.7 116 18 125/59 98 06/27/17 18:12 102 06/27/17 16:26 98.1 125 16 114/72 97 06/27/17 12:11 98.3 98 16 134/64 96 06/27/17 12:00 111 I/O 06/27/17 06/27/17 06/27/17 06/28/17 06/28/17 06/28/17 06:59 14:59 22:59 06:59 14:59 22:59 Intake Total 960 ml Output Total 1475 ml Balance -515 ml Intake Oral 960 ml Output Urine Total 1475 ml # Voids 2 # Bowel Movements 1 Result Diagram: 06/27/17 0948 06/27/17 0948 Imaging Last Impressions Thoracic Spine MRI 06/26/17 0000 Signed Impressions: Service Date/Time: Monday, June 26, 2017 00:41 - CONCLUSION: 1. Tiny right paracentral protrusion at T10-11 without canal stenosis. 2. Small right paracentral protrusion at T11-12 without canal stenosis. 3. No compression fracture or spondylolisthesis. Justo Mayen MD Lumbar Spine MRI 06/26/17 0000 Signed Impressions: Service Date/Time: Monday, June 26, 2017 00:41 - CONCLUSION: 1. Minimal broad-based disc bulges at L3-4 and L4-5 levels without stenosis. 2. Mild broad-based protrusion more such the left at L5-S1. Justo Mayen MD Objective Remarks GENERAL: Well-nourished, well-developed young male patient in NAD. Sitting upright on side of bed. SKIN: Warm and dry. Right medial thigh and left lateral leg with 2 small draining abscess and surrounding mild erythema. HEENT: Normocephalic. Atraumatic. Pupils equal and round. Mucous membranes pink and moist. CARDIOVASCULAR: Regular rate and rhythm. S1, S2 noted. No murmur appreciated. RESPIRATORY: No accessory muscle use. Clear to auscultation. Breath sounds equal bilaterally. GASTROINTESTINAL: Abdomen soft, non-tender, nondistended. Normoactive bowel sounds x4. MUSCULOSKELETAL: No obvious deformities. Extremities without clubbing, cyanosis , or edema. Right lumbar paraspinous and SI joint tenderness to palpation. NEUROLOGICAL: Awake and alert. No obvious cranial nerve deficits. Motor grossly within normal limits. 5/5 strength RUE/LUE. 4/5 strength LLE, 3/5 strength RLE. Normal speech. PSYCHIATRIC: Appropriate mood and affect; insight and judgment normal. Medications and IVs Current Medications Medications (Trade) Dose Ordered Sig/Salvador Route Start Time Stop Time Status Last Admin (NS Flush) 2 ml UNSCH PRN IV FLUSH 06/26/17 03:15 (NS Flush) 2 ml BID IV FLUSH 06/26/17 09:00 06/28/17 09:18 (Zofran Inj) 4 mg Q6H PRN IVP 06/26/17 03:15 (Tylenol) 650 mg Q6H PRN PO 06/26/17 03:15 06/26/17 16:25 (Milk Of Magnesia Liq) 30 ml Q12H PRN PO 06/26/17 03:15 (Senokot) 17.2 mg Q12H PRN PO 06/26/17 03:15 (Dulcolax Supp) 10 mg DAILY PRN RECTAL 06/26/17 03:15 (Lactulose Liq) 30 ml DAILY PRN PO 06/26/17 03:15 (Lidoderm 5% Patch.12 Hr) 1 patch DAILY T-DERMAL 06/26/17 09:00 06/27/17 16:31 Miscellaneous Information 1 Q24H T-DERMAL 06/26/17 09:00 06/28/17 09:00 (Neurontin) 400 mg TID PO 06/26/17 13:00 06/28/17 09:18 (Valium) 2 mg Q12HR PO 06/26/17 12:30 06/28/17 09:18 (SoluMEDROL INJ) 40 mg Q12HR IV PUSH 06/27/17 12:00 06/28/17 09:18 (Naprosyn) 500 mg Q12HR PO 06/27/17 12:00 06/28/17 09:18 (Pepcid) 20 mg BID PO 06/27/17 12:00 06/28/17 09:17 (Soma) 350 mg Q8H PRN PO 06/27/17 11:00 06/27/17 17:55 (Bactrim Ds 800-160 Mg) 1 tab Q12HR PO 06/27/17 21:00 06/28/17 09:18 (Keflex) 500 mg Q8HR PO 06/27/17 22:00 06/28/17 06:08 A/P Problem List: (1) Intractable back pain ICD Code: M54.9 Status: Acute (2) Gait instability ICD Code: R26.81 Status: Acute (3) Leukocytosis ICD Code: D72.829 Status: Acute Assessment and Plan 21-year-old male with PMH of Asthma and recent admission for right sciatic pain who presented with complaints of continued severe right sided sciatic pain Intractable Back Pain: recent admit 06/05-06/09/17 for similar complaints following fall while skateboarding. Presented complaining of persistent pain. Reviewed: On previous admission patient had MRI of the entire spine and right hip. Spinal MRI showed tiny right paracentral protrusion at T10-11 and T11-12 w / no canal stenosis, minimal broad based disc bulges at L3-4 and L4-5 without stenosis. Hip MRI showed no evidence of occult fracture, minimal edema in the subcutaneous tissue right hip most prominent in the greater trochanteric bursa, no pathologic joint effusion. Patient had repeat thoracic and lumbar spine MRI in the ED with no acute changes from previous. -Has been treated with NSAIDs, steroids, gabapentin, opiates, muscle relaxers. The patient elected to avoid opiates. -Previously evaluated by neurosurgery who recommended no surgical intervention -Gabapentin increased to 400 mg 3 times daily. Consider increasing dose tomorrow. -Patient reports his pain is mostly from intermittent muscle spasms. Continue scheduled Valium. Changed tizanidine to Soma, symptoms improving on Soma. -Continue Lidoderm patch daily -Continue steroids with IV Solumedrol 40mg bid -Resume NSAIDs with GI protection -Monitor on telemetry. -Continue PT Right lower extremity weakness: Imaging as above. Consulted neurology, D/W Dr. Thomas, symptoms seem related to right lumbosacral plexus injury, would benefit from an EMG, symptoms will probably take a few months to heal. Discussed with radiology, no significant abnormalities regarding lumbosacral plexus on MRIs. -Rehabilitation medicine consulted for EMG. -Continue pain management as above -Continue PT Gait Instability: secondary to above, imaging w/ no clear etiology. Continue daily PT. Case management consulted to assist with continued outpatient PT at discharge. Leukocytosis: WBC 13.1, afebrile, likely secondary to steroid therapy. Monitor. Cellulitis/Abscesses: mild. Actively draining, no need for I&D. Started on Bactrim/Keflex. Monitor wound culture. DVT Prophylaxis: SCD/Teds. Discharge Planning Not yet ready for discharge. Admit to inpatient for intractable back pain, requiring IV steroids. Patient still unable to ambulate. Davida Martinez PA-C Jun 28, 2017 9:36 am
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
[2017-06-28] MEDS: CARISOPRODOL 350 MG TAB PO PRN ×2 (10:25→23:17)
[2017-06-28] MEDS: LIDOCAINE HCL 5% PATCH T-DERMAL SCH (10:26)
--- NOTE | 2017-06-28 13:24 | PD.HHIRPR ---
Assessment/Plan Diagnosis/Problem List: (1) Sciatica of right side Status: Acute [facility] Luke Quiles M.D. [address], [address] [place] [address] Test Date: 06/28/2017 Patient: Christie Awan : 1995 Physician: Sex: Male Ref Phys: Patient Complaints: Pain and weakness in the leg. Patient History / Exam: Christie Adames is a 21-year-old zyawe-pbes-fwwlujwm male who presented to the [place] emergency department 06/26/17 with right lower extremity pain. Fall from a skateboard about 3 weeks ago with significant right buttock and right lower extremity pain. MRI of the thoracic spine shows small paracentral protrusion T10-T11, T11-T12 without canal stenosis. MRI the lumbar spine showed minimal disc bulges L3-L4 and L4-L5 without canal stenosis. Mild broad-based disc protrusion toward the left at L5-L1 with no canal stenosis was also found. He was treated with Decadron/Toradol and morphine. He was discharged home 06/09/17. Came back due to pain. Repeat thoracic and lumbar MRI 06/26/17 showed changes as noted above stable. He was treated with steroid/ gabapentin and Soma. Neurology consult notes possible right lumbosacral sacral plexopathy. Family History Mother: Alive, healthy Social History Prior to admission patient lived in [place], [place] with a roommate. At discharge he will be staying with his mother who lives in one-story home with 4 steps to enter PE: General: No acute distress Respiratory: Lungs CTA, Non-labored respirations, BS equal Gastrointestinal: Positive Bowel Sounds, Non-Distended Cardiovascular: Normal rate, Regular Rhythm Musculoskeletal: FUAROM in BUE. Limited in the LE due to pain. Psychiatric: Cooperative, Appropriate mood & affect Orientation: oriented to Self, oriented to Place, oriented to Situation Neurologic: Pupils (PERRLA), EOM (Intact), Facial Symmetry (Symmetric), Speech (Clear) Motor: Right Upper Extremity (5/5), Left Upper Extremity (5/5), Right Lower Extremity (testing limited due to pain but hip extension appears to be 3/5; ankle plantarflexion 3/5; dorsiflexion 3/5, plantar flexion was 1-2/5), Left Lower Extremity (4-5/5) Sensory Impaired to light touch in the right lateral lower leg and foot medial and laterally, above the knee was WNL. Clonus: Negative NCV Findings: Evaluation of the Left Peroneal Motor, the Right Peroneal Motor, and the Right Tibial Motor nerves showed prolonged distal onset latency (L6.9, R7.2, R6.6 ms) . The Left Sural Anti Sensory and the Right Sural Anti Sensory nerves showed prolonged distal peak latency (L4.3, R4.3 ms) and decreased conduction velocity (Calf-Lat Mall, L33, R33 m/s). All remaining nerves (as indicated in the following tables) were within normal limits. EMG Findings: Needle evaluation of the Right MedGastroc muscle showed diminished recruitment. The Right VastusMed muscle showed increased insertional activity. All remaining muscles (as indicated in the following table) showed no evidence of electrical instability. Impression: 1. Abnormal study. 2. 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 No evidence of denervation potentials on EMG. EMG showed some muscle spasm and decrease recruitment at times due to pain. Nerve Conduction Studies Anti Sensory Summary Table Site NR Peak (ms) Norm Peak (ms) P-T Amp (V) Norm P-T Amp Site1 Site2 Delta-P (ms) Dist (cm) Dwayne (m/s) Norm Dwayne (m/s) Left Sural Anti Sensory (Lat Mall) Calf 4.3 <4.0 17.7 >5.0 Calf Lat Mall 4.3 14.0 33 >35 Right Sural Anti Sensory (Lat Mall) Calf 4.3 <4.0 28.4 >5.0 Calf Lat Mall 4.3 14.0 33 >35 Motor Summary Table Site NR Onset (ms) Norm Onset (ms) O-P Amp (mV) Norm O-P Amp Site1 Site2 Delta- 0 (ms) Dist (cm) Dwayne (m/s) Norm Dwayne (m/s) Left Peroneal Motor (Ext Dig Brev) Ankle 6.9 <6.1 3.4 >2.5 B Fib Ankle 8.6 33.0 38 >38 B Fib 15.5 3.1 Right Peroneal Motor (Ext Dig Brev) Ankle 7.2 <6.1 3.2 >2.5 B Fib Ankle 9.1 37.0 41 >38 B Fib 16.3 5.2 Left Tibial Motor (Abd Andrade Brev) Ankle 7.0 <6.1 4.7 >3.0 Right Tibial Motor (Abd Andrade Brev) Ankle 7.5 <6.1 8.7 >3.0 EMG Side Muscle Nerve Root Ins Act Fibs Psw Amp Dur Poly Recrt Int Pat Comment Right EHL Peron Nerve L5-S1 Nml Nml Nml Nml Nml 0 Nml Nml Right Peroneus Long Sup Br Peron L5-S1 Nml Nml Nml Nml Nml 0 Nml Nml Right MedGastroc Tibial S1-2 Nml Nml Nml Nml Nml 0 Reduced Nml pain Right AntTibialis Dp Br Peron L4-5 Nml Nml Nml Nml Nml 0 Nml Nml Right VastusMed Femoral L2-4 Incr Nml Nml Nml Nml 0 Nml Nml Luke Foss MD Jun 28, 2017 13:24
[2017-06-28] MEDS ORDERED: DIAZEPAM 2 MG TAB PO ONE (15:00)
[2017-06-28] MEDS: GABAPENTIN 300 MG CAP PO SCH (17:41)
[2017-06-28] MEDS: KETOROLAC TROMETHAMINE 30 MG/ML (IVP) VIAL IV PUSH SCH (17:41)
[2017-06-28] MEDS: SODIUM CHLORIDE 0.9% FLUSH 10 ML FLUSH IV FLUSH PRN ×2 (17:42→18:04)
[2017-06-28] MEDS ORDERED: ACETAMINOPHEN/HYDROcodone 325 MG/5 MG TAB PO PRN (18:00)
[2017-06-28] MEDS ORDERED: GABAPENTIN 400 MG CAP PO SCH (18:00)
[2017-06-28] MEDS: MORPHINE SULFATE 4 MG/ML INJ IV PRN (18:04)
[2017-06-28] MEDS: ACETAMINOPHEN/HYDROcodone 325 MG/7.5 MG TAB PO PRN (22:25)
[2017-06-29 02:35] VITALS: BP 142/60; PULSE 66; RESP 18; O2SAT 98
[2017-06-29] MEDS: KETOROLAC TROMETHAMINE 30 MG/ML (IVP) VIAL IV PUSH SCH ×5 (02:37→23:32)
[2017-06-29 03:57] VITALS: BP 120/64; PULSE 87; RESP 20; TEMP 98.5; O2SAT 99
[2017-06-29 06:44] VITALS: BP 131/61; PULSE 92; RESP 18; O2SAT 99
[2017-06-29] MEDS: CEPHALEXIN MONOHYDRATE 500 MG CAP PO SCH ×3 (06:45→21:46)
[2017-06-29 08:12] VITALS: BP 128/64; PULSE 83; RESP 21; TEMP 97.9; O2SAT 99
[2017-06-29] MEDS: REMOVE OLD PATCH T-DERMAL SCH (09:30)
[2017-06-29] MEDS: GABAPENTIN 300 MG CAP PO SCH ×3 (09:32→18:19)
[2017-06-29] MEDS: methylPREDNISolone SOD SUCC 40 MG/1 ML VIAL IV PUSH SCH ×2 (09:32→21:46)
[2017-06-29] MEDS: SULFAMETHOXAZOLE-TRIMETHOPRIM DS 800-160 MG TAB PO SCH ×2 (09:32→21:46)
[2017-06-29] MEDS: CARISOPRODOL 350 MG TAB PO PRN ×2 (09:32→18:31)
[2017-06-29] MEDS: DIAZEPAM 2 MG TAB PO SCH ×2 (09:32→21:46)
[2017-06-29] MEDS: FAMOTIDINE 20 MG TAB PO SCH ×2 (09:32→21:53)
[2017-06-29] MEDS: SODIUM CHLORIDE 0.9% FLUSH 10 ML FLUSH IV FLUSH SCH ×2 (09:33→21:46)
[2017-06-29] MEDS: LIDOCAINE HCL 5% PATCH T-DERMAL SCH (09:33)
[2017-06-29 12:13] LABS: AUTOMATED NEUTROPHIL # 12.8 TH/MM3 (1.8-7.7); EOSINOPHIL % 0.2 % (0.0-4.0); HEMATOCRIT 36.2 % (39.0-51.0); HEMO FLAGS DIFF FINAL; LYMPH % 9.4 % (9.0-44.0); LYMPHOCYTE # 1.4 TH/MM3 (1.0-4.8); MEAN CELL VOLUME 77.8 FL (80.0-100.0); MEAN CORPUSCULAR HEMOGLOBIN 25.8 PG (27.0-34.0); MEAN CORPUSCULAR HGB CONC 33.2 % (32.0-36.0); MONO % 5.4 % (0.0-8.0); PLATELET COUNT 305 TH/MM3 (150-450); RED BLOOD COUNT 4.66 MIL/MM3 (4.50-5.90); RED CELL DISTRIBUTION WIDTH 16.8 % (11.6-17.2); WHITE BLOOD COUNT 15.1 TH/MM3 (4.0-11.0)
--- NOTE | 2017-06-29 12:39 | HHI.PR ---
Subjective Remarks Follow up for back pain, weakness, muscle spasms. The patient reports after the nerve conduction study yesterday he had worsening right lower back pain and weakness. The pain was relieved with IV morphine and [place] yesterday, now improved. He still reports diffuse lumbar and RLE muscle spasms. He is ambulating only 1-2 steps with his walker but still feels very weak and unsteady on his feet. Denies any other medical complaints. Objective Vitals Vital Signs Date Time Temp Pulse Resp B/P Pulse Ox O2 Delivery O2 Flow Rate FiO2 06/29/17 08:12 97.9 83 21 128/64 99 06/29/17 06:44 92 18 131/61 99 06/29/17 03:57 98.5 87 20 120/64 99 06/29/17 03:40 18 06/29/17 02:35 66 18 142/60 98 06/29/17 01:01 18 06/28/17 23:38 18 06/28/17 23:14 97.4 104 18 127/60 97 06/28/17 20:24 98.5 103 20 130/58 98 06/28/17 16:12 97.8 110 19 124/61 98 I/O 06/28/17 06/28/17 06/28/17 06/29/17 06/29/17 06/29/17 07:00 15:00 23:00 07:00 15:00 23:00 Intake Total 960 ml Output Total 1100 ml Balance 960 ml -1100 ml Intake Oral 960 ml Output Urine Total 1100 ml # Voids 1 1 # Bowel Movements 1 1 Result Diagram: 06/29/17 0600 06/27/17 0948 Imaging Last Impressions Thoracic Spine MRI 06/26/17 0000 Signed Impressions: Service Date/Time: Monday, June 26, 2017 00:41 - CONCLUSION: 1. Tiny right paracentral protrusion at T10-11 without canal stenosis. 2. Small right paracentral protrusion at T11-12 without canal stenosis. 3. No compression fracture or spondylolisthesis. Justo Mayen MD Lumbar Spine MRI 06/26/17 0000 Signed Impressions: Service Date/Time: Monday, June 26, 2017 00:41 - CONCLUSION: 1. Minimal broad-based disc bulges at L3-4 and L4-5 levels without stenosis. 2. Mild broad-based protrusion more such the left at L5-S1. Justo Mayen MD Objective Remarks GENERAL: Well-nourished, well-developed young male patient in NAD. Sitting upright on side of bed. SKIN: Warm and dry. Right medial thigh and left lateral leg with 2 small draining abscess and surrounding minimal erythema; covered with dressing. HEENT: Normocephalic. Atraumatic. Pupils equal and round. Mucous membranes pink and moist. CARDIOVASCULAR: Regular rate and rhythm. S1, S2 noted. No murmur appreciated. RESPIRATORY: No accessory muscle use. Clear to auscultation. Breath sounds equal bilaterally. GASTROINTESTINAL: Abdomen soft, non-tender, nondistended. Normoactive bowel sounds x4. MUSCULOSKELETAL: No obvious deformities. Extremities without clubbing, cyanosis , or edema. Right lumbar paraspinous and SI joint tenderness to palpation. NEUROLOGICAL: Awake and alert. No obvious cranial nerve deficits. Motor grossly within normal limits. 5/5 strength RUE/LUE. 4/5 strength LLE, 3/5 strength RLE. Normal speech. PSYCHIATRIC: Appropriate mood and affect; insight and judgment normal. Medications and IVs Current Medications Medications (Trade) Dose Ordered Sig/Salvador Route Start Time Stop Time Status Last Admin (NS Flush) 2 ml UNSCH PRN IV FLUSH 06/26/17 03:15 06/28/17 18:04 (NS Flush) 2 ml BID IV FLUSH 06/26/17 09:00 06/29/17 09:33 (Zofran Inj) 4 mg Q6H PRN IVP 06/26/17 03:15 (Tylenol) 650 mg Q6H PRN PO 06/26/17 03:15 06/26/17 16:25 (Milk Of Magnesia Liq) 30 ml Q12H PRN PO 06/26/17 03:15 (Senokot) 17.2 mg Q12H PRN PO 06/26/17 03:15 (Dulcolax Supp) 10 mg DAILY PRN RECTAL 06/26/17 03:15 (Lactulose Liq) 30 ml DAILY PRN PO 06/26/17 03:15 (Valium) 2 mg Q12HR PO 06/26/17 12:30 06/29/17 09:32 (SoluMEDROL INJ) 40 mg Q12HR IV PUSH 06/27/17 12:00 06/29/17 09:32 (Pepcid) 20 mg BID PO 06/27/17 12:00 06/29/17 09:32 (Soma) 350 mg Q8H PRN PO 06/27/17 11:00 06/29/17 09:32 (Bactrim Ds 800-160 Mg) 1 tab Q12HR PO 06/27/17 21:00 06/29/17 09:32 (Keflex) 500 mg Q8HR PO 06/27/17 22:00 06/29/17 06:45 (Lidoderm 5% Patch.12 Hr) 1 patch DAILY T-DERMAL 06/28/17 09:30 06/29/17 09:33 Miscellaneous Information 1 Q24H T-DERMAL 06/28/17 09:30 06/29/17 09:30 (Toradol Inj) 15 mg Q6HR IV PUSH 06/28/17 18:00 07/03/17 17:59 06/29/17 06:46 ([place] 5-325 Mg) 1 tab Q4H PRN PO 06/28/17 18:00 ([place] 7.5-325 Mg) 1 tab Q4H PRN PO 06/28/17 18:00 06/28/17 22:25 (Morphine Inj) 4 mg Q3H PRN IV 06/28/17 18:00 06/28/17 18:04 (Neurontin) 600 mg TID PO 06/28/17 18:00 06/29/17 09:32 A/P Problem List: (1) Intractable back pain ICD Code: M54.9 Status: Acute (2) Gait instability ICD Code: R26.81 Status: Acute (3) Leukocytosis ICD Code: D72.829 Status: Acute Assessment and Plan 21-year-old male with PMH of Asthma and recent admission for right sciatic pain who presented with complaints of continued severe right sided sciatic pain Intractable Back Pain: recent admit 06/05-06/09/17 for similar complaints following fall while skateboarding. Presented complaining of persistent pain. Reviewed: On previous admission patient had MRI of the entire spine and right hip. Spinal MRI showed tiny right paracentral protrusion at T10-11 and T11-12 w / no canal stenosis, minimal broad based disc bulges at L3-4 and L4-5 without stenosis. Hip MRI showed no evidence of occult fracture, minimal edema in the subcutaneous tissue right hip most prominent in the greater trochanteric bursa, no pathologic joint effusion. Patient had repeat thoracic and lumbar spine MRI in the ED with no acute changes from previous. -Has been treated with NSAIDs, steroids, gabapentin, opiates, muscle relaxers. The patient elected to avoid opiates. -Previously evaluated by neurosurgery who recommended no surgical intervention -Gabapentin increased to 600 mg 3 times daily on 06/28 -Patient reports his pain is mostly from intermittent muscle spasms. Continue scheduled Valium. Changed tizanidine to Soma, symptoms improving on Soma. -Continue Lidoderm patch daily -Continue steroids with IV Solumedrol 40mg bid -Resume NSAIDs with GI protection -Monitor on telemetry. -Continue PT Right lower extremity weakness: Imaging as above. Consulted neurology, D/W Dr. Thomas, symptoms seem related to right lumbosacral plexus injury, would benefit from an EMG, symptoms will probably take a few months to heal. Discussed with radiology, no significant abnormalities regarding lumbosacral plexus on MRIs. 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 No evidence of denervation potentials on EMG. EMG showed some muscle spasm and decrease recruitment at times due to pain. -Continue pain management as above -Continue PT -Discussed with Dr. Thomas, NCV/EMG results does not correlate with symptoms, requests outpatient f/up with him in 1 week Gait Instability: secondary to above, imaging w/ no clear etiology. Continue daily PT. Case management consulted to assist with continued outpatient PT at discharge. Leukocytosis: WBC 13.1, afebrile, likely secondary to steroid therapy. Monitor. Cellulitis/Abscesses: mild. Actively draining, no need for I&D. Started on Bactrim/Keflex. Wound culture with MRSA. DVT Prophylaxis: SCD/Teds. Discharge Planning Not yet ready for discharge. Admit to inpatient for intractable back pain, requiring IV steroids and IV pain medication. Patient still unable to ambulate. PT recommends short term rehab vs SNF, however no insurance, likely needs daily PT until safe to go home. Davida Martinez PA-C Jun 29, 2017 12:39
[2017-06-29 12:49] VITALS: BP 121/61; PULSE 114; RESP 20; TEMP 97.4; O2SAT 98
[2017-06-29] MEDS: SODIUM CHLORIDE 0.9% FLUSH 10 ML FLUSH IV FLUSH PRN (13:00)
[2017-06-29 13:08] LABS: BICARBONATE 27.4 MEQ/L (21.0-32.0); POTASSIUM 4.1 MEQ/L (3.5-5.1)
[2017-06-29] MEDS: ACETAMINOPHEN/HYDROcodone 325 MG/7.5 MG TAB PO PRN ×2 (14:25→21:45)
[2017-06-29] MEDS: MORPHINE SULFATE 4 MG/ML INJ IV PRN ×2 (14:46→22:40)
[2017-06-29 20:13] VITALS: BP 126/71; PULSE 111; RESP 20; TEMP 97.3; O2SAT 98
[2017-06-30] VITALS: BP 130/62; PULSE 103; RESP 20; TEMP 97.7; O2SAT 98
[2017-06-30] MEDS: MORPHINE SULFATE 4 MG/ML INJ IV PRN ×6 (01:28→23:37)
[2017-06-30] MEDS: ACETAMINOPHEN/HYDROcodone 325 MG/7.5 MG TAB PO PRN ×5 (02:32→22:59)
[2017-06-30] MEDS: CARISOPRODOL 350 MG TAB PO PRN ×3 (02:32→18:33)
[2017-06-30 04:10] VITALS: BP 143/66; PULSE 95; RESP 21; TEMP 97.7; O2SAT 98
[2017-06-30] MEDS: KETOROLAC TROMETHAMINE 30 MG/ML (IVP) VIAL IV PUSH SCH ×4 (05:59→22:59)
[2017-06-30] MEDS: CEPHALEXIN MONOHYDRATE 500 MG CAP PO SCH ×3 (05:59→21:58)
[2017-06-30] MEDS: LIDOCAINE HCL 5% PATCH T-DERMAL SCH (07:36)
[2017-06-30] MEDS: GABAPENTIN 300 MG CAP PO SCH ×3 (07:37→18:34)
[2017-06-30] MEDS: methylPREDNISolone SOD SUCC 40 MG/1 ML VIAL IV PUSH SCH ×2 (07:37→21:58)
[2017-06-30] MEDS: DIAZEPAM 2 MG TAB PO SCH (07:38)
[2017-06-30] MEDS: SODIUM CHLORIDE 0.9% FLUSH 10 ML FLUSH IV FLUSH SCH ×2 (07:38→21:59)
[2017-06-30] MEDS: SULFAMETHOXAZOLE-TRIMETHOPRIM DS 800-160 MG TAB PO SCH ×2 (07:38→21:58)
[2017-06-30] MEDS: FAMOTIDINE 20 MG TAB PO SCH ×2 (07:38→21:58)
[2017-06-30] MEDS: REMOVE OLD PATCH T-DERMAL SCH (07:46)
[2017-06-30 08:25] VITALS: BP 128/59; PULSE 76; RESP 20; TEMP 97.7; O2SAT 98
[2017-06-30 12:00] VITALS: BP 126/58; PULSE 97; RESP 20; TEMP 98.1; O2SAT 97
--- NOTE | 2017-06-30 14:01 | HHI.PR ---
Subjective Remarks Follow up for back pain, weakness, muscle spasms. Mr. Cash is currently resting in bed and doing well. However, he has episodic spasm of his right leg. He continues to have significant weakness of his right leg as well. No fever, chills. Objective Vitals Vital Signs Date Time Temp Pulse Resp B/P Pulse Ox O2 Delivery O2 Flow Rate FiO2 06/30/17 12:00 98.1 97 20 126/58 97 06/30/17 08:25 97.7 76 20 128/59 98 06/30/17 04:10 97.7 95 21 143/66 98 06/30/17 00:00 97.7 103 20 130/62 98 06/29/17 20:13 97.3 111 20 126/71 98 I/O 06/29/17 06/29/17 06/29/17 06/30/17 06/30/17 06/30/17 06:59 14:59 22:59 06:59 14:59 22:59 Output Total 1300 ml Balance -1300 ml Output Urine Total 1300 ml # Voids 1 2 # Bowel Movements 1 2 Result Diagram: 06/29/17 0600 06/29/17 1128 Imaging Last Impressions Thoracic Spine MRI 06/26/17 0000 Signed Impressions: Service Date/Time: Monday, June 26, 2017 00:41 - CONCLUSION: 1. Tiny right paracentral protrusion at T10-11 without canal stenosis. 2. Small right paracentral protrusion at T11-12 without canal stenosis. 3. No compression fracture or spondylolisthesis. Justo Mayen MD Lumbar Spine MRI 06/26/17 0000 Signed Impressions: Service Date/Time: Monday, June 26, 2017 00:41 - CONCLUSION: 1. Minimal broad-based disc bulges at L3-4 and L4-5 levels without stenosis. 2. Mild broad-based protrusion more such the left at L5-S1. Justo Mayen MD Objective Remarks GENERAL: AOX3 NAD. SKIN: Warm and dry. HEAD: Normocephalic. EYES: No scleral icterus. No injection or drainage. NECK: Supple, trachea midline. No JVD or lymphadenopathy. CARDIOVASCULAR: Regular rate and rhythm without murmurs, gallops, or rubs. RESPIRATORY: Breath sounds equal bilaterally. No accessory muscle use. GASTROINTESTINAL: Abdomen soft, non-tender, nondistended. MUSCULOSKELETAL: No cyanosis, or edema. Unable to move right leg - strength 0/ 5. Left leg 5/5 BACK: Nontender without obvious deformity. No CVA tenderness. A/P Problem List: (1) Intractable back pain ICD Code: M54.9 Status: Acute (2) Gait instability ICD Code: R26.81 Status: Acute (3) Leukocytosis ICD Code: D72.829 Status: Acute Assessment and Plan 21-year-old male with PMH of Asthma and recent admission for right sciatic pain who presented with complaints of continued severe right sided sciatic pain Intractable Back Pain: recent admit 06/05-06/09/17 for similar complaints following fall while skateboarding. Presented complaining of persistent pain. Reviewed: On previous admission patient had MRI of the entire spine and right hip. Spinal MRI showed tiny right paracentral protrusion at T10-11 and T11-12 w / no canal stenosis, minimal broad based disc bulges at L3-4 and L4-5 without stenosis. Hip MRI showed no evidence of occult fracture, minimal edema in the subcutaneous tissue right hip most prominent in the greater trochanteric bursa, no pathologic joint effusion. Patient had repeat thoracic and lumbar spine MRI in the ED with no acute changes from previous. -Has been treated with NSAIDs, steroids, gabapentin, opiates, muscle relaxers. The patient elected to avoid opiates. -Previously evaluated by neurosurgery who recommended no surgical intervention -Gabapentin increased to 600 mg 3 times daily on 06/28 -Patient reports his pain is mostly from intermittent muscle spasms. Continue scheduled Valium. Changed tizanidine to Soma, symptoms improving on Soma. -Continue Lidoderm patch daily -Continue steroids with IV Solumedrol 40mg bid -Resume NSAIDs with GI protection -Continue PT Right lower extremity weakness: Imaging as above. Consulted neurology, D/W Dr. Thomas, symptoms seem related to right lumbosacral plexus injury, would benefit from an EMG, symptoms will probably take a few months to heal. Discussed with radiology, no significant abnormalities regarding lumbosacral plexus on MRIs. 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 No evidence of denervation potentials on EMG. EMG showed some muscle spasm and decrease recruitment at times due to pain. -Continue pain management as above -Continue PT -Discussed with Dr. Thomas, NCV/EMG results does not correlate with symptoms, requests outpatient f/up with him in 1 week Gait Instability: secondary to above, imaging w/ no clear etiology. Continue daily PT. Case management consulted to assist with continued outpatient PT at discharge. Leukocytosis: WBC 13.1, afebrile, likely secondary to steroid therapy. Monitor. Cellulitis/Abscesses: mild. Actively draining, no need for I&D. Started on Bactrim/Keflex. Wound culture with MRSA. Anxiety - Will discontinue Diazepam and start Clonazepam 1mg Q8hrs. Full code. DVT Prophylaxis: SCD/Teds. Cynthia Stockton DO Jun 30, 2017 14:01
[2017-06-30] MEDS: clonazePAM 1 MG TAB PO SCH ×2 (14:55→21:58)
[2017-06-30 20:44] VITALS: BP 144/80; PULSE 98; RESP 22; TEMP 97.8; O2SAT 97
[2017-07-01] VITALS: BP 136/78; PULSE 78; RESP 20; TEMP 97.8; O2SAT 98
[2017-07-01] MEDS: CARISOPRODOL 350 MG TAB PO PRN ×4 (02:30→21:18)
[2017-07-01 05:02] VITALS: BP 128/62; PULSE 76; RESP 18; TEMP 97.6; O2SAT 99
[2017-07-01] MEDS: CEPHALEXIN MONOHYDRATE 500 MG CAP PO SCH ×3 (05:33→21:19)
[2017-07-01] MEDS: KETOROLAC TROMETHAMINE 30 MG/ML (IVP) VIAL IV PUSH SCH ×4 (05:33→23:47)
[2017-07-01] MEDS: clonazePAM 1 MG TAB PO SCH (05:33)
[2017-07-01] MEDS: ACETAMINOPHEN/HYDROcodone 325 MG/7.5 MG TAB PO PRN ×2 (05:34→10:09)
[2017-07-01 08:00] VITALS: BP 143/76; PULSE 89; RESP 16; TEMP 97.6; O2SAT 98
[2017-07-01] MEDS: MORPHINE SULFATE 4 MG/ML INJ IV PRN ×5 (08:11→21:08)
[2017-07-01] MEDS: GABAPENTIN 300 MG CAP PO SCH ×3 (08:13→17:38)
[2017-07-01] MEDS: methylPREDNISolone SOD SUCC 40 MG/1 ML VIAL IV PUSH SCH ×2 (08:14→21:14)
[2017-07-01] MEDS: SODIUM CHLORIDE 0.9% FLUSH 10 ML FLUSH IV FLUSH SCH ×2 (08:14→21:21)
[2017-07-01] MEDS: FAMOTIDINE 20 MG TAB PO SCH ×2 (08:14→21:15)
[2017-07-01] MEDS: SULFAMETHOXAZOLE-TRIMETHOPRIM DS 800-160 MG TAB PO SCH ×2 (08:14→21:15)
[2017-07-01] MEDS: REMOVE OLD PATCH T-DERMAL SCH (08:15)
[2017-07-01] MEDS: LIDOCAINE HCL 5% PATCH T-DERMAL SCH (08:15)
--- NOTE | 2017-07-01 09:41 | HHI.PR ---
Subjective Remarks Follow up for back pain, weakness, muscle spasms. Patient continues to have right leg weakness and tremors. No fever, chills. Says he does not have a place to go to once he is discharged. Also, he is going to talk to his relatives regarding place to stay as well as insurance. Objective Vitals Vital Signs Date Time Temp Pulse Resp B/P Pulse Ox O2 Delivery O2 Flow Rate FiO2 07/01/17 08:00 97.6 89 16 143/76 98 07/01/17 05:02 97.6 76 18 128/62 99 07/01/17 00:00 97.8 78 20 136/78 98 06/30/17 20:44 97.8 98 22 144/80 97 06/30/17 12:00 98.1 97 20 126/58 97 I/O 06/30/17 06/30/17 06/30/17 07/01/17 07/01/17 07/01/17 06:59 14:59 22:59 06:59 14:59 22:59 Intake Total 720 ml Output Total 500 ml Balance -500 ml 720 ml Intake Oral 720 ml Output Urine Total 500 ml # Voids 2 3 # Bowel Movements 2 0 Result Diagram: 06/29/17 0600 06/29/17 1128 Imaging Last Impressions Thoracic Spine MRI 06/26/17 0000 Signed Impressions: Service Date/Time: Monday, June 26, 2017 00:41 - CONCLUSION: 1. Tiny right paracentral protrusion at T10-11 without canal stenosis. 2. Small right paracentral protrusion at T11-12 without canal stenosis. 3. No compression fracture or spondylolisthesis. Justo Mayen MD Lumbar Spine MRI 06/26/17 0000 Signed Impressions: Service Date/Time: Monday, June 26, 2017 00:41 - CONCLUSION: 1. Minimal broad-based disc bulges at L3-4 and L4-5 levels without stenosis. 2. Mild broad-based protrusion more such the left at L5-S1. Justo Mayen MD Objective Remarks GENERAL: AOX3 NAD. SKIN: Warm and dry. HEAD: Normocephalic. EYES: No scleral icterus. No injection or drainage. NECK: Supple, trachea midline. No JVD or lymphadenopathy. CARDIOVASCULAR: Regular rate and rhythm without murmurs, gallops, or rubs. RESPIRATORY: Breath sounds equal bilaterally. No accessory muscle use. GASTROINTESTINAL: Abdomen soft, non-tender, nondistended. MUSCULOSKELETAL: No cyanosis, or edema. Unable to move right leg - strength 0/ 5. Left leg 5/5 BACK: Nontender without obvious deformity. No CVA tenderness. Procedures None. A/P Problem List: (1) Intractable back pain ICD Code: M54.9 Status: Acute (2) Gait instability ICD Code: R26.81 Status: Acute (3) Leukocytosis ICD Code: D72.829 Status: Acute Assessment and Plan 21-year-old male with PMH of Asthma and recent admission for right sciatic pain who presented with complaints of continued severe right sided sciatic pain Intractable Back Pain: recent admit 06/05-06/09/17 for similar complaints following fall while skateboarding. Presented complaining of persistent pain. Reviewed: On previous admission patient had MRI of the entire spine and right hip. Spinal MRI showed tiny right paracentral protrusion at T10-11 and T11-12 w / no canal stenosis, minimal broad based disc bulges at L3-4 and L4-5 without stenosis. Hip MRI showed no evidence of occult fracture, minimal edema in the subcutaneous tissue right hip most prominent in the greater trochanteric bursa, no pathologic joint effusion. Patient had repeat thoracic and lumbar spine MRI in the ED with no acute changes from previous. -Has been treated with NSAIDs, steroids, gabapentin, opiates, muscle relaxers. -Previously evaluated by neurosurgery who recommended no surgical intervention -Gabapentin increased to 600 mg 3 times daily on 06/28 -Patient reports his pain is mostly from intermittent muscle spasms. Continue scheduled Valium. Changed tizanidine to Soma, symptoms improving on Soma. -Continue Lidoderm patch daily -Continue steroids with IV Solumedrol 40mg bid -Resume NSAIDs with GI protection -Continue PT - Discussed with Dr. Garay today. We will consult Dr. Garay. Repeat Hip MRI ordered. Brain MRI not ordered but maybe considered in the coming days. Right lower extremity weakness: Imaging as above. Consulted neurology, D/W Dr. Thomas, symptoms seem related to right lumbosacral plexus injury, would benefit from an EMG, symptoms will probably take a few months to heal. Discussed with radiology, no significant abnormalities regarding lumbosacral plexus on MRIs. 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 No evidence of denervation potentials on EMG. EMG showed some muscle spasm and decrease recruitment at times due to pain. - Neurology consulted --> NCV/EMG results does not correlate with symptoms, requests outpatient f/up with him in 1 week Gait Instability: secondary to above, imaging w/ no clear etiology. Continue daily PT. Case management consulted to assist with continued outpatient PT at discharge. Leukocytosis: WBC 13.1, afebrile, likely secondary to steroid therapy. Cellulitis/Abscesses: mild. Actively draining, no need for I&D. Continue Bactrim /Keflex. Wound culture with MRSA. Anxiety - continue Clonazepam 1mg Q8hrs. Full code. DVT Prophylaxis: SCD/Teds. Cynthia Stockton DO Jul 01, 2017 09:41
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
[2017-07-01 12:12] VITALS: BP 122/69; PULSE 97; RESP 16; TEMP 97.5; O2SAT 97
[2017-07-01] MEDS: clonazePAM 1 MG TAB PO PRN ×2 (13:11→21:18)
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
[2017-07-01 20:00] VITALS: BP 130/63; PULSE 94; RESP 18; TEMP 98.2; O2SAT 97
[2017-07-02] VITALS: BP 123/59; PULSE 80; RESP 18; TEMP 97.7; O2SAT 98
[2017-07-02] MEDS: MORPHINE SULFATE 4 MG/ML INJ IV PRN ×8 (01:00→22:22)
[2017-07-02 04:00] VITALS: BP 132/63; PULSE 66; RESP 18; TEMP 98; O2SAT 98
[2017-07-02] MEDS: KETOROLAC TROMETHAMINE 30 MG/ML (IVP) VIAL IV PUSH SCH ×4 (05:26→23:43)
[2017-07-02] MEDS: CEPHALEXIN MONOHYDRATE 500 MG CAP PO SCH ×3 (05:27→21:10)
[2017-07-02 08:00] VITALS: BP 133/71; PULSE 70; RESP 16; TEMP 97.5; O2SAT 98
[2017-07-02] MEDS: methylPREDNISolone SOD SUCC 40 MG/1 ML VIAL IV PUSH SCH (09:12)
[2017-07-02] MEDS: SODIUM CHLORIDE 0.9% FLUSH 10 ML FLUSH IV FLUSH SCH ×2 (09:12→21:13)
[2017-07-02] MEDS: LIDOCAINE HCL 5% PATCH T-DERMAL SCH (09:13)
[2017-07-02] MEDS: SULFAMETHOXAZOLE-TRIMETHOPRIM DS 800-160 MG TAB PO SCH ×2 (09:13→21:10)
[2017-07-02] MEDS: GABAPENTIN 300 MG CAP PO SCH ×3 (09:13→18:04)
[2017-07-02] MEDS: FAMOTIDINE 20 MG TAB PO SCH ×2 (09:13→21:10)
[2017-07-02] MEDS: REMOVE OLD PATCH T-DERMAL SCH (09:13)
[2017-07-02] MEDS: CARISOPRODOL 350 MG TAB PO PRN ×3 (10:52→21:10)
[2017-07-02] MEDS: clonazePAM 1 MG TAB PO PRN ×3 (10:52→21:10)
--- NOTE | 2017-07-02 11:08 | HHI.PR ---
Subjective Remarks Follow up for back pain, weakness, muscle spasms. Patient reports persistent right hip pain and inability to move his right leg. No chest pain, shortness of breath, fever or chills. Objective Vitals Vital Signs Date Time Temp Pulse Resp B/P Pulse Ox O2 Delivery O2 Flow Rate FiO2 07/02/17 08:00 97.5 70 16 133/71 98 07/02/17 04:00 98.0 66 18 132/63 98 07/02/17 00:00 97.7 80 18 123/59 98 07/01/17 20:00 98.2 94 18 130/63 97 07/01/17 12:12 97.5 97 16 122/69 97 I/O 07/01/17 07/01/17 07/01/17 07/02/17 07/02/17 07/02/17 06:59 14:59 22:59 06:59 14:59 22:59 Intake Total 32 ml Output Total 475 ml Balance -475 ml 32 ml Intake Oral 32 ml Output Urine Total 475 ml # Voids 3 Result Diagram: 06/29/17 0600 06/29/17 1128 Imaging Last Impressions Hip MRI 07/01/17 0000 Signed Impressions: Service Date/Time: June 10:39 - CONCLUSION: 1. Significant edema around the right sacroiliac joint correlate for inflammatory arthritis. 2. Soft tissue edema overlying the hip. Mild edema at the origin of the vastus lateralis muscle Quinton Marte MD Brain MRI 07/01/17 0000 Signed Impressions: Service Date/Time: June 10:39 - CONCLUSION: Normal examination. Stephen Best Jr., MD Thoracic Spine MRI 06/26/17 0000 Signed Impressions: Service Date/Time: Monday, June 26, 2017 00:41 - CONCLUSION: 1. Tiny right paracentral protrusion at T10-11 without canal stenosis. 2. Small right paracentral protrusion at T11-12 without canal stenosis. 3. No compression fracture or spondylolisthesis. Justo Mayen MD Lumbar Spine MRI 06/26/17 0000 Signed Impressions: Service Date/Time: Monday, June 26, 2017 00:41 - CONCLUSION: 1. Minimal broad-based disc bulges at L3-4 and L4-5 levels without stenosis. 2. Mild broad-based protrusion more such the left at L5-S1. Justo Mayen MD Objective Remarks GENERAL: AOX3 NAD. SKIN: Warm and dry. HEAD: Normocephalic. EYES: No scleral icterus. No injection or drainage. NECK: Supple, trachea midline. No JVD or lymphadenopathy. CARDIOVASCULAR: Regular rate and rhythm without murmurs, gallops, or rubs. RESPIRATORY: Breath sounds equal bilaterally. No accessory muscle use. GASTROINTESTINAL: Abdomen soft, non-tender, nondistended. MUSCULOSKELETAL: No cyanosis, or edema. Unable to move right leg - strength 0/ 5. Left leg 5/5 BACK: Nontender without obvious deformity. No CVA tenderness. Procedures None. A/P Problem List: (1) Intractable back pain ICD Code: M54.9 Status: Acute (2) Gait instability ICD Code: R26.81 Status: Acute (3) Leukocytosis ICD Code: D72.829 Status: Acute Assessment and Plan 21-year-old male with PMH of Asthma and recent admission for right sciatic pain who presented with complaints of continued severe right sided sciatic pain Intractable Back Pain: recent admit 06/05-06/09/17 for similar complaints following fall while skateboarding. Presented complaining of persistent pain. Reviewed: On previous admission patient had MRI of the entire spine and right hip. Spinal MRI showed tiny right paracentral protrusion at T10-11 and T11-12 w / no canal stenosis, minimal broad based disc bulges at L3-4 and L4-5 without stenosis. Hip MRI showed no evidence of occult fracture, minimal edema in the subcutaneous tissue right hip most prominent in the greater trochanteric bursa, no pathologic joint effusion. Patient had repeat thoracic and lumbar spine MRI in the ED with no acute changes from previous. -Has been treated with NSAIDs, steroids, gabapentin, opiates, muscle relaxers. -Previously evaluated by neurosurgery who recommended no surgical intervention -Gabapentin increased to 600 mg 3 times daily on 06/28 -Patient reports his pain is mostly from intermittent muscle spasms. Continue scheduled Valium. Changed tizanidine to Soma, symptoms improving on Soma. -Continue Lidoderm patch daily -D/C steroids with IV Solumedrol 40mg bid -Resume NSAIDs with GI protection -Continue PT - Brain MRI unremarkable. - Right sacroilitis - Patient's symptoms are likely due to sacroiliitis and surrounding edema noticed on repeat hip MRI. - I discussed the case at length with orthopedic surgeon as well as interventional radiologist. - Our original plan today was to do intra-articular steroid injection. I discussed with IR again. There is some suspicion for infectious etiology - IR Will do a biopsy today. If negative, we can do intra-articular steroid inject early next week. Right lower extremity weakness: Imaging as above. Consulted neurology, D/W Dr. Thomas, symptoms seem related to right lumbosacral plexus injury, would benefit from an EMG, symptoms will probably take a few months to heal. Discussed with radiology, no significant abnormalities regarding lumbosacral plexus on MRIs. 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 No evidence of denervation potentials on EMG. EMG showed some muscle spasm and decrease recruitment at times due to pain. - Neurology consulted --> NCV/EMG results does not correlate with symptoms, requests outpatient f/up with him in 1 week Gait Instability: secondary to above, imaging w/ no clear etiology. Continue daily PT. Case management consulted to assist with continued outpatient PT at discharge. Leukocytosis: WBC 13.1, afebrile, likely secondary to steroid therapy. Cellulitis/Abscesses: mild. Actively draining, no need for I&D. Continue Bactrim /Keflex. Wound culture with MRSA. Anxiety - continue Clonazepam 1mg Q8hrs. Full code. DVT Prophylaxis: SCD/Teds. Cynthia Stockton DO Jul 02, 2017 11:07
[2017-07-02 12:00] VITALS: BP 128/69; PULSE 93; RESP 16; TEMP 98; O2SAT 98
[2017-07-02] MEDS ORDERED: TRIAMCINOLONE ACETONIDE 40 MG/ML VIAL ONE (14:15)
[2017-07-02] MEDS ORDERED: BUPIVACAINE HCL PF 0.75% 30 ML VIAL ONE (14:16)
--- NOTE | 2017-07-02 14:59 | PD.RAD ---
Post Procedure Progress Note Pre Procedure Diagnosis: (1) Intractable pain (2) Leukocytosis Post Procedure Diagnosis: (1) Intractable pain (2) Leukocytosis Procedure Date: Jul 02, 2017 Supervising Radiologist: Gus Cheng Estimated blood loss: none Anesthesia: Local Plan of Activity Patient to Unit: Nursing Unit Patient Condition: Good Additional Comments: MRI demonstrated edema in the right SI joint. PT has severe pain with elevated WBC. Case was discussed with Dr. Stockton. MRI could be sacroiliitis vs infection. Aspiration biopsy of SI joint completed. samples sent for culture. No steroids administered. See PACS Report for procedural detail/treatment Gus Cheng MD Jul 02, 2017 14:59
[2017-07-02] MEDS ORDERED: IOHEXOL 300 MG/ML 50 ML BTL (for RAD DIAG) ONE (15:02)
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
[2017-07-02 16:00] VITALS: BP 131/83; PULSE 93; RESP 16; TEMP 98.1; O2SAT 97
[2017-07-02 20:00] VITALS: BP 142/74; PULSE 100; RESP 18; TEMP 97.8; O2SAT 97
[2017-07-02] MEDS: ACETAMINOPHEN/HYDROcodone 325 MG/7.5 MG TAB PO PRN (21:11)
[2017-07-03] VITALS: BP 137/72; PULSE 88; RESP 18; TEMP 97.3; O2SAT 97
[2017-07-03] MEDS: ACETAMINOPHEN/HYDROcodone 325 MG/7.5 MG TAB PO PRN ×2 (01:03→06:13)
[2017-07-03] MEDS: MORPHINE SULFATE 4 MG/ML INJ IV PRN ×6 (02:18→20:17)
[2017-07-03] MEDS: clonazePAM 1 MG TAB PO PRN ×3 (03:46→20:20)
[2017-07-03 04:00] VITALS: BP 113/57; PULSE 73; RESP 18; TEMP 98.9; O2SAT 99
[2017-07-03] MEDS: CEPHALEXIN MONOHYDRATE 500 MG CAP PO SCH ×3 (05:12→20:35)
[2017-07-03] MEDS: KETOROLAC TROMETHAMINE 30 MG/ML (IVP) VIAL IV PUSH SCH ×2 (05:12→11:49)
[2017-07-03 08:00] VITALS: BP 131/62; PULSE 70; RESP 16; TEMP 97.6; O2SAT 100
[2017-07-03] MEDS: CARISOPRODOL 350 MG TAB PO PRN ×2 (08:58→18:05)
[2017-07-03] MEDS: GABAPENTIN 300 MG CAP PO SCH ×3 (08:58→18:05)
[2017-07-03] MEDS: SULFAMETHOXAZOLE-TRIMETHOPRIM DS 800-160 MG TAB PO SCH ×2 (08:59→20:20)
[2017-07-03] MEDS: FAMOTIDINE 20 MG TAB PO SCH ×2 (09:00→20:20)
[2017-07-03] MEDS: LIDOCAINE HCL 5% PATCH T-DERMAL SCH (09:01)
[2017-07-03] MEDS: SODIUM CHLORIDE 0.9% FLUSH 10 ML FLUSH IV FLUSH SCH ×2 (09:03→21:00)
[2017-07-03] MEDS: REMOVE OLD PATCH T-DERMAL SCH (09:05)
--- NOTE | 2017-07-03 10:31 | HHI.PR ---
Subjective Remarks Follow up for back pain, weakness, muscle spasms. Patient complains of a lot of pain from his right hip. No fever, chills. Requests to increase anxiety medications. Objective Vitals Vital Signs Date Time Temp Pulse Resp B/P Pulse Ox O2 Delivery O2 Flow Rate FiO2 07/03/17 08:00 97.6 70 16 131/62 100 07/03/17 04:00 98.9 73 18 113/57 99 07/03/17 00:00 97.3 88 18 137/72 97 07/02/17 20:00 97.8 100 18 142/74 97 07/02/17 16:00 98.1 93 16 131/83 97 07/02/17 12:00 98.0 93 16 128/69 98 I/O 07/02/17 07/02/17 07/02/17 07/03/17 07/03/17 07/03/17 07:00 15:00 23:00 07:00 15:00 23:00 Intake Total 32 ml 360 ml 650 ml Balance 32 ml 360 ml 650 ml Intake Oral 32 ml 360 ml 650 ml # Voids 4 3 # Bowel Movements 1 Result Diagram: 06/29/17 0600 06/29/17 1128 Imaging Last Impressions Needle Biopsy X-Ray 07/02/17 0000 Signed Impressions: Service Date/Time: Sunday, July 02, 2017 14:21 - CONCLUSION: Uncomplicated needle biopsy/aspiration of the right sacroiliac joint. Gus Cheng MD Hip MRI 07/01/17 0000 Signed Impressions: Service Date/Time: June 10:39 - CONCLUSION: 1. Significant edema around the right sacroiliac joint correlate for inflammatory arthritis. 2. Soft tissue edema overlying the hip. Mild edema at the origin of the vastus lateralis muscle Quinton Marte MD Brain MRI 07/01/17 0000 Signed Impressions: Service Date/Time: June 10:39 - CONCLUSION: Normal examination. Stephen Best Jr., MD Thoracic Spine MRI 06/26/17 0000 Signed Impressions: Service Date/Time: Monday, June 26, 2017 00:41 - CONCLUSION: 1. Tiny right paracentral protrusion at T10-11 without canal stenosis. 2. Small right paracentral protrusion at T11-12 without canal stenosis. 3. No compression fracture or spondylolisthesis. Justo Mayen MD Lumbar Spine MRI 06/26/17 0000 Signed Impressions: Service Date/Time: Monday, June 26, 2017 00:41 - CONCLUSION: 1. Minimal broad-based disc bulges at L3-4 and L4-5 levels without stenosis. 2. Mild broad-based protrusion more such the left at L5-S1. Justo Mayen MD Objective Remarks GENERAL: AOX3 NAD. SKIN: Warm and dry. HEAD: Normocephalic. EYES: No scleral icterus. No injection or drainage. NECK: Supple, trachea midline. No JVD or lymphadenopathy. CARDIOVASCULAR: Regular rate and rhythm without murmurs, gallops, or rubs. RESPIRATORY: Breath sounds equal bilaterally. No accessory muscle use. GASTROINTESTINAL: Abdomen soft, non-tender, nondistended. MUSCULOSKELETAL: No cyanosis, or edema. Unable to move right leg - strength 1/ 5. Left leg 5/5 BACK: Nontender without obvious deformity. No CVA tenderness. Procedures 07/02/2017 Aspiration biopsy of right SI joint by IR A/P Problem List: (1) Intractable back pain ICD Code: M54.9 Status: Acute (2) Gait instability ICD Code: R26.81 Status: Acute (3) Leukocytosis ICD Code: D72.829 Status: Acute Assessment and Plan 21-year-old male with PMH of Asthma and recent admission for right sciatic pain who presented with complaints of continued severe right sided sciatic pain Intractable Back Pain: recent admit 06/05-06/09/17 for similar complaints following fall while skateboarding. Presented complaining of persistent pain. Reviewed: On previous admission patient had MRI of the entire spine and right hip. Spinal MRI showed tiny right paracentral protrusion at T10-11 and T11-12 w / no canal stenosis, minimal broad based disc bulges at L3-4 and L4-5 without stenosis. Hip MRI showed no evidence of occult fracture, minimal edema in the subcutaneous tissue right hip most prominent in the greater trochanteric bursa, no pathologic joint effusion. Patient had repeat thoracic and lumbar spine MRI in the ED with no acute changes from previous. -Has been treated with NSAIDs, steroids, gabapentin, opiates, muscle relaxers. -Previously evaluated by neurosurgery who recommended no surgical intervention -Gabapentin increased to 600 mg 3 times daily on 06/28 -Patient reports his pain is mostly from intermittent muscle spasms. Continue scheduled Valium. Changed tizanidine to Soma, -Continue Lidoderm patch daily -Resume NSAIDs with GI protection -Continue PT -Brain MRI unremarkable. - Right sacroilitis - Patient's symptoms are likely due to sacroiliitis and surrounding edema noticed on repeat hip MRI. - I discussed the case at length with orthopedic surgeon as well as interventional radiologist on 07/02/2017. - IR performed right SI joint biopsy and sent for culture. If negative, we can do intra-articular steroid inject early next week. Right lower extremity weakness: Imaging as above. Consulted neurology, D/W Dr. Thomas, symptoms seem related to right lumbosacral plexus injury, would benefit from an EMG, symptoms will probably take a few months to heal. Discussed with radiology, no significant abnormalities regarding lumbosacral plexus on MRIs. 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 No evidence of denervation potentials on EMG. EMG showed some muscle spasm and decrease recruitment at times due to pain. - Neurology consulted --> NCV/EMG results does not correlate with symptoms, requests outpatient f/up with him in 1 week Gait Instability: secondary to above, imaging w/ no clear etiology. Continue daily PT. Case management consulted to assist with continued outpatient PT at discharge. Leukocytosis: WBC 13.1, afebrile, likely secondary to steroid therapy. However , infection remains a possibility. Cellulitis/Abscesses: mild. Actively draining, no need for I&D. Continue Bactrim /Keflex. Wound culture with MRSA. Anxiety - Increase Clonazepam 2mg Q8hrs. Will plan to decrease the dose depending on the clinical course. Full code. DVT Prophylaxis: SCD/Teds. Cynthia Stockton DO Jul 03, 2017 10:31 am
[2017-07-03 12:00] VITALS: BP 126/67; PULSE 101; RESP 16; TEMP 97.3; O2SAT 99
[2017-07-03 16:00] VITALS: BP 123/60; PULSE 97; RESP 16; TEMP 98; O2SAT 98
[2017-07-03] MEDS ORDERED: NICOTINE 14 MG/24 HR PATCH T-DERMAL ONE (19:30)
[2017-07-03 19:54] VITALS: BP 115/68; PULSE 114; RESP 18; TEMP 97.8; O2SAT 98
[2017-07-04] VITALS: BP 118/68; PULSE 70; RESP 20; TEMP 97.8; O2SAT 99
[2017-07-04] MEDS: MORPHINE SULFATE 4 MG/ML INJ IV PRN ×7 (01:17→20:31)
[2017-07-04] MEDS: CARISOPRODOL 350 MG TAB PO PRN ×3 (01:29→19:29)
[2017-07-04 04:00] VITALS: BP 127/68; PULSE 78; RESP 20; TEMP 97.3; O2SAT 99
[2017-07-04] MEDS: clonazePAM 1 MG TAB PO PRN ×3 (04:03→19:33)
[2017-07-04] MEDS: SODIUM CHLORIDE 0.9% FLUSH 10 ML FLUSH IV FLUSH PRN ×3 (04:05→20:32)
[2017-07-04 04:22] LABS: AUTOMATED NEUTROPHIL # 5.4 TH/MM3 (1.8-7.7); BASOPHIL % 0.2 % (0.0-2.0); EOSINOPHIL # 0.2 TH/MM3 (0-0.4); EOSINOPHIL % 2.2 % (0.0-4.0); HEMATOCRIT 37.4 % (39.0-51.0); HEMO FLAGS DIFF FINAL; LYMPH % 29.2 % (9.0-44.0); LYMPHOCYTE # 2.7 TH/MM3 (1.0-4.8); MEAN CELL VOLUME 79.7 FL (80.0-100.0); MEAN CORPUSCULAR HEMOGLOBIN 25.5 PG (27.0-34.0); MEAN CORPUSCULAR HGB CONC 31.9 % (32.0-36.0); MONO % 10.5 % (0.0-8.0); NEUT % 57.9 % (16.0-70.0); PLATELET COUNT 238 TH/MM3 (150-450); RED BLOOD COUNT 4.69 MIL/MM3 (4.50-5.90); RED CELL DISTRIBUTION WIDTH 17.1 % (11.6-17.2); WHITE BLOOD COUNT 9.4 TH/MM3 (4.0-11.0)
[2017-07-04 04:50] LABS: BICARBONATE 31.5 MEQ/L (21.0-32.0); POTASSIUM 4.5 MEQ/L (3.5-5.1)
[2017-07-04] MEDS: CEPHALEXIN MONOHYDRATE 500 MG CAP PO SCH ×3 (06:33→22:08)
--- NOTE | 2017-07-04 07:21 | HHI.PR ---
Subjective Remarks Follow up for back pain, weakness, muscle spasms. Patient complains of significant pain. He apparently took shower with help from his fiance. During shower, he felt pain and also felt that his right hip was bulging out as well as right lower back. No fever, chills. Requests soma and Clonazepam to be given at the same time in the morning and night. Objective Vitals Vital Signs Date Time Temp Pulse Resp B/P Pulse Ox O2 Delivery O2 Flow Rate FiO2 07/04/17 04:00 97.3 78 20 127/68 99 07/04/17 00:00 97.8 70 20 118/68 99 07/03/17 19:54 97.8 114 18 115/68 98 07/03/17 16:00 98.0 97 16 123/60 98 07/03/17 12:00 97.3 101 16 126/67 99 07/03/17 08:00 97.6 70 16 131/62 100 I/O 07/03/17 07/03/17 07/03/17 07/04/17 07/04/17 07/04/17 07:00 15:00 23:00 07:00 15:00 23:00 Intake Total 650 ml 300 ml Output Total 1300 ml Balance 650 ml -1000 ml Intake Oral 650 ml 300 ml Output Urine Total 1300 ml # Voids 3 # Bowel Movements 0 Result Diagram: 07/04/17 0350 07/04/17 0350 Imaging Last Impressions Needle Biopsy X-Ray 07/02/17 0000 Signed Impressions: Service Date/Time: Sunday, July 02, 2017 14:21 - CONCLUSION: Uncomplicated needle biopsy/aspiration of the right sacroiliac joint. Gus Cheng MD Hip MRI 07/01/17 0000 Signed Impressions: Service Date/Time: June 10:39 - CONCLUSION: 1. Significant edema around the right sacroiliac joint correlate for inflammatory arthritis. 2. Soft tissue edema overlying the hip. Mild edema at the origin of the vastus lateralis muscle Quinton Marte MD Brain MRI 07/01/17 0000 Signed Impressions: Service Date/Time: June 10:39 - CONCLUSION: Normal examination. Stephen Best Jr., MD Thoracic Spine MRI 06/26/17 0000 Signed Impressions: Service Date/Time: Monday, June 26, 2017 00:41 - CONCLUSION: 1. Tiny right paracentral protrusion at T10-11 without canal stenosis. 2. Small right paracentral protrusion at T11-12 without canal stenosis. 3. No compression fracture or spondylolisthesis. Justo Mayen MD Lumbar Spine MRI 06/26/17 0000 Signed Impressions: Service Date/Time: Monday, June 26, 2017 00:41 - CONCLUSION: 1. Minimal broad-based disc bulges at L3-4 and L4-5 levels without stenosis. 2. Mild broad-based protrusion more such the left at L5-S1. Justo Mayen MD Last Impressions Needle Biopsy X-Ray 07/02/17 0000 Signed Impressions: Service Date/Time: Sunday, July 02, 2017 14:21 - CONCLUSION: Uncomplicated needle biopsy/aspiration of the right sacroiliac joint. Gus Cheng MD Hip MRI 07/01/17 0000 Signed Impressions: Service Date/Time: June 10:39 - CONCLUSION: 1. Significant edema around the right sacroiliac joint correlate for inflammatory arthritis. 2. Soft tissue edema overlying the hip. Mild edema at the origin of the vastus lateralis muscle Quinton Marte MD Brain MRI 07/01/17 0000 Signed Impressions: Service Date/Time: June 10:39 - CONCLUSION: Normal examination. Stephen Best Jr., MD Thoracic Spine MRI 06/26/17 0000 Signed Impressions: Service Date/Time: Monday, June 26, 2017 00:41 - CONCLUSION: 1. Tiny right paracentral protrusion at T10-11 without canal stenosis. 2. Small right paracentral protrusion at T11-12 without canal stenosis. 3. No compression fracture or spondylolisthesis. Justo Mayen MD Lumbar Spine MRI 06/26/17 0000 Signed Impressions: Service Date/Time: Monday, June 26, 2017 00:41 - CONCLUSION: 1. Minimal broad-based disc bulges at L3-4 and L4-5 levels without stenosis. 2. Mild broad-based protrusion more such the left at L5-S1. Justo Mayen MD Objective Remarks GENERAL: AOX3 NAD. SKIN: Warm and dry. HEAD: Normocephalic. EYES: No scleral icterus. No injection or drainage. NECK: Supple, trachea midline. No JVD or lymphadenopathy. CARDIOVASCULAR: Regular rate and rhythm without murmurs, gallops, or rubs. RESPIRATORY: Breath sounds equal bilaterally. No accessory muscle use. GASTROINTESTINAL: Abdomen soft, non-tender, nondistended. MUSCULOSKELETAL: No cyanosis, or edema. Unable to move right leg - strength 1/ 5. Left leg 5/5 BACK: Nontender without obvious deformity. No CVA tenderness. Procedures 07/02/2017 Aspiration biopsy of right SI joint by IR A/P Problem List: (1) Intractable back pain ICD Code: M54.9 - Dorsalgia, unspecified Status: Acute (2) Gait instability ICD Code: R26.81 - Unsteadiness on feet Status: Acute (3) Leukocytosis ICD Code: D72.829 - Elevated white blood cell count, unspecified Status: Acute Assessment and Plan 21-year-old male with PMH of Asthma and recent admission for right sciatic pain who presented with complaints of continued severe right sided sciatic pain Intractable Back Pain: recent admit 06/05-06/09/17 for similar complaints following fall while skateboarding. Presented complaining of persistent pain. Reviewed: On previous admission patient had MRI of the entire spine and right hip. Spinal MRI showed tiny right paracentral protrusion at T10-11 and T11-12 w / no canal stenosis, minimal broad based disc bulges at L3-4 and L4-5 without stenosis. Hip MRI showed no evidence of occult fracture, minimal edema in the subcutaneous tissue right hip most prominent in the greater trochanteric bursa, no pathologic joint effusion. Patient had repeat thoracic and lumbar spine MRI in the ED with no acute changes from previous. -Has been treated with NSAIDs, steroids, gabapentin, opiates, muscle relaxers. -Previously evaluated by neurosurgery who recommended no surgical intervention -Gabapentin increased to 600 mg 3 times daily on 06/28 -Patient reports his pain is mostly from intermittent muscle spasms. Continue scheduled Valium. Changed tizanidine to Soma, -Continue Lidoderm patch daily -Resume NSAIDs with GI protection -Continue PT -Brain MRI unremarkable. -We obtained hip xray today which did not show any acute fracture or any acute findings. - Right sacroilitis - Patient's symptoms are likely due to sacroiliitis and surrounding edema noticed on repeat hip MRI. - Biopsy was done and gram stain so far negative. - Will plan on getting intra-articular steroid injection by IR on 07/05/2017. - Will also consider an input from orthopedic surgery. Right lower extremity weakness: Imaging as above. Consulted neurology, D/W Dr. Thomas, symptoms seem related to right lumbosacral plexus injury, would benefit from an EMG, symptoms will probably take a few months to heal. Discussed with radiology, no significant abnormalities regarding lumbosacral plexus on MRIs. 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 No evidence of denervation potentials on EMG. EMG showed some muscle spasm and decrease recruitment at times due to pain. - Neurology consulted --> NCV/EMG results does not correlate with symptoms, requests outpatient f/up with him in 1 week Gait Instability: secondary to above, imaging w/ no clear etiology. Continue daily PT. Case management consulted to assist with continued outpatient PT at discharge. Leukocytosis: WBC 13.1, afebrile, likely secondary to steroid therapy. However , infection remains a possibility. Cellulitis/Abscesses: mild. Actively draining, no need for I&D. Continue Bactrim /Keflex. Wound culture with MRSA. Anxiety - Increase Clonazepam 2mg Q8hrs. Will plan to decrease the dose depending on the clinical course. Full code. DVT Prophylaxis: SCD/Teds. Cynthia Stockton DO Jul 04, 2017 07:21
[2017-07-04 07:59] VITALS: BP 128/62; PULSE 88; RESP 16; TEMP 97.2; O2SAT 100
[2017-07-04] MEDS: SODIUM CHLORIDE 0.9% FLUSH 10 ML FLUSH IV FLUSH SCH ×2 (09:31→22:08)
[2017-07-04] MEDS: REMOVE OLD PATCH T-DERMAL SCH (09:31)
[2017-07-04] MEDS: SULFAMETHOXAZOLE-TRIMETHOPRIM DS 800-160 MG TAB PO SCH ×2 (09:31→19:33)
[2017-07-04] MEDS: REMOVE OLD NICODERM (NICOTINE) PATCH T-DERMAL SCH (09:31)
[2017-07-04] MEDS: NICOTINE 14 MG/24 HR PATCH T-DERMAL SCH (09:31)
[2017-07-04] MEDS: GABAPENTIN 300 MG CAP PO SCH ×3 (09:31→17:06)
[2017-07-04] MEDS: FAMOTIDINE 20 MG TAB PO SCH ×2 (09:31→19:29)
[2017-07-04] MEDS: LIDOCAINE HCL 5% PATCH T-DERMAL SCH (09:31)
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
[2017-07-04 12:00] VITALS: BP 123/67; PULSE 103; RESP 16; TEMP 98.1; O2SAT 98
[2017-07-04 16:00] VITALS: BP 138/77; PULSE 97; RESP 17; TEMP 98.2; O2SAT 99
[2017-07-04 20:00] VITALS: BP 151/82; PULSE 106; RESP 18; TEMP 98.5; O2SAT 98
[2017-07-05 01:05] VITALS: BP 120/64; PULSE 80; RESP 20; TEMP 98; O2SAT 94
[2017-07-05] MEDS: MORPHINE SULFATE 4 MG/ML INJ IV PRN ×6 (01:45→22:53)
[2017-07-05] MEDS: SODIUM CHLORIDE 0.9% FLUSH 10 ML FLUSH IV FLUSH PRN ×2 (01:46→22:54)
[2017-07-05] MEDS: CARISOPRODOL 350 MG TAB PO PRN ×3 (04:13→20:12)
[2017-07-05] MEDS: clonazePAM 1 MG TAB PO PRN ×3 (04:13→20:12)
[2017-07-05 04:51] VITALS: BP 124/73; PULSE 87; RESP 20; TEMP 97.9; O2SAT 97
[2017-07-05] MEDS: CEPHALEXIN MONOHYDRATE 500 MG CAP PO SCH ×3 (05:57→20:12)
[2017-07-05 08:13] VITALS: BP 127/59; PULSE 89; RESP 18; TEMP 98.2; O2SAT 98
[2017-07-05] MEDS: REMOVE OLD NICODERM (NICOTINE) PATCH T-DERMAL SCH (09:00)
[2017-07-05] MEDS: LIDOCAINE HCL 5% PATCH T-DERMAL SCH (09:00)
[2017-07-05] MEDS: FAMOTIDINE 20 MG TAB PO SCH ×2 (09:02→20:12)
[2017-07-05] MEDS: SULFAMETHOXAZOLE-TRIMETHOPRIM DS 800-160 MG TAB PO SCH ×2 (09:02→20:12)
[2017-07-05] MEDS: GABAPENTIN 300 MG CAP PO SCH ×3 (09:02→18:00)
[2017-07-05] MEDS: SODIUM CHLORIDE 0.9% FLUSH 10 ML FLUSH IV FLUSH SCH ×2 (09:03→20:13)
[2017-07-05] MEDS: NICOTINE 14 MG/24 HR PATCH T-DERMAL SCH (09:03)
[2017-07-05] MEDS: REMOVE OLD PATCH T-DERMAL SCH (09:14)
[2017-07-05 12:16] VITALS: BP 135/75; PULSE 101; RESP 18; TEMP 98.6; O2SAT 98
--- NOTE | 2017-07-05 12:27 | HHI.PR ---
Subjective Remarks Follow up for back pain, weakness, muscle spasms. Patient continues to have severe right hip pain which limits his mobility significantly. No fever, chills. Objective Vitals Vital Signs Date Time Temp Pulse Resp B/P (MAP) Pulse Ox O2 Delivery O2 Flow Rate FiO2 07/05/17 12:16 98.6 101 18 135/75 (95) 98 07/05/17 08:13 98.2 89 18 127/59 (81) 98 07/05/17 04:51 97.9 87 20 124/73 (90) 97 07/05/17 01:05 98.0 80 20 120/64 (82) 94 07/04/17 20:00 98.5 106 18 151/82 (105) 98 07/04/17 16:00 98.2 97 17 138/77 (97) 99 I/O 07/04/17 07/04/17 07/04/17 07/05/17 07/05/17 07/05/17 06:59 14:59 22:59 06:59 14:59 22:59 Intake Total 300 ml 1200 ml Output Total 1300 ml 550 ml 1050 ml 600 ml Balance -1000 ml 650 ml -1050 ml -600 ml Intake Oral 300 ml 1200 ml Output Urine Total 1300 ml 550 ml 1050 ml 600 ml # Voids 1 # Bowel Movements 0 1 1 Result Diagram: 07/04/17 0350 07/04/17 0350 Imaging Last Impressions Hip and Pelvis X-Ray 07/04/17 0000 Signed Impressions: Service Date/Time: Tuesday, July 04, 2017 08:25 - CONCLUSION: No acute fracture. Justo Mayen MD Needle Biopsy X-Ray 07/02/17 0000 Signed Impressions: Service Date/Time: Sunday, July 02, 2017 14:21 - CONCLUSION: Uncomplicated needle biopsy/aspiration of the right sacroiliac joint. Gus Cheng MD Hip MRI 07/01/17 0000 Signed Impressions: Service Date/Time: June 10:39 - CONCLUSION: 1. Significant edema around the right sacroiliac joint correlate for inflammatory arthritis. 2. Soft tissue edema overlying the hip. Mild edema at the origin of the vastus lateralis muscle Quinton Marte MD Brain MRI 07/01/17 0000 Signed Impressions: Service Date/Time: June 10:39 - CONCLUSION: Normal examination. Stephen Best Jr., MD Thoracic Spine MRI 06/26/17 0000 Signed Impressions: Service Date/Time: Monday, June 26, 2017 00:41 - CONCLUSION: 1. Tiny right paracentral protrusion at T10-11 without canal stenosis. 2. Small right paracentral protrusion at T11-12 without canal stenosis. 3. No compression fracture or spondylolisthesis. Justo Mayen MD Lumbar Spine MRI 06/26/17 0000 Signed Impressions: Service Date/Time: Monday, June 26, 2017 00:41 - CONCLUSION: 1. Minimal broad-based disc bulges at L3-4 and L4-5 levels without stenosis. 2. Mild broad-based protrusion more such the left at L5-S1. Justo Mayen MD Objective Remarks GENERAL: AOX3 NAD. SKIN: Warm and dry. HEAD: Normocephalic. EYES: No scleral icterus. No injection or drainage. NECK: Supple, trachea midline. No JVD or lymphadenopathy. CARDIOVASCULAR: Regular rate and rhythm without murmurs, gallops, or rubs. RESPIRATORY: Breath sounds equal bilaterally. No accessory muscle use. GASTROINTESTINAL: Abdomen soft, non-tender, nondistended. MUSCULOSKELETAL: No cyanosis, or edema. Unable to move right leg - strength 1/ 5. Left leg 5/5 BACK: Nontender without obvious deformity. No CVA tenderness. Procedures 07/02/2017 Aspiration biopsy of right SI joint by IR 07/05/2017 Steroid injection to right SI joint by IR A/P Problem List: (1) Intractable back pain ICD Code: M54.9 - Dorsalgia, unspecified Status: Acute (2) Gait instability ICD Code: R26.81 - Unsteadiness on feet Status: Acute (3) Leukocytosis ICD Code: D72.829 - Elevated white blood cell count, unspecified Status: Acute Assessment and Plan 21-year-old male with PMH of Asthma and recent admission for right sciatic pain who presented with complaints of continued severe right sided sciatic pain Intractable Back Pain: recent admit 06/05-06/09/17 for similar complaints following fall while skateboarding. Presented complaining of persistent pain. Reviewed: On previous admission patient had MRI of the entire spine and right hip. Spinal MRI showed tiny right paracentral protrusion at T10-11 and T11-12 w / no canal stenosis, minimal broad based disc bulges at L3-4 and L4-5 without stenosis. Hip MRI showed no evidence of occult fracture, minimal edema in the subcutaneous tissue right hip most prominent in the greater trochanteric bursa, no pathologic joint effusion. Patient had repeat thoracic and lumbar spine MRI in the ED with no acute changes from previous. -Has been treated with NSAIDs, steroids, gabapentin, opiates, muscle relaxers. -Previously evaluated by neurosurgery who recommended no surgical intervention -Gabapentin increased to 600 mg 3 times daily on 06/28 -Patient reports his pain is mostly from intermittent muscle spasms. Changed tizanidine to Soma, -Continue Lidoderm patch daily -Continue PT -Brain MRI unremarkable. - Right sacroilitis - Patient's symptoms are likely due to sacroiliitis and surrounding edema noticed on repeat hip MRI. - Biopsy was done and gram stain so far negative. - intra-articular steroid injection by IR on 07/05/2017. Discussed with IR. - Will also consider an input from orthopedic surgery, especially if there is no improvement after steroid injection. Right lower extremity weakness: Imaging as above. Consulted neurology, D/W Dr. Thomas, symptoms seem related to right lumbosacral plexus injury, would benefit from an EMG, symptoms will probably take a few months to heal. Discussed with radiology, no significant abnormalities regarding lumbosacral plexus on MRIs. 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 No evidence of denervation potentials on EMG. EMG showed some muscle spasm and decrease recruitment at times due to pain. - Neurology consulted --> NCV/EMG results does not correlate with symptoms, requests outpatient f/up with him in 1 week Gait Instability: secondary to above, imaging w/ no clear etiology. Continue daily PT. Case management consulted to assist with continued outpatient PT at discharge. Leukocytosis: WBC 13.1, afebrile, likely secondary to steroid therapy. However , infection remains a possibility. Cellulitis/Abscesses: mild. Actively draining, no need for I&D. Continue Bactrim /Keflex. Wound culture with MRSA. Anxiety - Increase Clonazepam 2mg Q8hrs. Will plan to decrease the dose depending on the clinical course. Full code. DVT Prophylaxis: SCD/Teds. Cynthia Stockton DO Jul 05, 2017 12:27
[2017-07-05] MEDS ORDERED: TRIAMCINOLONE ACETONIDE 40 MG/ML VIAL ONE (14:25)
[2017-07-05] MEDS ORDERED: BUPIVACAINE HCL PF 0.75% 30 ML VIAL ONE (14:25)
[2017-07-05] MEDS ORDERED: IODIXANOL 320 MG/ML 50 ML VIAL (for RAD SPEC) ONE (14:42)
--- NOTE | 2017-07-05 14:42 | PD.RAD ---
Post Procedure Progress Note Pre Procedure Diagnosis: (1) Intractable back pain Post Procedure Diagnosis: (1) Intractable back pain Procedure Date: Jul 05, 2017 Supervising Radiologist: Stephen Best JR Proceduralist/Assist: RT Torey(R) Anesthesia: Local Plan of Activity Patient to Unit: Nursing Unit Patient Condition: Good Additional Comments: Right SI joint steroid injection. When injecting the contrast the patient stated this generated pain similar to his pain he has been experiencing. A mixture or Kenaloge, Marcaine and Lidocaine instilled into the right SI joint See PACS Report for procedural detail/treatment Jr. Nasir,Stephen Vargas MD Jul 05, 2017 14:42
[2017-07-05 16:06] VITALS: BP 118/75; PULSE 108; RESP 18; TEMP 98; O2SAT 100
[2017-07-05 20:00] VITALS: BP 134/82; PULSE 109; RESP 18; TEMP 97.4; O2SAT 97
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
[2017-07-06] VITALS: BP 136/80; PULSE 98; RESP 18; TEMP 97.2; O2SAT 97
[2017-07-06] MEDS: MORPHINE SULFATE 4 MG/ML INJ IV PRN ×3 (03:36→09:46)
[2017-07-06] MEDS: SODIUM CHLORIDE 0.9% FLUSH 10 ML FLUSH IV FLUSH PRN ×2 (03:36→06:21)
[2017-07-06 05:59] VITALS: BP 132/74; PULSE 82; RESP 18; TEMP 97.9; O2SAT 98
[2017-07-06 08:09] VITALS: BP 127/58; PULSE 81; RESP 20; TEMP 98; O2SAT 97
[2017-07-06] MEDS: clonazePAM 1 MG TAB PO PRN ×3 (08:59→22:02)
[2017-07-06] MEDS: CARISOPRODOL 350 MG TAB PO PRN ×3 (08:59→22:02)
[2017-07-06] MEDS: REMOVE OLD NICODERM (NICOTINE) PATCH T-DERMAL SCH (09:00)
[2017-07-06] MEDS: REMOVE OLD PATCH T-DERMAL SCH (09:30)
[2017-07-06] MEDS ORDERED: LIDOCAINE 1%/EPINEPHrine 1:100,000 SOLN 20 ML VIAL INFIL ONE (09:30)
[2017-07-06] MEDS: NICOTINE 14 MG/24 HR PATCH T-DERMAL SCH (09:45)
[2017-07-06] MEDS: SODIUM CHLORIDE 0.9% FLUSH 10 ML FLUSH IV FLUSH SCH ×2 (09:46→20:55)
[2017-07-06] MEDS: SULFAMETHOXAZOLE-TRIMETHOPRIM DS 800-160 MG TAB PO SCH ×2 (09:46→20:55)
[2017-07-06] MEDS: GABAPENTIN 300 MG CAP PO SCH ×3 (09:46→19:32)
[2017-07-06] MEDS: FAMOTIDINE 20 MG TAB PO SCH ×2 (09:46→20:55)
[2017-07-06] MEDS: LIDOCAINE HCL 5% PATCH T-DERMAL SCH (09:46)
--- NOTE | 2017-07-06 10:54 | HHI.PR ---
Subjective Remarks Follow up for back pain, weakness, muscle spasms, sacroilitis, MRSA abscess on the left leg. Patient is sitting in his bed today and was able to get up with walker and take a few steps. He complained of significant difficulty and used upper body to move. He underwent SI joint steroid injection yesterday. Objective Vitals Vital Signs Date Time Temp Pulse Resp B/P (MAP) Pulse Ox O2 Delivery O2 Flow Rate FiO2 07/06/17 08:09 98.0 81 20 127/58 (81) 97 07/06/17 05:59 97.9 82 18 132/74 (93) 98 07/06/17 00:00 97.2 98 18 136/80 (98) 97 07/05/17 20:00 97.4 109 18 134/82 (99) 97 07/05/17 16:06 98.0 108 18 118/75 (89) 100 07/05/17 12:16 98.6 101 18 135/75 (95) 98 I/O 07/05/17 07/05/17 07/05/17 07/06/17 07/06/17 07/06/17 07:00 15:00 23:00 07:00 15:00 23:00 Intake Total 240 ml Output Total 600 ml Balance -600 ml 240 ml Intake Oral 240 ml Output Urine Total 600 ml # Voids 1 4 # Bowel Movements 1 Result Diagram: 07/04/17 0350 07/04/17 0350 Imaging Last Impressions Facet Joint Injection X-Ray 07/05/17 0000 Signed Impressions: Service Date/Time: Wednesday, July 05, 2017 14:22 - CONCLUSION: Uncomplicated fluoroscopically guided right sacroiliac joint injection as above. Stephen Best Jr., MD Hip and Pelvis X-Ray 07/04/17 0000 Signed Impressions: Service Date/Time: Tuesday, July 04, 2017 08:25 - CONCLUSION: No acute fracture. Justo Mayen MD Needle Biopsy X-Ray 07/02/17 0000 Signed Impressions: Service Date/Time: Sunday, July 02, 2017 14:21 - CONCLUSION: Uncomplicated needle biopsy/aspiration of the right sacroiliac joint. Gus Cheng MD Hip MRI 07/01/17 0000 Signed Impressions: Service Date/Time: June 10:39 - CONCLUSION: 1. Significant edema around the right sacroiliac joint correlate for inflammatory arthritis. 2. Soft tissue edema overlying the hip. Mild edema at the origin of the vastus lateralis muscle Quinton Marte MD Brain MRI 07/01/17 0000 Signed Impressions: Service Date/Time: June 10:39 - CONCLUSION: Normal examination. Stephen Best Jr., MD Thoracic Spine MRI 06/26/17 0000 Signed Impressions: Service Date/Time: Monday, June 26, 2017 00:41 - CONCLUSION: 1. Tiny right paracentral protrusion at T10-11 without canal stenosis. 2. Small right paracentral protrusion at T11-12 without canal stenosis. 3. No compression fracture or spondylolisthesis. Justo Mayen MD Lumbar Spine MRI 06/26/17 0000 Signed Impressions: Service Date/Time: Monday, June 26, 2017 00:41 - CONCLUSION: 1. Minimal broad-based disc bulges at L3-4 and L4-5 levels without stenosis. 2. Mild broad-based protrusion more such the left at L5-S1. Justo Mayen MD Objective Remarks GENERAL: AOX3 NAD. SKIN: Warm and dry. HEAD: Normocephalic. EYES: No scleral icterus. No injection or drainage. NECK: Supple, trachea midline. No JVD or lymphadenopathy. CARDIOVASCULAR: Regular rate and rhythm without murmurs, gallops, or rubs. RESPIRATORY: Breath sounds equal bilaterally. No accessory muscle use. GASTROINTESTINAL: Abdomen soft, non-tender, nondistended. MUSCULOSKELETAL: No cyanosis, or edema. Unable to move right leg - strength 1/ 5. Left leg 5/5 BACK: Nontender without obvious deformity. No CVA tenderness. Procedures 07/02/2017 Aspiration biopsy of right SI joint by IR 07/05/2017 Steroid injection to right SI joint by IR A/P Problem List: (1) Intractable back pain ICD Code: M54.9 - Dorsalgia, unspecified Status: Acute (2) Gait instability ICD Code: R26.81 - Unsteadiness on feet Status: Acute (3) Leukocytosis ICD Code: D72.829 - Elevated white blood cell count, unspecified Status: Acute Assessment and Plan 21-year-old male with PMH of Asthma and recent admission for right sciatic pain who presented with complaints of continued severe right sided sciatic pain Intractable Back Pain: recent admit 06/05-06/09/17 for similar complaints following fall while skateboarding. Presented complaining of persistent pain. Reviewed: On previous admission patient had MRI of the entire spine and right hip. Spinal MRI showed tiny right paracentral protrusion at T10-11 and T11-12 w / no canal stenosis, minimal broad based disc bulges at L3-4 and L4-5 without stenosis. Hip MRI showed no evidence of occult fracture, minimal edema in the subcutaneous tissue right hip most prominent in the greater trochanteric bursa, no pathologic joint effusion. Patient had repeat thoracic and lumbar spine MRI in the ED with no acute changes from previous. -Previously evaluated by neurosurgery who recommended no surgical intervention -Gabapentin increased to 600 mg 3 times daily on 06/28 -Patient reports his pain is mostly from intermittent muscle spasms. Changed tizanidine to Soma, -Continue Lidoderm patch daily -Continue PT -Brain MRI unremarkable. -Will change pain medications - Acetaminophen for pain 1-4, Percocet 7.5 for pain 5-10, Dilaudid 1mg PRN for breakthrough. - Right sacroilitis - Patient's symptoms are likely due to sacroiliitis and surrounding edema noticed on repeat hip MRI. - Biopsy was done and gram stain so far negative. - intra-articular steroid injection by IR on 07/05/2017. - We will request an Orthopedic surgery consult. Right lower extremity weakness: Imaging as above. Consulted neurology, D/W Dr. Thomas, symptoms seem related to right lumbosacral plexus injury, would benefit from an EMG, symptoms will probably take a few months to heal. Discussed with radiology, no significant abnormalities regarding lumbosacral plexus on MRIs. 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 No evidence of denervation potentials on EMG. EMG showed some muscle spasm and decrease recruitment at times due to pain. - Neurology consulted --> NCV/EMG results does not correlate with symptoms, requests outpatient f/up with him in 1 week Gait Instability: secondary to above, imaging w/ no clear etiology. Continue daily PT. Case management consulted to assist with continued outpatient PT at discharge. Cellulitis/Abscesses of the left lower ext. - Cx grew MRSA. General surgery performed I&D. - ID following. Anxiety - Increase Clonazepam 2mg Q8hrs. Full code. DVT Prophylaxis SCDs. Discussed with RN. Cynthia Stockton DO Jul 06, 2017 10:54
[2017-07-06] MEDS ORDERED: LIDOCAINE 2%/EPINEPHrine 1:100,000 30ML MDV INFIL ONE (11:30)
[2017-07-06] MEDS ORDERED: LIDOCAINE 2%/EPINEPHrine 1:100,000 20ML MDV INFIL ONE (11:45)
[2017-07-06] MEDS: oxyCODONE/ACETAMINOPHEN 7.5 MG/325 MG TAB PO PRN ×2 (12:02→19:32)
[2017-07-06 12:05] VITALS: BP 145/80; PULSE 88; RESP 20; TEMP 97.8; O2SAT 99
[2017-07-06] MEDS: HYDROmorphone HCL PF 1 MG/ML VIAL IV PUSH PRN ×3 (12:54→20:54)
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
[2017-07-06 16:24] VITALS: BP 158/75; PULSE 88; RESP 20; TEMP 97.7; O2SAT 97
--- NOTE | 2017-07-06 16:53 | HHI.NSPN ---
(Aleksandar Ricketts) History Chief Complaint: Right buttock and back pain. (Aleksandar Ricketts) Interval History 07/06: The patient is seen as he is being evaluated by Orthopaedic Surgery. He complains of pain to the right buttock and the back, especially to the right lateral region. He also has weakness to the right lower extremity. The patient had a steroid injection yesterday by Interventional Radiology which does not seem to have helped with the pain. (Aleksandar Ricketts) System Review Comments Back: Patient complains of pain to the back, especially to the right lateral. Extremities: Patient complains of pain to the right buttock and hip. He also has some knee pain at times. He denies any other pain to the extremities. Neurological: Patient complains of weakness to the right lower extremity. He denies any weakness to the left lower or either upper extremity. (Aleksandar Ricketts) Exam Results Vital Signs Date Time Temp Pulse Resp B/P (MAP) Pulse Ox O2 Delivery O2 Flow Rate FiO2 07/06/17 12:05 97.8 88 20 145/80 (101) 99 Intake and Output 07/06/17 07/06/17 07/06/17 07:59 15:59 23:59 Intake Total 480 ml Balance 480 ml (Aleksandar Ricketts) Physical Examination General: The patient is awake & alert. He readily interacts. His affect is normal. He appears moderately to severely uncomfortable as the RLE is evaluated due to pain. Skin: Warm & dry. There is an intact dressing to the left lateral calf. Otherwise there are no rashes, ulcerations or lesions. Back: The midline lumbosacral spine is TTP. As the right back is palpated laterally from the spine it becomes increasingly tender. Extremities: He is tender to palpation of the right buttock. Neurological: AAOx3. Speech clear & appropriate. Follows simple commands w/o difficulty. Sensation decreased to right lateral lower leg and foot, otherwise intact to lower extremities. Motor strength 4+ to5/5 LLE. Motor strength RLE: hip flexion 3+ to 4/5, knee extension 4/5, hip extension 3/5 , ankle extension & flexion 3/5, plantar flexion 2+/5. (Aleksandar Ricketts) Lab, Micro, Other Results Thoracic spine MRI demonstrates a tiny right paracentral protrusion at T10-11 and a small one at T11-12, both w/o canal stenosis. There is no compression fracture or spondylolisthesis. Lumbar spine MRI demonstrates minimal broad-based disc bulges at L3- 4 & L4-5 w/o stenosis and mild broad-based protrusion, especially to the left, at L5-S1. MRI hip, right demonstrates significant edema to the right sacroiliac joint with soft tissue edema overlying the hip. There was also mild edema at the origin of the vastus lateralis muscle. MRI brain was a normal examination. 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 No evidence of denervation potentials on EMG. EMG showed some muscle spasm and decrease recruitment at times due to pain. (Aleksandar Ricketts) Medical Decision Making Impression and Plan Impression: Intractable back pain Intractable right buttock/hip pain Right lower extremity weakness Gait instability Differential diagnoses: Sciatic nerve contusion Inferior gluteal artery pseudoaneurysm (Can J Surgery. 1982: 26(6): 554-5. Added at 1107. BET) Gluteal compartment syndrome (not supported by MRI) Post traumatic piriformis syndrome (J Bone Joint Surgery Am, 1998 Kt: 81(7): 941-9. Added at 1107. BET) Plan: Consider MRA vs US for evaluation of possible pseudoaneurysm Consider sciatic nerve diffusion tensor imaging to detect possible nerve damage Consider botox injection. (Added at 1107. BET) ADDENDUM at 0817: The above differential diagnoses and plan was discussed with Dr Garay on at 1107. BET (Aleksandar Ricketts) Attending Statement The patient has been previously seen by the undersigned during his previous admission. On my exam on 07/02/19 , he continues to have significant tenderness of the right gluteal and sciatic notch and lateral hip region . Moderate somewhat diffuse decreased sensation to light touch right LE, primarily posterior and lateral thigh and calf. Motor testing somewhat difficult due to pain, with mostly 4/5 proximal and 3 to 3+ distal RLE motor function. No clonus. Plantar neutral. Reflexes 2+ bilateral patellar and 1+ achilles. MRI hip reviewed. Patient seen by neurology, orthopedic, PM and R. EMG/NCV negative for definite plexopathy or sciatic neuropathy. Patient appears to have right gluteal myofascial pain with inflammation at the SI joint as seen on MRI. Probable sciatic nerve contusion, which may not be seen on early EMG. Gluteal artery pseudoaneurysm has been an infrequently reported cause of sciatic neuropathy in patients with similar mechanism of injury, and could be further evaluated with ultrasound or MRA. A repeat EMG should be considered in approximately six weeks depending on the exam and clinical course. Continue PT and OT with supervision from physiatry as needed. Possible repeat MRI with contrast in 10 - 14 days if any increase in symptoms or sign of infection. Prior culture results and issue with left calf abscess noted. (Zacarias Garay MD) Aleksandar Ricketts Jul 06, 2017 16:53 Zacarias Garay MD Jul 09, 2017 02:08
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
--- NOTE | 2017-07-06 17:22 | PD.OP ---
cc: Roshan Torres MD Operative Report Date of Surgery: Jul 06, 2017 Preoperative Diagnosis: (1) Abscess of calf Postoperative Diagnosis: Same Procedure: Incision and drainage of left calf abscess Anesthesia: Local Surgeon: Dr. Brian CARRIZALES Gasfitter(s): Petra TRACEY Operation and Findings: The left calf was cleaned with Betadine prep sticks 3. Wheals of local anesthetic was placed around the lesion. A #11 scalpel was used to open the incision. Approximately 5 cc of thick purulent drainage was drained from the incision site. The cavity was then cleansed thoroughly with normal saline. Quarter-inch iodoform packing was placed into the wound and the wound was covered with a dry gauze and wrapped with a wrap gauze. The patient tolerated the procedure without any complications. Estimated blood loss was less than 5 cc. Petra Fay Jul 06, 2017 17:22
--- NOTE | 2017-07-06 19:23 | RADRPT ---
EXAM DATE/TIME: 07/06/2017 18:42 [facility] COMPARISON: MRI HIP RIGHT W & W/O CONTRAST, June 07, 2017, 12:14. HIP RIGHT (AP&LAT 2/3VWS) W AP PELVIS, July 04, 2017, 8:25. INDICATIONS : Fracture. Injury 1 month ago. MEDICAL HISTORY : Methicillin-resistant Staphylococcus aureus. SURGICAL HISTORY : Abdominal surgery. Needle biopsy and SI joint injection. ENCOUNTER: Subsequent ACUITY: 1 month PAIN SCORE: 3/10 LOCATION: pelvis. TECHNIQUE: Multiplanar, multisequence magnetic resonance imaging of the pelvis was performed. FINDINGS: There is new abnormal increased T2 and decreased T1 signal within the right iliac bone and adjacent s acrum surrounding the right sacroiliac joint. There is no significant fluid within the joint space. N o osseous destruction is appreciated. The left sacroiliac joint has a normal appearance. Remaining jennifer ne marrow signal is within normal limits. No fracture is identified. Visualized soft tissue pelvic structures demonstrate a normal appearance. CONCLUSION: Edema within both the iliac bone and sacrum surrounding the right sacroiliac joint. Findings are diag nostic of right sacroiliitis. This is secondary to nonspecific process. Inflammatory and infectious p rocesses should be considered. No fracture is identified. Kaleb Rubio MD on July 06, 2017 at 19:16 Board Certified Radiologist. This report was verified electronically.
[2017-07-06 20:00] VITALS: BP 140/73; PULSE 78; RESP 18; TEMP 97.6; O2SAT 98
[2017-07-07] VITALS (8 sets, daily range): BP systolic 120–135; BP diastolic 60–89; PULSE 60–105; RESP 16–20; TEMP 97.3–98.7; O2SAT 96–100
[2017-07-07] MEDS: oxyCODONE/ACETAMINOPHEN 7.5 MG/325 MG TAB PO PRN ×3 (03:36→19:41)
[2017-07-07] MEDS: HYDROmorphone HCL PF 1 MG/ML VIAL IV PUSH PRN ×5 (04:16→20:36)
[2017-07-07] MEDS: CARISOPRODOL 350 MG TAB PO PRN ×3 (07:26→23:35)
[2017-07-07] MEDS: clonazePAM 1 MG TAB PO PRN ×3 (07:26→23:35)
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
[2017-07-07] MEDS: GABAPENTIN 300 MG CAP PO SCH ×3 (09:00→17:15)
[2017-07-07] MEDS: REMOVE OLD NICODERM (NICOTINE) PATCH T-DERMAL SCH (09:00)
[2017-07-07] MEDS: SULFAMETHOXAZOLE-TRIMETHOPRIM DS 800-160 MG TAB PO SCH ×2 (09:00→20:36)
[2017-07-07] MEDS: SODIUM CHLORIDE 0.9% FLUSH 10 ML FLUSH IV FLUSH SCH ×2 (09:01→20:36)
[2017-07-07] MEDS: FAMOTIDINE 20 MG TAB PO SCH ×2 (09:01→20:36)
[2017-07-07] MEDS: NICOTINE 14 MG/24 HR PATCH T-DERMAL SCH (09:04)
[2017-07-07] MEDS: LIDOCAINE HCL 5% PATCH T-DERMAL SCH (09:08)
[2017-07-07] MEDS: REMOVE OLD PATCH T-DERMAL SCH (09:08)
--- NOTE | 2017-07-07 09:35 | HHI.PR ---
Subjective Remarks Follow up for back pain, weakness, muscle spasms, sacroilitis, MRSA abscess on the left leg. Patient reports persistent pain, right leg weakness and right leg tremors. No fever, chills. Orthopedic surgery evaluated patient yesterday. Objective Vitals Vital Signs Date Time Temp Pulse Resp B/P (MAP) Pulse Ox O2 Delivery O2 Flow Rate FiO2 07/07/17 08:01 97.3 60 18 132/75 (94) 100 07/07/17 04:16 98.7 81 18 123/74 (90) 98 07/07/17 00:00 97.8 64 18 121/60 (80) 97 07/06/17 20:00 97.6 78 18 140/73 (95) 98 07/06/17 16:24 97.7 88 20 158/75 (102) 97 07/06/17 12:05 97.8 88 20 145/80 (101) 99 I/O 07/06/17 07/06/17 07/06/17 07/07/17 07/07/17 07/07/17 06:59 14:59 22:59 06:59 14:59 22:59 Intake Total 480 ml Output Total 900 ml Balance 480 ml -900 ml Intake Oral 480 ml Output Urine Total 900 ml # Voids 3 Result Diagram: 07/04/17 0350 07/04/17 0350 Imaging Last Impressions Pelvis MRI 07/06/17 0000 Signed Impressions: Service Date/Time: Thursday, July 06, 2017 18:42 - CONCLUSION: Edema within both the iliac bone and sacrum surrounding the right sacroiliac joint. Findings are diagnostic of right sacroiliitis. This is secondary to nonspecific process. Inflammatory and infectious processes should be considered. No fracture is identified. Kaleb Rubio MD Facet Joint Injection X-Ray 07/05/17 0000 Signed Impressions: Service Date/Time: Wednesday, July 05, 2017 14:22 - CONCLUSION: Uncomplicated fluoroscopically guided right sacroiliac joint injection as above. Stephen Best Jr., MD Hip and Pelvis X-Ray 07/04/17 0000 Signed Impressions: Service Date/Time: Tuesday, July 04, 2017 08:25 - CONCLUSION: No acute fracture. Justo Mayen MD Needle Biopsy X-Ray 07/02/17 0000 Signed Impressions: Service Date/Time: Sunday, July 02, 2017 14:21 - CONCLUSION: Uncomplicated needle biopsy/aspiration of the right sacroiliac joint. Gus Cheng MD Hip MRI 07/01/17 0000 Signed Impressions: Service Date/Time: June 10:39 - CONCLUSION: 1. Significant edema around the right sacroiliac joint correlate for inflammatory arthritis. 2. Soft tissue edema overlying the hip. Mild edema at the origin of the vastus lateralis muscle Quinton Marte MD Brain MRI 07/01/17 0000 Signed Impressions: Service Date/Time: June 10:39 - CONCLUSION: Normal examination. Stephen Best Jr., MD Thoracic Spine MRI 06/26/17 0000 Signed Impressions: Service Date/Time: Monday, June 26, 2017 00:41 - CONCLUSION: 1. Tiny right paracentral protrusion at T10-11 without canal stenosis. 2. Small right paracentral protrusion at T11-12 without canal stenosis. 3. No compression fracture or spondylolisthesis. Justo Mayen MD Lumbar Spine MRI 06/26/17 0000 Signed Impressions: Service Date/Time: Monday, June 26, 2017 00:41 - CONCLUSION: 1. Minimal broad-based disc bulges at L3-4 and L4-5 levels without stenosis. 2. Mild broad-based protrusion more such the left at L5-S1. Justo Mayen MD Objective Remarks GENERAL: AOX3 NAD. SKIN: Warm and dry. HEAD: Normocephalic. EYES: No scleral icterus. No injection or drainage. NECK: Supple, trachea midline. No JVD or lymphadenopathy. CARDIOVASCULAR: Regular rate and rhythm without murmurs, gallops, or rubs. RESPIRATORY: Breath sounds equal bilaterally. No accessory muscle use. GASTROINTESTINAL: Abdomen soft, non-tender, nondistended. MUSCULOSKELETAL: No cyanosis, or edema. Unable to move right leg - strength 1/ 5. Left leg 5/5 BACK: Nontender without obvious deformity. No CVA tenderness. Procedures 07/02/2017 Aspiration biopsy of right SI joint by IR 07/05/2017 Steroid injection to right SI joint by IR A/P Problem List: (1) Intractable back pain ICD Code: M54.9 - Dorsalgia, unspecified Status: Acute (2) Gait instability ICD Code: R26.81 - Unsteadiness on feet Status: Acute (3) Leukocytosis ICD Code: D72.829 - Elevated white blood cell count, unspecified Status: Acute Assessment and Plan 21-year-old male with PMH of Asthma and recent admission for right sciatic pain who presented with complaints of continued severe right sided sciatic pain Intractable Back Pain: recent admit 06/05-06/09/17 for similar complaints following fall while skateboarding. Presented complaining of persistent pain. Reviewed: On previous admission patient had MRI of the entire spine and right hip. Spinal MRI showed tiny right paracentral protrusion at T10-11 and T11-12 w / no canal stenosis, minimal broad based disc bulges at L3-4 and L4-5 without stenosis. Hip MRI showed no evidence of occult fracture, minimal edema in the subcutaneous tissue right hip most prominent in the greater trochanteric bursa, no pathologic joint effusion. Patient had repeat thoracic and lumbar spine MRI in the ED with no acute changes from previous. -Previously evaluated by neurosurgery who recommended no surgical intervention -Gabapentin increased to 600 mg 3 times daily on 06/28 -Patient reports his pain is mostly from intermittent muscle spasms. Changed tizanidine to Soma, -Continue Lidoderm patch daily -Continue PT -Brain MRI unremarkable. -Continue Acetaminophen for pain 1-4, Percocet 7.5 for pain 5-10, Dilaudid 1mg PRN for breakthrough. -Discussed with patient regarding reducing pain medications. We could consider long acting morphine and reduce or discontinue IV pain meds. - Right sacroilitis - Patient's symptoms are likely due to sacroiliitis and surrounding edema noticed on repeat hip MRI. - Biopsy was done and gram stain so far negative. - intra-articular steroid injection by IR on 07/05/2017. - We will request an Orthopedic surgery consult. Right lower extremity weakness: Imaging as above. Consulted neurology, D/W Dr. Thomas, symptoms seem related to right lumbosacral plexus injury, would benefit from an EMG, symptoms will probably take a few months to heal. Discussed with radiology, no significant abnormalities regarding lumbosacral plexus on MRIs. 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 No evidence of denervation potentials on EMG. EMG showed some muscle spasm and decrease recruitment at times due to pain. - Neurology consulted --> NCV/EMG results does not correlate with symptoms, requests outpatient f/up with him in 1 week Gait Instability: secondary to above, imaging w/ no clear etiology. Continue daily PT. Case management consulted to assist with continued outpatient PT at discharge. Cellulitis/Abscesses of the left lower ext. - Cx grew MRSA. General surgery performed I&D. - ID following. Anxiety - Increased Clonazepam 2mg Q8hrs. Full code. DVT Prophylaxis SCDs. Discussed with RN. Cynthia Stockton DO Jul 07, 2017 09:35
--- NOTE | 2017-07-07 11:37 | HHI.PR ---
Subjective Subjective Notes Resting in bed RN at bedside No issues overnight Objective Vitals/I&O Vital Signs Date Time Temp Pulse Resp B/P (MAP) Pulse Ox O2 Delivery O2 Flow Rate FiO2 07/07/17 08:01 97.3 60 18 132/75 (94) 100 Labs Date/Time Source Procedure Growth Status 07/02/17 14:45 Fluid Other Gram Stain - Final Complete 07/02/17 14:45 Fluid Other Body Fluid Culture - Final NO GROWTH IN 72 HRS.--AEROBICALLY OR ... Complete 06/27/17 16:50 Wound Leg Gram Stain - Final Complete 06/27/17 16:50 Wound Culture - Final S. Aureus Mrsa Complete Cardiovascular: Regular Lungs: Clear Abdomen: Non-distended, Non-tender Extremities: Other (see below ) Narrative Exam LEFT calf abscess: packing removed; minimal purulent drainage; wound cleaned with NS and replaced packing A/P Assessment and Plan 21 year old male with LEFT calf abscess -s/p bedside I&D -Packing BID -Okay to shower inbetween dressing changes -Regular diet -Pain control -ID following for antibiotics Attending Statement The exam, history, and the medical decision-making described in the above note were completed with the assistance of the mid-level provider. I reviewed and agree with the findings presented. I attest that I had a [id number] encounter with the patient on the same day, and personally performed and documented my assessment and findings in the medical record. Petra Fay Jul 07, 2017 11:37 Roshan Torres MD Jul 07, 2017 16:51
--- NOTE | 2017-07-07 13:42 | PD.ORT.PN ---
Subjective Subjective Remarks The patient continues to complain of severe pain around the right sacroiliac joint region. He says that the previous injection only gave him mild relief in that he feels like he has a little more strength but he continues to have significant pain. Objective Vitals Vital Signs Date Time Temp Pulse Resp B/P (MAP) Pulse Ox O2 Delivery O2 Flow Rate FiO2 07/07/17 12:53 97.6 86 20 131/78 (95) 98 07/07/17 12:51 16 07/07/17 08:01 97.3 60 18 132/75 (94) 100 07/07/17 04:16 98.7 81 18 123/74 (90) 98 07/07/17 00:00 97.8 64 18 121/60 (80) 97 07/06/17 20:00 97.6 78 18 140/73 (95) 98 07/06/17 16:24 97.7 88 20 158/75 (102) 97 I/O 07/06/17 07/06/17 07/06/17 07/07/17 07/07/17 07/07/17 07:00 15:00 23:00 07:00 15:00 23:00 Intake Total 480 ml Output Total 900 ml Balance 480 ml -900 ml Intake Oral 480 ml Output Urine Total 900 ml # Voids 3 Result Diagram: 07/04/17 03507/04/17349 Imaging MRI of the pelvis is reviewed along with the report. There is significant inflammation of the right sacroiliac joint especially anteriorly with edema on both sides of the joint. Portion of the right hip joint was unremarkable. Objective Remarks The patient is quite anxious sitting in the chair and is on verge of tears due to pain. He seems very uncomfortable in the sitting position. He has some shaking of the extremities even at rest. He refuses to perform much in the way of motion about the right leg or right toes. He has tenderness around the right posterior pelvic region. Assessment & Plan Assessment and Plan Right-sided sacroiliitis. I reviewed the results of the MRI with the patient in detail. It seems that a good portion if not all of the patient's symptoms are being referred from this right sacral ilitis. There has been a previous aspiration which did show an infectious etiology of staph hominis (although according to notes this was considered to be a contaminant). The patient has also had a steroid injection into this area with minimal improvement. I am still concerned about the possibility of there being an infectious etiology to his sacroiliitis. I would recommend to have neurosurgery formally evaluate this area. Management of this type of problem in this portion of the spine and pelvis is not within the scope of my practice. I have a call out to the patient's admitting physician to review my findings and recommendations. Please reconsult as necessary. Corey Mclain MD Jul 07, 2017 13:42
--- NOTE | 2017-07-07 19:36 | HHI.IDPN ---
Subjective Subjective Remarks delaeyed entry, pt was seen earlier today states his RLE strengh is better, but pain is worse ESR mildly up no mfever s/p bedside I+D of L calf abscess MRI of pelvis showing edema within both the iliac bone and sacrum surrounding the right sacroiliac joint, diagnostic of right sacroiliitis, inflammatory vs infectious Antibiotics po bactrim Allergies: Coded Allergies: No Known Allergies (Unverified , 06/25/17) Objective . Vital Signs Date Time Temp Pulse Resp B/P (MAP) Pulse Ox O2 Delivery O2 Flow Rate FiO2 07/07/17 16:25 97.7 72 20 135/77 (96) 99 07/07/17 12:53 97.6 86 20 131/78 (95) 98 07/07/17 12:51 16 07/07/17 08:01 97.3 60 18 132/75 (94) 100 07/07/17 04:16 98.7 81 18 123/74 (90) 98 07/07/17 00:00 97.8 64 18 121/60 (80) 97 07/06/17 20:00 97.6 78 18 140/73 (95) 98 07/07/17 07/07/17 07/08/17 15:00 23:00 07:00 Intake Total 240 ml Balance 240 ml Intake Oral 240 ml # Voids 2 # Bowel Movements 1 . Laboratory Tests Test 07/06/17 03:59 Erythrocyte Sedimentation Rate 30 mm/hr Imaging Last Impressions Pelvis MRI 07/06/17 0000 Signed Impressions: Service Date/Time: Thursday, July 06, 2017 18:42 - CONCLUSION: Edema within both the iliac bone and sacrum surrounding the right sacroiliac joint. Findings are diagnostic of right sacroiliitis. This is secondary to nonspecific process. Inflammatory and infectious processes should be considered. No fracture is identified. Kaleb Rubio MD Facet Joint Injection X-Ray 07/05/17 0000 Signed Impressions: Service Date/Time: Wednesday, July 05, 2017 14:22 - CONCLUSION: Uncomplicated fluoroscopically guided right sacroiliac joint injection as above. Stephen Best Jr., MD Hip and Pelvis X-Ray 07/04/17 0000 Signed Impressions: Service Date/Time: Tuesday, July 04, 2017 08:25 - CONCLUSION: No acute fracture. Justo Mayen MD Needle Biopsy X-Ray 07/02/17 0000 Signed Impressions: Service Date/Time: Sunday, July 02, 2017 14:21 - CONCLUSION: Uncomplicated needle biopsy/aspiration of the right sacroiliac joint. Gus Cheng MD Hip MRI 07/01/17 0000 Signed Impressions: Service Date/Time: June 10:39 - CONCLUSION: 1. Significant edema around the right sacroiliac joint correlate for inflammatory arthritis. 2. Soft tissue edema overlying the hip. Mild edema at the origin of the vastus lateralis muscle Quinton Marte MD Brain MRI 07/01/17 0000 Signed Impressions: Service Date/Time: June 10:39 - CONCLUSION: Normal examination. Stephen Best Jr., MD Thoracic Spine MRI 06/26/17 0000 Signed Impressions: Service Date/Time: Monday, June 26, 2017 00:41 - CONCLUSION: 1. Tiny right paracentral protrusion at T10-11 without canal stenosis. 2. Small right paracentral protrusion at T11-12 without canal stenosis. 3. No compression fracture or spondylolisthesis. Justo Mayen MD Lumbar Spine MRI 06/26/17 0000 Signed Impressions: Service Date/Time: Monday, June 26, 2017 00:41 - CONCLUSION: 1. Minimal broad-based disc bulges at L3-4 and L4-5 levels without stenosis. 2. Mild broad-based protrusion more such the left at L5-S1. Justo Mayen MD Physical Exam CONSTITUTIONAL/GENERAL: This is an adequately nourished patient, in no apparent distress. TUBES/LINES/DRAINS: SKIN: No jaundice, rashes, Skin temperature appropriate. Not diaphoretic. L calpf with dressing in suzette ce , intact R thigh lesion looks likel involution of small abscess, no active drainage CARDIOVASCULAR: Regular rate and rhythm without murmurs, gallops, or rubs. No JVD. Peripheral pulses symmetric. RESPIRATORY/CHEST: Symmetric, unlabored respirations. Clear to auscultation. Breath sounds equal bilaterally. No wheezes, rales, or rhonchi. GASTROINTESTINAL: Abdomen soft, non-tender, nondistended. No hepato-splenomegaly , or palpable masses. No guarding. Bowel sounds present. GENITOURINARY: Without palpable bladder distension. MUSCULOSKELETAL: Extremities without clubbing, cyanosis, or edema. No joint tenderness or effusion noted. No calf tenderness. No mottling or clubbing. BACK: severe tenderness to palpation over R lower lumbar area and over R SI joint , no skin chages noted NEUROLOGICAL: Awake and alert. Motor and sensory grossly within normal limits. Follows commands. Cognitively sharp. Moves all extremities. Decresed ROM in RLE 2/2 pain PSYCHIATRIC: No obvious anxiety/depression. no apparent hallucinations or other psychotic thought process. Assessment & Plan Remarks Right sacroilitis, post traumatic. Infection is doubtful, more likely contamination, 1/2 + clx and not a typical organism, however cannot completely exclusde inrfection - ESR low - MRI can not differentiaate infectious vs non infectious ethiology - staph homionis is a common skin contaminant and unlikely but not completely impossible ethiology right lumbosacral plexus injury with right lower extremity weakness: - neurology ff L calf MRSA abscess sp I+D cont Bactrim dc keflex - chk ESR needs more clx - consider re-aspirate dw Dr Mahin Sheehan,Hailee Jean MD Jul 07, 2017 19:36
--- NOTE | 2017-07-07 22:50 | RADRPT ---
EXAM DATE/TIME: 07/07/2017 21:44 [facility] COMPARISON: No previous studies available for comparison. INDICATIONS : Patient fell 1 month ago, increased pain right hip. RADIATION DOSE: 16.09 CTDIvol (mGy) MEDICAL HISTORY : None SURGICAL HISTORY : None. ENCOUNTER: Subsequent ACUITY: 1 month PAIN SCALE: 6/10 LOCATION: Right hip TECHNIQUE: Volumetric scanning of the hip was performed. Using automated exposure control and adjustment of the mA and/or kV according to patient size, radiation dose was kept as low as reasonably achievable to o btain optimal diagnostic quality images. DICOM format image data is available electronically for rev iew and comparison. FINDINGS: BONES: No evidence of fracture. Alignment is within normal limits. JOINTS: No evidence of joint narrowing or effusion. SOFT TISSUES: Muscles, tendons and neurovascular structures are grossly unremarkable. No evidence of mass, organize d fluid collection, or foreign body. CONCLUSION: 1. No acute findings. Stephan Abad MD on July 07, 2017 at 22:44 Board Certified Radiologist. This report was verified electronically.
--- NOTE | 2017-07-07 22:52 | RADRPT ---
EXAM DATE/TIME: 07/07/2017 21:55 [facility] COMPARISON: No previous studies available for comparison. INDICATIONS : Patient fell 1 month ago, increased pain right knee. RADIATION DOSE: 13.74 CTDIvol (mGy) MEDICAL HISTORY : None SURGICAL HISTORY : None. ENCOUNTER: Subsequent ACUITY: 1 month PAIN SCALE: 6/10 LOCATION: Right knee TECHNIQUE: Volumetric scanning of the knee was performed. Using automated exposure control and adjustment of th e mA and/or kV according to patient size, radiation dose was kept as low as reasonably achievable to obtain optimal diagnostic quality images. DICOM format image data is available electronically for re view and comparison. FINDINGS: BONES: No evidence of fracture. Alignment is within normal limits. JOINTS: No evidence of joint narrowing or effusion. SOFT TISSUES: Muscles, tendons and neurovascular structures are grossly unremarkable. No evidence of mass, organize d fluid collection, or foreign body. CONCLUSION: 1. No acute findings. Stephan Abad MD on July 07, 2017 at 22:48 Board Certified Radiologist. This report was verified electronically.
[2017-07-08] MEDS: oxyCODONE/ACETAMINOPHEN 7.5 MG/325 MG TAB PO PRN ×2 (01:20→08:35)
[2017-07-08] MEDS: HYDROmorphone HCL PF 1 MG/ML VIAL IV PUSH PRN (02:27)
[2017-07-08 05:32] VITALS: BP 120/65; PULSE 82; RESP 18; TEMP 97.6; O2SAT 99
[2017-07-08] MEDS: CARISOPRODOL 350 MG TAB PO PRN ×2 (07:12→20:44)
[2017-07-08] MEDS: clonazePAM 1 MG TAB PO PRN ×2 (07:12→20:44)
[2017-07-08 08:00] VITALS: BP 116/59; PULSE 75; RESP 18; TEMP 97.6; O2SAT 99
[2017-07-08] MEDS: LIDOCAINE HCL 5% PATCH T-DERMAL SCH (08:34)
[2017-07-08] MEDS: NICOTINE 14 MG/24 HR PATCH T-DERMAL SCH (08:34)
[2017-07-08] MEDS: REMOVE OLD NICODERM (NICOTINE) PATCH T-DERMAL SCH (08:35)
[2017-07-08] MEDS: SULFAMETHOXAZOLE-TRIMETHOPRIM DS 800-160 MG TAB PO SCH ×2 (08:35→20:44)
[2017-07-08] MEDS: FAMOTIDINE 20 MG TAB PO SCH ×2 (08:35→20:44)
[2017-07-08] MEDS: GABAPENTIN 300 MG CAP PO SCH ×3 (08:35→18:32)
[2017-07-08] MEDS: REMOVE OLD PATCH T-DERMAL SCH (08:36)
[2017-07-08] MEDS: SODIUM CHLORIDE 0.9% FLUSH 10 ML FLUSH IV FLUSH SCH ×2 (08:36→20:44)
--- NOTE | 2017-07-08 08:55 | HHI.PR ---
Subjective Remarks f/u pain still with severe pain from R hip shooting down to R foot, also with weakness RLE, no fever overnight, crying in pain. Objective Vitals Vital Signs Date Time Temp Pulse Resp B/P (MAP) Pulse Ox O2 Delivery O2 Flow Rate FiO2 07/08/17 08:00 97.6 75 18 116/59 (78) 99 07/08/17 05:32 97.6 82 18 120/65 (83) 99 07/07/17 23:43 97.9 68 18 120/73 (89) 96 07/07/17 21:00 97.6 88 16 132/78 (96) 96 07/07/17 19:52 97.5 105 18 133/89 (104) 97 07/07/17 16:25 97.7 72 20 135/77 (96) 99 07/07/17 12:53 97.6 86 20 131/78 (95) 98 07/07/17 12:51 16 I/O 07/07/17 07/07/17 07/07/17 07/08/17 07/08/17 07/08/17 07:00 15:00 23:00 07:00 15:00 23:00 Intake Total 240 ml Output Total 900 ml 500 ml Balance -900 ml 240 ml -500 ml Intake Oral 240 ml Output Urine Total 900 ml 500 ml # Voids 2 # Bowel Movements 1 Result Diagram: 07/04/17 0350 07/04/17 0350 Objective Remarks GENERAL: AOX3 NAD. SKIN: Warm and dry. HEAD: Normocephalic. EYES: No scleral icterus. No injection or drainage. CARDIOVASCULAR: Regular rate and rhythm without murmurs, gallops, or rubs. RESPIRATORY: Breath sounds equal bilaterally. No accessory muscle use. GASTROINTESTINAL: Abdomen soft, non-tender, nondistended. MUSCULOSKELETAL: No cyanosis, or edema. RLE 3/5 partly secondary to breakthrough pain, Left leg 5/5 , decreased touch sensation on the RLE, no clonus or babinski Alert, awake, oriented 3. Procedures 07/02/2017 Aspiration biopsy of right SI joint by IR 07/05/2017 Steroid injection to right SI joint by IR 07/08 Bedside L leg I&D A/P Problem List: (1) Intractable back pain ICD Code: M54.9 - Dorsalgia, unspecified Status: Acute (2) Gait instability ICD Code: R26.81 - Unsteadiness on feet Status: Acute (3) Leukocytosis ICD Code: D72.829 - Elevated white blood cell count, unspecified Status: Acute Assessment and Plan 21-year-old male with PMH of Asthma and recent admission for right sciatic pain who presented with complaints of continued severe right sided sciatic pain Intractable Back Pain: recent admit 06/05-06/09/17 for similar complaints following fall while skateboarding. Presented complaining of persistent pain. Spinal MRI showed tiny right paracentral protrusion at T10-11 and T11-12 w/ no canal stenosis, minimal broad based disc bulges at L3-4 and L4-5 without stenosis. Hip MRI showed no evidence of occult fracture, minimal edema in the subcutaneous tissue right hip most prominent in the greater trochanteric bursa, no pathologic joint effusion. Patient had repeat thoracic and lumbar spine MRI in the ED with no acute changes from previous. Brain MRI unremarkable. -Previously evaluated by neurosurgery who recommended no surgical intervention. - on gabapentin, lidoderm patch and soma for muscles spasms, cont PT daily, discussed extensively with the patient today, stop intravenous Dilaudid, start long-acting morphine, intravenously for breakthrough pain. Continue Percocet. Dr. Garay on vacation, when comes back, we will request him to re-evaluate this patient, especially with regards to right SI joint. Right sacroilitis - Patient's symptoms are likely due to sacroiliitis and surrounding edema noticed on repeat hip MRI. Biopsy was done and gram stain so far negative. s/p intra-articular steroid injection by IR on 07/05/2017. Orthopedics consulted, per Dr. Mclain, SI joint microbiology finding maybe a concern for a true infectious process. He would not recommend repeat intra-articular steroid injection at this point. On Bactrim for wound with MRSA, joint aspirate growing Staphylococcus hominis, will speak with infectious disease. Discussed with RN. Right lower extremity weakness: Imaging as above. Consulted neurology, D/W Dr. Thomas, symptoms seem related to right lumbosacral plexus injury, NCV/EMG done. 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 No evidence of denervation potentials on EMG. EMG showed some muscle spasm and decrease recruitment at times due to pain. Discussed with radiology, no significant abnormalities regarding lumbosacral plexus on MRIs. Gait Instability: secondary to above, imaging w/ no clear etiology. Continue daily PT. Case management consulted to assist with continued outpatient PT at discharge. Cellulitis/Abscesses of the left calf-culture grew MRSA, status post IND, on Bactrim. Anxiety -Clonazepam 2mg Q8hrs. taper as needed Full code. DVT Prophylaxis SCDs. Discharge Planning Discharge when medically ready. Lata Collado MD Jul 08, 2017 08:55
[2017-07-08] MEDS ORDERED: HYDROmorphone HCL PF 1 MG/ML VIAL IV PUSH ONE (09:45)
[2017-07-08] MEDS: MORPHINE SULFATE 15 MG CONTROLLED RELEASE TAB PO SCH ×2 (10:44→22:17)
--- NOTE | 2017-07-08 11:03 | HHI.NSPN ---
(Aleksandar Ricketts) History Chief Complaint: Right buttock and back pain. (Aleksandar Ricketts) Interval History 07/06: The patient is seen as he is being evaluated by Orthopaedic Surgery. He complains of pain to the right buttock and the back, especially to the right lateral region. He also has weakness to the right lower extremity. The patient had a steroid injection yesterday by Interventional Radiology which does not seem to have helped with the pain. 07/08: The patient is awake and alert eating and visiting with a friend. He reports that he feel yesterday and that CTs were done which were unremarkable for any acute findings. He did have an MRI of the pelvis on which demonstrated findings consistent with right sacroiliitis. (Aleksandar Ricketts) System Review Comments Back: Patient complains of pain to the low back, especially to the right lateral. Extremities: Patient complains of pain to the right buttock and hip and the right knee. He denies any other pain to the extremities. Neurological: Patient complains of weakness and numbness to the right lower extremity. He denies any weakness to the left lower or either upper extremity. (Aleksandar Ricketts) Exam Results Vital Signs Date Time Temp Pulse Resp B/P (MAP) Pulse Ox O2 Delivery O2 Flow Rate FiO2 07/08/17 08:00 97.6 75 18 116/59 (78) 99 (Aleksandar Ricketts) Physical Examination General: The patient is awake & alert. He readily interacts. His affect is normal. He appears moderately to severely uncomfortable as the RLE is evaluated due to pain. Skin: Warm & dry. There is an intact dressing to the left lateral calf. Otherwise there are no rashes, ulcerations or lesions. Back: The midline lumbosacral spine is TTP. As the right back is palpated laterally from the spine it becomes increasingly tender. Extremities: He is tender to palpation of the right buttock. Neurological: AAOx3. Speech clear & appropriate. Follows simple commands w/o difficulty. Sensation decreased to from mid right lateral lower leg down to the foot, otherwise intact to lower extremities. Motor strength 4+ to5/5 LLE. Motor strength RLE: hip flexion 4/5, ankle extension & flexion 3+/5, plantar flexion 3/5. (Aleksandar Ricketts) Lab, Micro, Other Results Recent Impressions Lower Extremity CT 07/07/17 0000 Signed Impressions: Service Date/Time: Friday, July 07, 2017 21:55 - CONCLUSION: 1. No acute findings. Stephan Abad MD Lower Extremity CT 07/07/17 0000 Signed Impressions: Service Date/Time: Friday, July 07, 2017 21:44 - CONCLUSION: 1. No acute findings. Stephan Abad MD Pelvis MRI 07/06/17 0000 Signed Impressions: Service Date/Time: Thursday, July 06, 2017 18:42 - CONCLUSION: Edema within both the iliac bone and sacrum surrounding the right sacroiliac joint. Findings are diagnostic of right sacroiliitis. This is secondary to nonspecific process. Inflammatory and infectious processes should be considered. No fracture is identified. Kaleb Rubio MD 07/06/17 07/06/17 07/07/17 07/07/17 07/08/17 07/08/17 05:59 17:59 05:59 17:59 05:59 17:59 Intake Total 480 ml 240 ml Output Total 900 ml 500 ml Balance 480 ml -900 ml 240 ml -500 ml Intake Oral 480 ml 240 ml Output Urine Total 900 ml 500 ml # Voids 3 2 # Bowel Movements 1 Laboratory Tests Test 07/06/17 03:59 Erythrocyte Sedimentation Rate 30 mm/hr Vital Signs Date Time Temp Pulse Resp B/P (MAP) Pulse Ox O2 Delivery O2 Flow Rate FiO2 07/08/17 08:00 97.6 75 18 116/59 (78) 99 07/08/17 05:32 97.6 82 18 120/65 (83) 99 07/07/17 23:43 97.9 68 18 120/73 (89) 96 07/07/17 21:00 97.6 88 16 132/78 (96) 96 07/07/17 19:52 97.5 105 18 133/89 (104) 97 07/07/17 16:25 97.7 72 20 135/77 (96) 99 07/07/17 12:53 97.6 86 20 131/78 (95) 98 07/07/17 12:51 16 07/07/17 08:01 97.3 60 18 132/75 (94) 100 07/07/17 04:16 98.7 81 18 123/74 (90) 98 07/07/17 00:00 97.8 64 18 121/60 (80) 97 07/06/17 20:00 97.6 78 18 140/73 (95) 98 07/06/17 16:24 97.7 88 20 158/75 (102) 97 07/06/17 12:05 97.8 88 20 145/80 (101) 99 07/06/17 08:09 98.0 81 20 127/58 (81) 97 07/06/17 05:59 97.9 82 18 132/74 (93) 98 07/06/17 00:00 97.2 98 18 136/80 (98) 97 07/05/17 20:00 97.4 109 18 134/82 (99) 97 07/05/17 16:06 98.0 108 18 118/75 (89) 100 07/05/17 12:16 98.6 101 18 135/75 (95) 98 (Aleksandar Ricketts) Medical Decision Making Impression and Plan Impression: Intractable back pain Intractable right buttock/hip pain Right lower extremity weakness Gait instability MRI pelvis demonstrates edema w/i the iliac bone and sacrum surrounding the right sacroiliac joint and is diagnostic of right sacroiliitis. No fracture noted. CT lower extremity () right knee & right hip w/o any acute findings. Patient continues w/pain to the right lumbosacral region and buttock, persistent weakness to RLE and persistent decreased sensation distal RLE. Differential diagnoses: Sciatic nerve contusion Inferior gluteal artery pseudoaneurysm (Can J Surgery. 1983 Nov: 26(6): 554-5.) Gluteal compartment syndrome (not supported by MRI) Post traumatic piriformis syndrome (J Bone Joint Surgery Am, 1998 Kt: 81(7): 941-9.) Plan: Consider MRA vs US for evaluation of possible pseudoaneurysm Consider sciatic nerve diffusion tensor imaging to detect possible nerve damage Consider botox injection. The above differential diagnoses and plan was discussed with Dr Garay on at 1107. (Aleksandar Ricketts) Attending Statement The exam, history, and the medical decision-making described in the above note were completed with the assistance of the mid-level provider. I reviewed and agree with the findings presented. I attest that I had a [id number] encounter with the patient on the same day, and personally performed and documented my assessment and findings in the medical record. Patient will continue significant gluteal pain radiating primarily into posterior thigh. Multiple potential etiologies including as noted above. Continue therapy Consider ultrasound gluteal artery (Zacarias Garay MD) Aleksandar Ricketts Jul 08, 2017 11:03 Zacarias Garay MD Aug 23, 2017 07:24
[2017-07-08 12:00] VITALS: BP 120/72; PULSE 87; RESP 16; TEMP 97.7; O2SAT 97
[2017-07-08] MEDS: oxyCODONE/ACETAMINOPHEN 10 MG/325 MG TAB PO PRN (14:07)
[2017-07-08 16:00] VITALS: BP 114/63; PULSE 91; RESP 16; TEMP 98.4; O2SAT 98
[2017-07-08] MEDS ORDERED: LIDOCAINE HCL 1% 20 ML VIAL ONE (16:03)
--- NOTE | 2017-07-08 17:38 | PD.RAD ---
Post CT Procedure Prog Note Pre Procedure Diagnosis: (1) Sciatica of right side (2) Intractable back pain (3) Leukocytosis Post Procedure Diagnosis: (1) Intractable back pain (2) Leukocytosis (3) Sciatica of right side Procedure Date: Jul 08, 2017 Supervising Radiologist: Constantino Vasquez Plan of Activity Patient to Unit: Nursing Unit Patient Condition: Good Additional Comments: right SI joint aspiration See PACS Report for procedural detail/treatment Constantino Vasquez MD Jul 08, 2017 17:38
[2017-07-08 20:00] VITALS: BP 138/63; PULSE 79; RESP 18; TEMP 98.1; O2SAT 95
[2017-07-09] VITALS: BP 125/60; PULSE 80; RESP 16; TEMP 98.4; O2SAT 97
[2017-07-09 04:00] VITALS: BP 131/69; PULSE 74; RESP 18; TEMP 97.4; O2SAT 98
[2017-07-09] MEDS: oxyCODONE/ACETAMINOPHEN 10 MG/325 MG TAB PO PRN ×3 (04:09→20:37)
[2017-07-09] MEDS: SULFAMETHOXAZOLE-TRIMETHOPRIM DS 800-160 MG TAB PO SCH ×2 (07:51→20:03)
[2017-07-09] MEDS: MORPHINE SULFATE 15 MG CONTROLLED RELEASE TAB PO SCH ×2 (07:51→20:03)
[2017-07-09] MEDS: FAMOTIDINE 20 MG TAB PO SCH ×2 (07:51→20:03)
[2017-07-09] MEDS: GABAPENTIN 300 MG CAP PO SCH ×3 (07:51→17:10)
[2017-07-09] MEDS: REMOVE OLD NICODERM (NICOTINE) PATCH T-DERMAL SCH (07:52)
[2017-07-09] MEDS: NICOTINE 14 MG/24 HR PATCH T-DERMAL SCH (07:52)
[2017-07-09] MEDS: LIDOCAINE HCL 5% PATCH T-DERMAL SCH (07:53)
[2017-07-09] MEDS: REMOVE OLD PATCH T-DERMAL SCH (07:56)
[2017-07-09] MEDS: SODIUM CHLORIDE 0.9% FLUSH 10 ML FLUSH IV FLUSH SCH ×2 (07:58→20:06)
[2017-07-09] MEDS: clonazePAM 1 MG TAB PO PRN ×2 (08:01→17:10)
--- NOTE | 2017-07-09 08:15 | RADRPT ---
EXAM DATE/TIME: 07/08/2017 16:57 [facility] COMPARISON: No previous studies available for comparison. INDICATIONS : History of suspected infectious sacroiliitis with aspiration yielding a possible skin contaminant. Th erefore, repeat aspiration attempt has been requested. DEVICE(S): 1.) 22 gauge Spinal needle Total volume of 5 cc of clear, red fluid was removed. MEDICAL HISTORY : Methicillin-resistant Staphylococcus aureus. Asthma. SURGICAL HISTORY : None. ENCOUNTER: Initial ACUITY: 1 week PAIN SCORE: 7/10 LOCATION: Right pelvis PROCEDURE : CT guided aspiration of the right sacroiliac joint The risks, benefits and alternatives to the procedure were explained and verbal and written consent w as obtained. Using automated exposure control and adjustment of the mA and/or kV according to patien t size, radiation dose was kept as low as reasonably achievable to obtain optimal diagnostic quality images. The site was prepped in sterile fashion. Full sterile technique was used, including cap, ma sk, sterile gloves and gown and a large sterile sheet. Hand hygiene and 2% chlorhexidine and/or beta dine/alcohol prep was utilized per protocol for cutaneous antisepsis. The skin and subcutaneous tiss ues were infiltrated with local anesthetic solution. DICOM format image data is available electronic ally for review and comparison. 21 gauge spinal needle was advanced into the right sacroiliac joint under careful CT guidance. Multip le aspiration attempts yielded small amount of serosanguineous fluid. Therefore, the joint was additi onally irrigated with nonbacteriostatic saline and entire sample submitted for laboratory analysis pe r request. CONCLUSION: 1. CT-guided right SI joint aspiration, as above. Constantino Vasquez MD on July 09, 2017 at 8:12 Board Certified Radiologist. This report was verified electronically.
[2017-07-09 08:56] VITALS: BP 133/68; PULSE 80; RESP 20; TEMP 97.1; O2SAT 100
--- NOTE | 2017-07-09 10:01 | HHI.PR ---
Subjective Subjective Notes Resting in bed Uneventful night Objective Vitals/I&O Vital Signs Date Time Temp Pulse Resp B/P (MAP) Pulse Ox O2 Delivery O2 Flow Rate FiO2 07/09/17 08:56 97.1 80 20 133/68 (89) 100 Labs Date/Time Source Procedure Growth Status 07/08/17 17:35 Fluid Other Fungal Smear Pending Received 07/08/17 17:35 Fluid Other Fungal Culture Pending Received 06/27/17 16:50 Wound Leg Gram Stain - Final Complete 06/27/17 16:50 Wound Culture - Final S. Aureus Mrsa Complete Cardiovascular: Regular Lungs: Clear Abdomen: Non-distended, Non-tender Extremities: Other (see below ) Narrative Exam LEFT calf abscess: packing removed; minimal purulent drainage; packing in place A/P Assessment and Plan 21 year old male with LEFT calf abscess -s/p bedside I&D -Packing BID -Okay to shower inbetween dressing changes -Regular diet -Pain control -ID following for antibiotics -GS will sign off; please continue dressing changes -Call with questions Attending Statement The exam, history, and the medical decision-making described in the above note were completed with the assistance of the mid-level provider. I reviewed and agree with the findings presented. Petra Fay Jul 09, 2017 10:01 Roshan Torres MD Jul 09, 2017 15:17
[2017-07-09] MEDS: CARISOPRODOL 350 MG TAB PO PRN (10:18)
[2017-07-09 12:02] VITALS: BP 137/67; PULSE 100; RESP 20; TEMP 98.2; O2SAT 97
[2017-07-09 17:03] VITALS: BP 135/78; PULSE 95; RESP 20; TEMP 98.4; O2SAT 98
--- NOTE | 2017-07-09 17:15 | HHI.PR ---
Subjective Remarks Follow up pain. Patient reporting significant pain in right hip that radiates down to right foot. States that he can't walk due to weakness of the right leg. Objective Vitals Vital Signs Date Time Temp Pulse Resp B/P (MAP) Pulse Ox O2 Delivery O2 Flow Rate FiO2 07/09/17 12:02 98.2 100 20 137/67 (90) 97 07/09/17 08:56 97.1 80 20 133/68 (89) 100 07/09/17 04:00 97.4 74 18 131/69 (89) 98 07/09/17 00:00 98.4 80 16 125/60 (81) 97 07/08/17 20:00 98.1 79 18 138/63 (88) 95 I/O 07/08/17 07/08/17 07/08/17 07/09/17 07/09/17 07/09/17 06:59 14:59 22:59 06:59 14:59 22:59 Intake Total 960 ml Output Total 500 ml 850 ml Balance -500 ml 960 ml -850 ml Intake Oral 960 ml Output Urine Total 500 ml 850 ml # Voids 3 # Bowel Movements 1 Imaging Last Impressions Needle Aspiration CT 07/08/17 0000 Signed Impressions: Service Date/Time: June 16:57 - CONCLUSION: 1. CT- guided right SI joint aspiration, as above. Constantino Vasquez MD Lower Extremity CT 07/07/17 0000 Signed Impressions: Service Date/Time: Friday, July 07, 2017 21:55 - CONCLUSION: 1. No acute findings. Stephan Abad MD Pelvis MRI 07/06/17 0000 Signed Impressions: Service Date/Time: Thursday, July 06, 2017 18:42 - CONCLUSION: Edema within both the iliac bone and sacrum surrounding the right sacroiliac joint. Findings are diagnostic of right sacroiliitis. This is secondary to nonspecific process. Inflammatory and infectious processes should be considered. No fracture is identified. Kaleb Rubio MD Facet Joint Injection X-Ray 07/05/17 0000 Signed Impressions: Service Date/Time: Wednesday, July 05, 2017 14:22 - CONCLUSION: Uncomplicated fluoroscopically guided right sacroiliac joint injection as above. Stephen Best Jr., MD Hip and Pelvis X-Ray 07/04/17 0000 Signed Impressions: Service Date/Time: Tuesday, July 04, 2017 08:25 - CONCLUSION: No acute fracture. Justo Mayen MD Needle Biopsy X-Ray 07/02/17 0000 Signed Impressions: Service Date/Time: Sunday, July 02, 2017 14:21 - CONCLUSION: Uncomplicated needle biopsy/aspiration of the right sacroiliac joint. Gus Cheng MD Hip MRI 07/01/17 0000 Signed Impressions: Service Date/Time: June 10:39 - CONCLUSION: 1. Significant edema around the right sacroiliac joint correlate for inflammatory arthritis. 2. Soft tissue edema overlying the hip. Mild edema at the origin of the vastus lateralis muscle Quinton Marte MD Brain MRI 07/01/17 0000 Signed Impressions: Service Date/Time: June 10:39 - CONCLUSION: Normal examination. Stephen Best Jr., MD Thoracic Spine MRI 06/26/17 0000 Signed Impressions: Service Date/Time: Monday, June 26, 2017 00:41 - CONCLUSION: 1. Tiny right paracentral protrusion at T10-11 without canal stenosis. 2. Small right paracentral protrusion at T11-12 without canal stenosis. 3. No compression fracture or spondylolisthesis. Justo Mayen MD Lumbar Spine MRI 06/26/17 0000 Signed Impressions: Service Date/Time: Monday, June 26, 2017 00:41 - CONCLUSION: 1. Minimal broad-based disc bulges at L3-4 and L4-5 levels without stenosis. 2. Mild broad-based protrusion more such the left at L5-S1. Justo Mayen MD Objective Remarks General: No acute distress. Heart: Regular rate and rhythm. No murmur. Lungs: Clear to auscultation bilaterally. No wheezes, rales, or rhonchi. Breathing is nonlabored. Abdomen: Soft, nontender, nondistended. Extremities: No lower extremity edema. LLE strength 5/5. RLE strength 3-4/5. Patient reports significant pain with active motion of right leg. Psych: Alert and oriented. Procedures 07/02/2017 Aspiration biopsy of right SI joint by IR 07/05/2017 Steroid injection to right SI joint by IR 07/08 Bedside L leg I&D Urinary Catheter: No Vascular Central Line Catheter: No A/P Problem List: (1) Intractable back pain ICD Code: M54.9 - Dorsalgia, unspecified Status: Acute (2) Gait instability ICD Code: R26.81 - Unsteadiness on feet Status: Acute (3) Leukocytosis ICD Code: D72.829 - Elevated white blood cell count, unspecified Status: Acute Assessment and Plan 1. Intractable back pain: No fracture on hip MRI. Neurosurgery had previously recommended no surgical intervention (on previous hospitalization 06/05-06/09/17) . Continue gabapentin, lidoderm path, soma. 2. RLE weakness, pain: Appreciate neurology recommendations. ?lumbosacral plexus injury. S/P EMG. Continue pain control, PT. 3. Gait instability: Secondary to above. No clear etiology on imaging. Continue PT. 4. Cellulitis/abscess of left calf: Culture grew MRSA. S/P incision & drainage. Continue Bactrim. 5. Anxiety: Clonazepam as needed. 6. DVT prophylaxis: SCDs. Jose Alejandro Goel MD Jul 09, 2017 17:15
[2017-07-09 20:00] VITALS: BP 159/72; PULSE 106; RESP 21; TEMP 98.8; O2SAT 100
[2017-07-09] MEDS ORDERED: MORPHINE SULFATE 4 MG/ML INJ IV PUSH ONE ×2 (23:00→23:15)
[2017-07-10] VITALS: BP 127/60; PULSE 95; RESP 18; TEMP 98.6; O2SAT 100
[2017-07-10] MEDS: CARISOPRODOL 350 MG TAB PO PRN ×3 (03:52→21:18)
[2017-07-10 04:00] VITALS: BP 124/72; PULSE 76; RESP 18; TEMP 97.8; O2SAT 98
[2017-07-10 08:00] VITALS: BP 127/60; PULSE 94; RESP 18; TEMP 97.8; O2SAT 98
[2017-07-10] MEDS: NICOTINE 14 MG/24 HR PATCH T-DERMAL SCH (08:57)
[2017-07-10] MEDS: GABAPENTIN 300 MG CAP PO SCH ×3 (08:59→17:19)
[2017-07-10] MEDS: oxyCODONE/ACETAMINOPHEN 10 MG/325 MG TAB PO PRN ×2 (08:59→17:19)
[2017-07-10] MEDS: MORPHINE SULFATE 15 MG CONTROLLED RELEASE TAB PO SCH ×2 (09:00→21:02)
[2017-07-10] MEDS: LIDOCAINE HCL 5% PATCH T-DERMAL SCH (09:00)
[2017-07-10] MEDS: SODIUM CHLORIDE 0.9% FLUSH 10 ML FLUSH IV FLUSH SCH ×2 (09:00→21:03)
[2017-07-10] MEDS: FAMOTIDINE 20 MG TAB PO SCH ×2 (09:00→21:02)
[2017-07-10] MEDS: REMOVE OLD NICODERM (NICOTINE) PATCH T-DERMAL SCH (09:00)
[2017-07-10] MEDS: SULFAMETHOXAZOLE-TRIMETHOPRIM DS 800-160 MG TAB PO SCH ×2 (09:01→21:02)
[2017-07-10] MEDS: REMOVE OLD PATCH T-DERMAL SCH (09:30)
[2017-07-10] MEDS: clonazePAM 1 MG TAB PO PRN ×2 (10:28→21:18)
[2017-07-10 12:00] VITALS: BP 122/64; PULSE 88; RESP 19; TEMP 98; O2SAT 98
--- NOTE | 2017-07-10 14:22 | HHI.PR ---
Subjective Remarks Follow up back/hip pain. Patient reporting severe pain in the right SI joint and lumbar region. Per nursing, patient ambulated this morning. No other complaints at this time. Objective Vitals Vital Signs Date Time Temp Pulse Resp B/P (MAP) Pulse Ox O2 Delivery O2 Flow Rate FiO2 07/10/17 12:00 98.0 88 19 122/64 (83) 98 07/10/17 08:00 97.8 94 18 127/60 (82) 98 07/10/17 04:00 97.8 76 18 124/72 (89) 98 07/10/17 00:00 98.6 95 18 127/60 (82) 100 07/09/17 20:00 98.8 106 21 159/72 (101) 100 07/09/17 17:03 98.4 95 20 135/78 (97) 98 I/O 07/09/17 07/09/17 07/09/17 07/10/17 07/10/17 07/10/17 07:00 15:00 23:00 07:00 15:00 23:00 Intake Total 480 ml Output Total 850 ml 450 ml Balance -850 ml 30 ml Intake Oral 480 ml Output Urine Total 850 ml 450 ml # Bowel Movements 1 Imaging Last Impressions Needle Aspiration CT 07/08/17 0000 Signed Impressions: Service Date/Time: June 16:57 - CONCLUSION: 1. CT- guided right SI joint aspiration, as above. Constantino Vasquez MD Lower Extremity CT 07/07/17 0000 Signed Impressions: Service Date/Time: Friday, July 07, 2017 21:55 - CONCLUSION: 1. No acute findings. Stephan Abad MD Pelvis MRI 07/06/17 0000 Signed Impressions: Service Date/Time: Thursday, July 06, 2017 18:42 - CONCLUSION: Edema within both the iliac bone and sacrum surrounding the right sacroiliac joint. Findings are diagnostic of right sacroiliitis. This is secondary to nonspecific process. Inflammatory and infectious processes should be considered. No fracture is identified. Kaleb Rubio MD Facet Joint Injection X-Ray 07/05/17 0000 Signed Impressions: Service Date/Time: Wednesday, July 05, 2017 14:22 - CONCLUSION: Uncomplicated fluoroscopically guided right sacroiliac joint injection as above. Stephen Best Jr., MD Hip and Pelvis X-Ray 07/04/17 0000 Signed Impressions: Service Date/Time: Tuesday, July 04, 2017 08:25 - CONCLUSION: No acute fracture. Justo Mayen MD Needle Biopsy X-Ray 07/02/17 0000 Signed Impressions: Service Date/Time: Sunday, July 02, 2017 14:21 - CONCLUSION: Uncomplicated needle biopsy/aspiration of the right sacroiliac joint. Gus Cheng MD Hip MRI 07/01/17 0000 Signed Impressions: Service Date/Time: June 10:39 - CONCLUSION: 1. Significant edema around the right sacroiliac joint correlate for inflammatory arthritis. 2. Soft tissue edema overlying the hip. Mild edema at the origin of the vastus lateralis muscle Quinton Marte MD Brain MRI 07/01/17 0000 Signed Impressions: Service Date/Time: June 10:39 - CONCLUSION: Normal examination. Stephen Best Jr., MD Thoracic Spine MRI 06/26/17 0000 Signed Impressions: Service Date/Time: Monday, June 26, 2017 00:41 - CONCLUSION: 1. Tiny right paracentral protrusion at T10-11 without canal stenosis. 2. Small right paracentral protrusion at T11-12 without canal stenosis. 3. No compression fracture or spondylolisthesis. Justo Mayen MD Lumbar Spine MRI 06/26/17 0000 Signed Impressions: Service Date/Time: Monday, June 26, 2017 00:41 - CONCLUSION: 1. Minimal broad-based disc bulges at L3-4 and L4-5 levels without stenosis. 2. Mild broad-based protrusion more such the left at L5-S1. Justo Mayen MD Objective Remarks General: No acute distress. Appears uncomfortable. Heart: Regular rate and rhythm. No murmur. Lungs: Clear to auscultation bilaterally. No wheezes, rales, or rhonchi. Breathing is nonlabored. Abdomen: Soft, nontender, nondistended. Extremities: No lower extremity edema. Patient reports significant pain with active motion of right leg. Back: Tenderness in right lumbar region. Psych: Alert and oriented. Procedures 07/02/2017 Aspiration biopsy of right SI joint by IR 07/05/2017 Steroid injection to right SI joint by IR 07/08 Bedside L leg I&D Urinary Catheter: No Vascular Central Line Catheter: No A/P Problem List: (1) Intractable back pain ICD Code: M54.9 - Dorsalgia, unspecified Status: Acute (2) Gait instability ICD Code: R26.81 - Unsteadiness on feet Status: Acute (3) Leukocytosis ICD Code: D72.829 - Elevated white blood cell count, unspecified Status: Acute Assessment and Plan 1. Intractable back pain: No fracture on hip MRI. Neurosurgery had previously recommended no surgical intervention (on previous hospitalization 06/05-06/09/17) . Continue gabapentin, lidoderm patch, soma. Percocet as needed with Morphine IV for breakthrough pain. 2. RLE weakness, pain: Appreciate neurology recommendations. ?lumbosacral plexus injury. S/P EMG. Continue pain control, PT. 3. Gait instability: Secondary to above. No clear etiology on imaging. Continue PT. 4. Cellulitis/abscess of left calf: Culture grew MRSA. S/P incision & drainage. Continue Bactrim. 5. Anxiety: Clonazepam as needed. 6. DVT prophylaxis: SCDs. Jose Alejandro Goel MD Jul 10, 2017 14:22
[2017-07-10] MEDS: MORPHINE SULFATE 4 MG/ML INJ IV PUSH PRN ×2 (15:58→21:01)
[2017-07-10 16:00] VITALS: BP 138/76; PULSE 96; RESP 19; TEMP 98.6; O2SAT 98
[2017-07-10 21:04] VITALS: BP 129/58; PULSE 84; RESP 18; TEMP 98.9; O2SAT 100
[2017-07-11 00:38] VITALS: BP 124/75; PULSE 85; RESP 18; TEMP 98.6; O2SAT 100
[2017-07-11] MEDS: MORPHINE SULFATE 4 MG/ML INJ IV PUSH PRN ×6 (00:57→23:40)
[2017-07-11] MEDS: oxyCODONE/ACETAMINOPHEN 10 MG/325 MG TAB PO PRN ×4 (03:26→22:13)
[2017-07-11] MEDS: CARISOPRODOL 350 MG TAB PO PRN ×3 (06:56→20:40)
[2017-07-11 08:00] VITALS: BP 107/58; PULSE 65; RESP 16; TEMP 97.9; O2SAT 98
[2017-07-11] MEDS: REMOVE OLD NICODERM (NICOTINE) PATCH T-DERMAL SCH (09:00)
[2017-07-11] MEDS: LIDOCAINE HCL 5% PATCH T-DERMAL SCH (09:00)
[2017-07-11] MEDS: SODIUM CHLORIDE 0.9% FLUSH 10 ML FLUSH IV FLUSH SCH ×2 (09:00→20:41)
[2017-07-11] MEDS: NICOTINE 14 MG/24 HR PATCH T-DERMAL SCH (09:07)
[2017-07-11] MEDS: GABAPENTIN 300 MG CAP PO SCH ×3 (09:08→18:34)
[2017-07-11] MEDS: SULFAMETHOXAZOLE-TRIMETHOPRIM DS 800-160 MG TAB PO SCH ×2 (09:08→20:40)
[2017-07-11] MEDS: MORPHINE SULFATE 15 MG CONTROLLED RELEASE TAB PO SCH ×2 (09:08→20:42)
[2017-07-11] MEDS: FAMOTIDINE 20 MG TAB PO SCH ×2 (09:08→20:40)
[2017-07-11] MEDS: REMOVE OLD PATCH T-DERMAL SCH (09:30)
[2017-07-11] MEDS: clonazePAM 1 MG TAB PO PRN ×2 (10:59→22:13)
[2017-07-11 11:54] LABS: BICARBONATE 27.2 MEQ/L (21.0-32.0); POTASSIUM 4.4 MEQ/L (3.5-5.1)
[2017-07-11 12:00] VITALS: BP 111/57; PULSE 80; RESP 16; TEMP 98; O2SAT 98
[2017-07-11 12:03] LABS: AUTOMATED NEUTROPHIL # 4.5 TH/MM3 (1.8-7.7); BASOPHIL # 0.1 TH/MM3 (0-0.2); EOSINOPHIL # 0.3 TH/MM3 (0-0.4); EOSINOPHIL % 3.8 % (0.0-4.0); HEMATOCRIT 37.4 % (39.0-51.0); HEMO FLAGS DIFF FINAL; LYMPH % 27.4 % (9.0-44.0); LYMPHOCYTE # 2.1 TH/MM3 (1.0-4.8); MEAN CELL VOLUME 79.7 FL (80.0-100.0); MEAN CORPUSCULAR HEMOGLOBIN 26.2 PG (27.0-34.0); MEAN CORPUSCULAR HGB CONC 32.8 % (32.0-36.0); MONO % 7.7 % (0.0-8.0); NEUT % 60.1 % (16.0-70.0); PLATELET COUNT 172 TH/MM3 (150-450); RED BLOOD COUNT 4.69 MIL/MM3 (4.50-5.90); RED CELL DISTRIBUTION WIDTH 17.6 % (11.6-17.2); WHITE BLOOD COUNT 7.5 TH/MM3 (4.0-11.0)
[2017-07-11 12:30] LABS: WESTERGREN SEDIMENTATION RATE 20 mm/hr (0-15)
--- NOTE | 2017-07-11 15:31 | HHI.PR ---
Subjective Remarks Follow up back/hip pain. Patient states that the pain is still severe. Denies chest pain, dyspnea, nausea, vomiting. Did not work with PT today due to pain. Objective Vitals Vital Signs Date Time Temp Pulse Resp B/P (MAP) Pulse Ox O2 Delivery O2 Flow Rate FiO2 07/11/17 12:00 98.0 80 16 111/57 (75) 98 07/11/17 08:00 97.9 65 16 107/58 (74) 98 07/11/17 00:38 98.6 85 18 124/75 (91) 100 07/10/17 21:04 98.9 84 18 129/58 (81) 100 07/10/17 16:00 98.6 96 19 138/76 (96) 98 I/O 07/10/17 07/10/17 07/10/17 07/11/17 07/11/17 07/11/17 06:59 14:59 22:59 06:59 14:59 22:59 Intake Total 720 ml Output Total 1125 ml 650 ml 240 ml Balance -405 ml -650 ml -240 ml Intake Oral 720 ml Output Urine Total 1125 ml 650 ml 240 ml # Voids 3 # Bowel Movements 1 Result Diagram: 07/11/17 1003 07/11/17 1003 Imaging Last Impressions Needle Aspiration CT 07/08/17 0000 Signed Impressions: Service Date/Time: June 16:57 - CONCLUSION: 1. CT- guided right SI joint aspiration, as above. Constantino Vasquez MD Lower Extremity CT 07/07/17 0000 Signed Impressions: Service Date/Time: Friday, July 07, 2017 21:55 - CONCLUSION: 1. No acute findings. Stephan Abad MD Pelvis MRI 07/06/17 0000 Signed Impressions: Service Date/Time: Thursday, July 06, 2017 18:42 - CONCLUSION: Edema within both the iliac bone and sacrum surrounding the right sacroiliac joint. Findings are diagnostic of right sacroiliitis. This is secondary to nonspecific process. Inflammatory and infectious processes should be considered. No fracture is identified. Kaleb Rubio MD Facet Joint Injection X-Ray 07/05/17 0000 Signed Impressions: Service Date/Time: Wednesday, July 05, 2017 14:22 - CONCLUSION: Uncomplicated fluoroscopically guided right sacroiliac joint injection as above. Stephen Best Jr., MD Hip and Pelvis X-Ray 07/04/17 0000 Signed Impressions: Service Date/Time: Tuesday, July 04, 2017 08:25 - CONCLUSION: No acute fracture. Justo Mayen MD Needle Biopsy X-Ray 07/02/17 0000 Signed Impressions: Service Date/Time: Sunday, July 02, 2017 14:21 - CONCLUSION: Uncomplicated needle biopsy/aspiration of the right sacroiliac joint. Gus Cheng MD Hip MRI 07/01/17 0000 Signed Impressions: Service Date/Time: , July 01, 2017 10:39 - CONCLUSION: 1. Significant edema around the right sacroiliac joint correlate for inflammatory arthritis. 2. Soft tissue edema overlying the hip. Mild edema at the origin of the vastus lateralis muscle Quinton Marte MD Brain MRI 07/01/17 0000 Signed Impressions: Service Date/Time: June 10:39 - CONCLUSION: Normal examination. Stephen Best Jr., MD Thoracic Spine MRI 06/26/17 0000 Signed Impressions: Service Date/Time: Monday, June 26, 2017 00:41 - CONCLUSION: 1. Tiny right paracentral protrusion at T10-11 without canal stenosis. 2. Small right paracentral protrusion at T11-12 without canal stenosis. 3. No compression fracture or spondylolisthesis. Justo Mayen MD Lumbar Spine MRI 06/26/17 0000 Signed Impressions: Service Date/Time: Monday, June 26, 2017 00:41 - CONCLUSION: 1. Minimal broad-based disc bulges at L3-4 and L4-5 levels without stenosis. 2. Mild broad-based protrusion more such the left at L5-S1. Justo Mayen MD Objective Remarks General: No acute distress. Appears uncomfortable. Heart: Regular rate and rhythm. No murmur. Lungs: Clear to auscultation bilaterally. No wheezes, rales, or rhonchi. Breathing is nonlabored. Abdomen: Soft, nontender, nondistended. Extremities: No lower extremity edema. Patient reports significant pain with active motion of right leg. Back: Tenderness in right lumbar region. Psych: Alert and oriented. Procedures 07/02/2017 Aspiration biopsy of right SI joint by IR 07/05/2017 Steroid injection to right SI joint by IR 07/08 Bedside L leg I&D Urinary Catheter: No Vascular Central Line Catheter: No A/P Problem List: (1) Intractable back pain ICD Code: M54.9 - Dorsalgia, unspecified Status: Acute (2) Gait instability ICD Code: R26.81 - Unsteadiness on feet Status: Acute (3) Leukocytosis ICD Code: D72.829 - Elevated white blood cell count, unspecified Status: Acute Assessment and Plan 1. Intractable back pain: Likely sacroiliitis. No fracture on hip MRI. Neurosurgery had previously recommended no surgical intervention (on previous hospitalization 06/05-06/09/17). Continue gabapentin, soma. Refusing Lidoderm patch. Percocet as needed with Morphine IV for breakthrough pain. 2. RLE weakness, pain: Appreciate neurology recommendations. ?lumbosacral plexus injury. S/P EMG. Continue pain control, PT. 3. Gait instability: Secondary to above. No clear etiology on imaging. Continue PT. 4. Cellulitis/abscess of left calf: Culture grew MRSA. S/P incision & drainage. Continue Bactrim. 5. Anxiety: Clonazepam as needed. 6. DVT prophylaxis: SCDs. Jose Alejandro Goel MD Jul 11, 2017 15:31
[2017-07-11 16:00] VITALS: BP 136/63; PULSE 92; RESP 16; TEMP 98.2; O2SAT 98
[2017-07-11 20:35] VITALS: BP 109/62; PULSE 92; RESP 18; TEMP 98.2; O2SAT 99
[2017-07-12 00:35] VITALS: BP 133/63; PULSE 103; RESP 18; TEMP 98.1; O2SAT 96
[2017-07-12] MEDS: CARISOPRODOL 350 MG TAB PO PRN ×3 (02:39→22:26)
[2017-07-12] MEDS: MORPHINE SULFATE 4 MG/ML INJ IV PUSH PRN ×4 (03:39→22:26)
[2017-07-12 04:33] VITALS: BP 127/60; PULSE 95; RESP 18; TEMP 98; O2SAT 94
[2017-07-12] MEDS: oxyCODONE/ACETAMINOPHEN 10 MG/325 MG TAB PO PRN ×3 (04:49→20:46)
[2017-07-12 08:00] VITALS: BP 123/76; PULSE 89; RESP 18; TEMP 98.4; O2SAT 96
[2017-07-12] MEDS: REMOVE OLD NICODERM (NICOTINE) PATCH T-DERMAL SCH (09:00)
[2017-07-12] MEDS: LIDOCAINE HCL 5% PATCH T-DERMAL SCH (09:00)
[2017-07-12] MEDS: SULFAMETHOXAZOLE-TRIMETHOPRIM DS 800-160 MG TAB PO SCH ×2 (09:03→20:46)
[2017-07-12] MEDS: clonazePAM 1 MG TAB PO PRN ×3 (09:03→22:25)
[2017-07-12] MEDS: FAMOTIDINE 20 MG TAB PO SCH ×2 (09:03→20:47)
[2017-07-12] MEDS: GABAPENTIN 300 MG CAP PO SCH ×3 (09:03→17:51)
[2017-07-12] MEDS: NICOTINE 14 MG/24 HR PATCH T-DERMAL SCH (09:04)
[2017-07-12] MEDS: MORPHINE SULFATE 15 MG CONTROLLED RELEASE TAB PO SCH ×2 (09:04→20:45)
[2017-07-12] MEDS: SODIUM CHLORIDE 0.9% FLUSH 10 ML FLUSH IV FLUSH SCH ×2 (09:19→21:00)
[2017-07-12] MEDS: REMOVE OLD PATCH T-DERMAL SCH (09:19)
[2017-07-12 11:36] VITALS: BP 135/56; PULSE 88; RESP 16; TEMP 98.2; O2SAT 96
--- NOTE | 2017-07-12 12:07 | HHI.PR ---
Subjective Remarks Follow up back/hip/leg pain. Patient is ambulating with physical therapy. States that the pain is somewhat better today. Wants to go home soon. Would like steroid injection prior to discharge. Objective Vitals Vital Signs Date Time Temp Pulse Resp B/P (MAP) Pulse Ox O2 Delivery O2 Flow Rate FiO2 07/12/17 11:36 98.2 88 16 135/56 (82) 96 07/12/17 08:00 98.4 89 18 123/76 (92) 96 07/12/17 04:33 98.0 95 18 127/60 (82) 94 07/12/17 00:35 98.1 103 18 133/63 (86) 96 07/11/17 20:35 98.2 92 18 109/62 (78) 99 07/11/17 16:00 98.2 92 16 136/63 (87) 98 07/11/17 12:07 17 I/O 07/11/17 07/11/17 07/11/17 07/12/17 07/12/17 07/12/17 07:00 15:00 23:00 07:00 15:00 23:00 Intake Total 1500 ml 720 ml Output Total 240 ml 650 ml 750 ml Balance -240 ml 1500 ml 70 ml -750 ml Intake Oral 1500 ml 720 ml Output Urine Total 240 ml 650 ml 750 ml # Voids 5 # Bowel Movements 2 0 0 Result Diagram: 07/11/17 1003 07/11/17 1003 Imaging Last Impressions Needle Aspiration CT 07/08/17 0000 Signed Impressions: Service Date/Time: June 16:57 - CONCLUSION: 1. CT- guided right SI joint aspiration, as above. Constantino Vasquez MD Lower Extremity CT 07/07/17 0000 Signed Impressions: Service Date/Time: Friday, July 07, 2017 21:55 - CONCLUSION: 1. No acute findings. Stephan Abad MD Pelvis MRI 07/06/17 0000 Signed Impressions: Service Date/Time: Thursday, July 06, 2017 18:42 - CONCLUSION: Edema within both the iliac bone and sacrum surrounding the right sacroiliac joint. Findings are diagnostic of right sacroiliitis. This is secondary to nonspecific process. Inflammatory and infectious processes should be considered. No fracture is identified. Kaleb Rubio MD Facet Joint Injection X-Ray 07/05/17 0000 Signed Impressions: Service Date/Time: Wednesday, July 05, 2017 14:22 - CONCLUSION: Uncomplicated fluoroscopically guided right sacroiliac joint injection as above. Stephen Best Jr., MD Hip and Pelvis X-Ray 07/04/17 0000 Signed Impressions: Service Date/Time: Tuesday, July 04, 2017 08:25 - CONCLUSION: No acute fracture. Justo Mayen MD Needle Biopsy X-Ray 07/02/17 0000 Signed Impressions: Service Date/Time: Sunday, July 02, 2017 14:21 - CONCLUSION: Uncomplicated needle biopsy/aspiration of the right sacroiliac joint. Gus Cheng MD Hip MRI 07/01/17 0000 Signed Impressions: Service Date/Time: June 10:39 - CONCLUSION: 1. Significant edema around the right sacroiliac joint correlate for inflammatory arthritis. 2. Soft tissue edema overlying the hip. Mild edema at the origin of the vastus lateralis muscle Quinton Marte MD Brain MRI 07/01/17 0000 Signed Impressions: Service Date/Time: June 10:39 - CONCLUSION: Normal examination. Stephen Best Jr., MD Thoracic Spine MRI 06/26/17 0000 Signed Impressions: Service Date/Time: Monday, June 26, 2017 00:41 - CONCLUSION: 1. Tiny right paracentral protrusion at T10-11 without canal stenosis. 2. Small right paracentral protrusion at T11-12 without canal stenosis. 3. No compression fracture or spondylolisthesis. Justo Mayen MD Lumbar Spine MRI 06/26/17 0000 Signed Impressions: Service Date/Time: Monday, June 26, 2017 00:41 - CONCLUSION: 1. Minimal broad-based disc bulges at L3-4 and L4-5 levels without stenosis. 2. Mild broad-based protrusion more such the left at L5-S1. Justo Mayen MD Objective Remarks General: No acute distress. Ambulating with walker, PT. Heart: Regular rate and rhythm. No murmur. Lungs: Clear to auscultation bilaterally. No wheezes, rales, or rhonchi. Breathing is nonlabored. Abdomen: Soft, nontender, nondistended. Extremities: No lower extremity edema. Psych: Alert and oriented. Procedures 07/02/2017 Aspiration biopsy of right SI joint by IR 07/05/2017 Steroid injection to right SI joint by IR 07/08 Bedside L leg I&D Urinary Catheter: No Vascular Central Line Catheter: No A/P Problem List: (1) Intractable back pain ICD Code: M54.9 - Dorsalgia, unspecified Status: Acute (2) Gait instability ICD Code: R26.81 - Unsteadiness on feet Status: Acute (3) Leukocytosis ICD Code: D72.829 - Elevated white blood cell count, unspecified Status: Acute Assessment and Plan 1. Intractable back pain: Likely sacroiliitis. No fracture on hip MRI. Neurosurgery had previously recommended no surgical intervention (on previous hospitalization 06/05-06/09/17). Continue gabapentin, soma. Refusing Lidoderm patch. Percocet as needed with Morphine IV for breakthrough pain. 2. RLE weakness, pain: Appreciate neurology recommendations. ?lumbosacral plexus injury. S/P EMG. Continue pain control, PT. 3. Gait instability: Secondary to above. No clear etiology on imaging. Continue PT. 4. Cellulitis/abscess of left calf: Culture grew MRSA. S/P incision & drainage. Continue Bactrim. 5. Anxiety: Clonazepam as needed. 6. DVT prophylaxis: SCDs. Discharge Planning Anticipate discharge home soon pending improved pain control. Jose Alejandro Goel MD Jul 12, 2017 12:07
[2017-07-12] MEDS: SODIUM CHLORIDE 0.9% FLUSH 10 ML FLUSH IV FLUSH PRN (15:00)
[2017-07-12 17:52] VITALS: BP 134/77; PULSE 76; RESP 20; TEMP 97.8; O2SAT 100
[2017-07-12 20:42] VITALS: BP 146/91; PULSE 89; RESP 20; TEMP 98.1; O2SAT 100
[2017-07-13] VITALS (7 sets, daily range): BP systolic 114–136; BP diastolic 55–77; PULSE 72–89; RESP 14–20; TEMP 97.7–98.2; O2SAT 96–99
[2017-07-13] MEDS: MORPHINE SULFATE 4 MG/ML INJ IV PUSH PRN ×5 (03:35→22:42)
[2017-07-13] MEDS: FAMOTIDINE 20 MG TAB PO SCH ×2 (08:40→21:23)
[2017-07-13] MEDS: SULFAMETHOXAZOLE-TRIMETHOPRIM DS 800-160 MG TAB PO SCH ×2 (08:40→21:24)
[2017-07-13] MEDS: MORPHINE SULFATE 15 MG CONTROLLED RELEASE TAB PO SCH ×2 (08:41→21:23)
[2017-07-13] MEDS: GABAPENTIN 300 MG CAP PO SCH ×3 (08:41→18:14)
[2017-07-13] MEDS: SODIUM CHLORIDE 0.9% FLUSH 10 ML FLUSH IV FLUSH SCH ×2 (08:41→21:24)
[2017-07-13] MEDS: oxyCODONE/ACETAMINOPHEN 10 MG/325 MG TAB PO PRN (08:41)
[2017-07-13] MEDS: REMOVE OLD NICODERM (NICOTINE) PATCH T-DERMAL SCH (08:49)
[2017-07-13] MEDS: NICOTINE 14 MG/24 HR PATCH T-DERMAL SCH (08:49)
[2017-07-13] MEDS: LIDOCAINE HCL 5% PATCH T-DERMAL SCH (08:51)
[2017-07-13] MEDS: REMOVE OLD PATCH T-DERMAL SCH (08:52)
[2017-07-13] MEDS: CARISOPRODOL 350 MG TAB PO PRN ×3 (10:34→23:39)
[2017-07-13] MEDS: clonazePAM 1 MG TAB PO PRN ×3 (10:34→23:39)
--- NOTE | 2017-07-13 12:07 | HHI.PR ---
Subjective Remarks Follow up back/hip/leg pain. Patient requesting STD check and HIV testing. States that his former girlfriend let him know that she had an STD, but did not tell him which one. Has had some penile irritation, but no discharge. Has noted a rash in his groin and whitish material under foreskin. Objective Vitals Vital Signs Date Time Temp Pulse Resp B/P (MAP) Pulse Ox O2 Delivery O2 Flow Rate FiO2 07/13/17 08:37 98.2 75 20 114/55 (74) 98 07/13/17 05:48 97.7 79 20 122/77 (92) 98 07/13/17 01:08 97.8 72 20 136/63 (87) 97 07/12/17 20:42 98.1 89 20 146/91 (109) 100 07/12/17 17:52 97.8 76 20 134/77 (96) 100 I/O 07/12/17 07/12/17 07/12/17 07/13/17 07/13/17 07/13/17 07:00 15:00 23:00 07:00 15:00 23:00 Output Total 750 ml 300 ml Balance -750 ml -300 ml Output Urine Total 750 ml 300 ml # Bowel Movements 0 Result Diagram: 07/11/17 1003 07/11/17 1003 Imaging Last Impressions Needle Aspiration CT 07/08/17 0000 Signed Impressions: Service Date/Time: June 16:57 - CONCLUSION: 1. CT- guided right SI joint aspiration, as above. Constantino Vasquez MD Lower Extremity CT 07/07/17 0000 Signed Impressions: Service Date/Time: Friday, July 07, 2017 21:55 - CONCLUSION: 1. No acute findings. Stephan Abad MD Pelvis MRI 07/06/17 0000 Signed Impressions: Service Date/Time: Thursday, July 06, 2017 18:42 - CONCLUSION: Edema within both the iliac bone and sacrum surrounding the right sacroiliac joint. Findings are diagnostic of right sacroiliitis. This is secondary to nonspecific process. Inflammatory and infectious processes should be considered. No fracture is identified. Kaleb Rubio MD Facet Joint Injection X-Ray 07/05/17 0000 Signed Impressions: Service Date/Time: Wednesday, July 05, 2017 14:22 - CONCLUSION: Uncomplicated fluoroscopically guided right sacroiliac joint injection as above. Stephen Best Jr., MD Hip and Pelvis X-Ray 07/04/17 0000 Signed Impressions: Service Date/Time: Tuesday, July 04, 2017 08:25 - CONCLUSION: No acute fracture. Justo Mayen MD Needle Biopsy X-Ray 07/02/17 0000 Signed Impressions: Service Date/Time: Sunday, July 02, 2017 14:21 - CONCLUSION: Uncomplicated needle biopsy/aspiration of the right sacroiliac joint. Gus Cheng MD Hip MRI 07/01/17 0000 Signed Impressions: Service Date/Time: June 10:39 - CONCLUSION: 1. Significant edema around the right sacroiliac joint correlate for inflammatory arthritis. 2. Soft tissue edema overlying the hip. Mild edema at the origin of the vastus lateralis muscle Quinton Marte MD Brain MRI 07/01/17 0000 Signed Impressions: Service Date/Time: June 10:39 - CONCLUSION: Normal examination. Stephen Best Jr., MD Thoracic Spine MRI 06/26/17 0000 Signed Impressions: Service Date/Time: Monday, June 26, 2017 00:41 - CONCLUSION: 1. Tiny right paracentral protrusion at T10-11 without canal stenosis. 2. Small right paracentral protrusion at T11-12 without canal stenosis. 3. No compression fracture or spondylolisthesis. Justo Mayen MD Lumbar Spine MRI 06/26/17 0000 Signed Impressions: Service Date/Time: Monday, June 26, 2017 00:41 - CONCLUSION: 1. Minimal broad-based disc bulges at L3-4 and L4-5 levels without stenosis. 2. Mild broad-based protrusion more such the left at L5-S1. Justo Mayen MD Objective Remarks General: No acute distress. Heart: Regular rate and rhythm. No murmur. Lungs: Clear to auscultation bilaterally. No wheezes, rales, or rhonchi. Breathing is nonlabored. Abdomen: Soft, nontender, nondistended. Extremities: No lower extremity edema. Psych: Alert and oriented. : Erythematous rash in groin bilaterally. Procedures 07/02/2017 Aspiration biopsy of right SI joint by IR 07/05/2017 Steroid injection to right SI joint by IR 07/08 Bedside L leg I&D Urinary Catheter: No Vascular Central Line Catheter: No A/P Problem List: (1) Intractable back pain ICD Code: M54.9 - Dorsalgia, unspecified Status: Acute (2) Gait instability ICD Code: R26.81 - Unsteadiness on feet Status: Acute (3) Leukocytosis ICD Code: D72.829 - Elevated white blood cell count, unspecified Status: Acute (4) Tinea cruris ICD Code: B35.6 - Tinea cruris Assessment and Plan 1. Intractable back pain: Likely sacroiliitis. No fracture on hip MRI. Neurosurgery had previously recommended no surgical intervention (on previous hospitalization 06/05-06/09/17). Continue gabapentin, soma. Refusing Lidoderm patch. Percocet as needed with Morphine IV for breakthrough pain. 2. RLE weakness, pain: Appreciate neurology recommendations. ?lumbosacral plexus injury. S/P EMG. Continue pain control, PT. 3. Gait instability: Secondary to above. No clear etiology on imaging. Continue PT. 4. Cellulitis/abscess of left calf: Culture grew MRSA. S/P incision & drainage. Continue Bactrim. 5. Anxiety: Clonazepam as needed. 6. Tinea cruris: Add topical ketoconazole. 7. DVT prophylaxis: SCDs. 8. Check HIV testing and urine GC/chlamydia at patient's request. Discharge Planning Anticipate discharge home soon pending improved pain control. Jose Alejandro Goel MD Jul 13, 2017 12:07
[2017-07-13] MEDS: KETOCONAZOLE 2% CREAM 15 GM TOPICAL SCH ×2 (12:45→21:24)
[2017-07-13 14:46] LABS: CHLAMYDIA PCR NOT DETECTED (NOT DETECT); NEISSERIA PCR NOT DETECTED (NOT DETECT)
[2017-07-14] MEDS: oxyCODONE/ACETAMINOPHEN 10 MG/325 MG TAB PO PRN ×2 (02:08→07:33)
[2017-07-14] MEDS: MORPHINE SULFATE 4 MG/ML INJ IV PUSH PRN ×3 (04:33→23:55)
[2017-07-14 04:54] VITALS: BP 116/67; PULSE 81; RESP 14; TEMP 97.2; O2SAT 99
[2017-07-14 08:00] VITALS: BP 116/67; PULSE 68; RESP 18; TEMP 97.3; O2SAT 96
[2017-07-14] MEDS: LIDOCAINE HCL 5% PATCH T-DERMAL SCH (08:50)
[2017-07-14] MEDS: FAMOTIDINE 20 MG TAB PO SCH ×2 (08:51→20:29)
[2017-07-14] MEDS: NICOTINE 14 MG/24 HR PATCH T-DERMAL SCH (08:51)
[2017-07-14] MEDS: GABAPENTIN 300 MG CAP PO SCH ×3 (08:51→17:48)
[2017-07-14] MEDS: SULFAMETHOXAZOLE-TRIMETHOPRIM DS 800-160 MG TAB PO SCH ×2 (08:51→20:29)
[2017-07-14] MEDS: MORPHINE SULFATE 15 MG CONTROLLED RELEASE TAB PO SCH (08:52)
[2017-07-14] MEDS: SODIUM CHLORIDE 0.9% FLUSH 10 ML FLUSH IV FLUSH SCH ×2 (09:00→20:29)
[2017-07-14] MEDS: REMOVE OLD NICODERM (NICOTINE) PATCH T-DERMAL SCH (09:00)
[2017-07-14] MEDS: REMOVE OLD PATCH T-DERMAL SCH (09:30)
[2017-07-14] MEDS: clonazePAM 1 MG TAB PO PRN ×3 (10:46→23:05)
[2017-07-14] MEDS: CARISOPRODOL 350 MG TAB PO PRN ×3 (10:46→22:57)
--- NOTE | 2017-07-14 11:36 | HHI.PR ---
Subjective Remarks Follow up back/leg pain. Patient feels a little more comfortable at this time. He is requesting to be weaned off Morphine and switched to a different pain medication. Objective Vitals Vital Signs Date Time Temp Pulse Resp B/P (MAP) Pulse Ox O2 Delivery O2 Flow Rate FiO2 07/14/17 08:00 97.3 68 18 116/67 (83) 96 07/14/17 04:54 97.2 81 14 116/67 (83) 99 07/13/17 23:41 82 16 123/61 (81) 96 07/13/17 21:21 97.9 77 14 120/59 (79) 99 07/13/17 16:36 98.0 89 20 129/66 (87) 97 07/13/17 12:35 97.9 81 20 124/62 (82) 97 I/O 07/13/17 07/13/17 07/13/17 07/14/17 07/14/17 07/14/17 07:00 15:00 23:00 07:00 15:00 23:00 Intake Total 600 ml Output Total 300 ml Balance -300 ml 600 ml Intake Oral 600 ml Output Urine Total 300 ml # Voids 3 # Bowel Movements 1 Result Diagram: 07/11/17 1003 07/11/17 1003 Imaging Last Impressions Needle Aspiration CT 07/08/17 0000 Signed Impressions: Service Date/Time: June 16:57 - CONCLUSION: 1. CT- guided right SI joint aspiration, as above. Constantino Vasquez MD Lower Extremity CT 07/07/17 0000 Signed Impressions: Service Date/Time: Friday, July 07, 2017 21:55 - CONCLUSION: 1. No acute findings. Stephan Abad MD Pelvis MRI 07/06/17 0000 Signed Impressions: Service Date/Time: Thursday, July 06, 2017 18:42 - CONCLUSION: Edema within both the iliac bone and sacrum surrounding the right sacroiliac joint. Findings are diagnostic of right sacroiliitis. This is secondary to nonspecific process. Inflammatory and infectious processes should be considered. No fracture is identified. Kaleb Rubio MD Facet Joint Injection X-Ray 07/05/17 0000 Signed Impressions: Service Date/Time: Wednesday, July 05, 2017 14:22 - CONCLUSION: Uncomplicated fluoroscopically guided right sacroiliac joint injection as above. Stephen Best Jr., MD Hip and Pelvis X-Ray 07/04/17 0000 Signed Impressions: Service Date/Time: Tuesday, July 04, 2017 08:25 - CONCLUSION: No acute fracture. Justo Mayen MD Needle Biopsy X-Ray 07/02/17 0000 Signed Impressions: Service Date/Time: Sunday, July 02, 2017 14:21 - CONCLUSION: Uncomplicated needle biopsy/aspiration of the right sacroiliac joint. Gus Cheng MD Hip MRI 07/01/17 0000 Signed Impressions: Service Date/Time: , July 01, 2017 10:39 - CONCLUSION: 1. Significant edema around the right sacroiliac joint correlate for inflammatory arthritis. 2. Soft tissue edema overlying the hip. Mild edema at the origin of the vastus lateralis muscle uQinton Marte MD Brain MRI 07/01/17 0000 Signed Impressions: Service Date/Time: June 10:39 - CONCLUSION: Normal examination. Stephen Best Jr., MD Thoracic Spine MRI 06/26/17 0000 Signed Impressions: Service Date/Time: Monday, June 26, 2017 00:41 - CONCLUSION: 1. Tiny right paracentral protrusion at T10-11 without canal stenosis. 2. Small right paracentral protrusion at T11-12 without canal stenosis. 3. No compression fracture or spondylolisthesis. Justo Mayen MD Lumbar Spine MRI 06/26/17 0000 Signed Impressions: Service Date/Time: Monday, June 26, 2017 00:41 - CONCLUSION: 1. Minimal broad-based disc bulges at L3-4 and L4-5 levels without stenosis. 2. Mild broad-based protrusion more such the left at L5-S1. Justo Mayen MD Objective Remarks General: No acute distress. Heart: Regular rate and rhythm. No murmur. Lungs: Clear to auscultation bilaterally. No wheezes, rales, or rhonchi. Breathing is nonlabored. Abdomen: Soft, nontender, nondistended. Extremities: No lower extremity edema. Psych: Alert and oriented. : Erythematous rash in groin bilaterally. Procedures 07/02/2017 Aspiration biopsy of right SI joint by IR 07/05/2017 Steroid injection to right SI joint by IR 07/08 Bedside L leg I&D Urinary Catheter: No Vascular Central Line Catheter: No A/P Problem List: (1) Intractable back pain ICD Code: M54.9 - Dorsalgia, unspecified Status: Acute (2) Gait instability ICD Code: R26.81 - Unsteadiness on feet Status: Acute (3) Leukocytosis ICD Code: D72.829 - Elevated white blood cell count, unspecified Status: Acute (4) Tinea cruris ICD Code: B35.6 - Tinea cruris Assessment and Plan 1. Intractable back pain: Likely sacroiliitis. No fracture on hip MRI. Neurosurgery had previously recommended no surgical intervention (on previous hospitalization 06/05-06/09/17). Continue gabapentin, soma. Refusing Lidoderm patch. Will adjust pain medications. 2. RLE weakness, pain: Appreciate neurology recommendations. ?lumbosacral plexus injury. S/P EMG. Continue pain control, PT. 3. Gait instability: Secondary to above. No clear etiology on imaging. Continue PT. 4. Cellulitis/abscess of left calf: Culture grew MRSA. S/P incision & drainage. Continue Bactrim. 5. Anxiety: Clonazepam as needed. 6. Tinea cruris: Add topical ketoconazole. 7. DVT prophylaxis: SCDs. Discharge Planning Anticipate discharge home soon pending improved pain control. Jose Alejandro Goel MD Jul 14, 2017 11:36
[2017-07-14] MEDS: MUPIROCIN 2% OINT 22 GM TUBE TOPICAL SCH ×2 (11:45→21:00)
[2017-07-14 12:00] VITALS: BP 131/71; PULSE 87; RESP 18; TEMP 97.7; O2SAT 97
[2017-07-14] MEDS: traMADol HCL 50 MG TAB PO PRN ×2 (14:39→20:31)
[2017-07-14 16:00] VITALS: BP 133/70; PULSE 81; RESP 20; TEMP 97.7; O2SAT 99
--- NOTE | 2017-07-14 17:01 | HHI.PR ---
Addendum to Inpatient Note Additional Information pt seen arounfd 1600 Full note to follow Hailee Sheehan MD Jul 14, 2017 17:01
[2017-07-14 20:00] VITALS: BP 110/58; PULSE 90; RESP 18; TEMP 97.8; O2SAT 95
--- NOTE | 2017-07-14 22:29 | HHI.IDPN ---
Subjective Subjective Remarks delaeyed entry, pt was seen earlier today cont to admit RLE strengh improvement , but pain remanis the same. AMbulates with cane that is significant improvement , he was not able to weight bear at all when presented He is afebrile ESR down to 20 Antibiotics po bactrim Allergies: Coded Allergies: No Known Allergies (Unverified , 06/25/17) Objective . Vital Signs Date Time Temp Pulse Resp B/P (MAP) Pulse Ox O2 Delivery O2 Flow Rate FiO2 07/14/17 20:00 97.8 90 18 110/58 (75) 95 07/14/17 16:00 97.7 81 20 133/70 (91) 99 07/14/17 12:00 97.7 87 18 131/71 (91) 97 07/14/17 08:00 97.3 68 18 116/67 (83) 96 07/14/17 04:54 97.2 81 14 116/67 (83) 99 07/13/17 23:41 82 16 123/61 (81) 96 Imaging Last Impressions Pelvis MRI 07/06/17 0000 Signed Impressions: Service Date/Time: Thursday, July 06, 2017 18:42 - CONCLUSION: Edema within both the iliac bone and sacrum surrounding the right sacroiliac joint. Findings are diagnostic of right sacroiliitis. This is secondary to nonspecific process. Inflammatory and infectious processes should be considered. No fracture is identified. Kaleb Rubio MD Facet Joint Injection X-Ray 07/05/17 0000 Signed Impressions: Service Date/Time: Wednesday, July 05, 2017 14:22 - CONCLUSION: Uncomplicated fluoroscopically guided right sacroiliac joint injection as above. Stephen Best Jr., MD Hip and Pelvis X-Ray 07/04/17 0000 Signed Impressions: Service Date/Time: Tuesday, July 04, 2017 08:25 - CONCLUSION: No acute fracture. Justo Mayen MD Needle Biopsy X-Ray 07/02/17 0000 Signed Impressions: Service Date/Time: Sunday, July 02, 2017 14:21 - CONCLUSION: Uncomplicated needle biopsy/aspiration of the right sacroiliac joint. Gus Cheng MD Hip MRI 07/01/17 0000 Signed Impressions: Service Date/Time: June 10:39 - CONCLUSION: 1. Significant edema around the right sacroiliac joint correlate for inflammatory arthritis. 2. Soft tissue edema overlying the hip. Mild edema at the origin of the vastus lateralis muscle Quinton Marte MD Brain MRI 07/01/17 0000 Signed Impressions: Service Date/Time: June 10:39 - CONCLUSION: Normal examination. Stephen Best Jr., MD Thoracic Spine MRI 06/26/17 0000 Signed Impressions: Service Date/Time: Monday, June 26, 2017 00:41 - CONCLUSION: 1. Tiny right paracentral protrusion at T10-11 without canal stenosis. 2. Small right paracentral protrusion at T11-12 without canal stenosis. 3. No compression fracture or spondylolisthesis. Justo Mayen MD Lumbar Spine MRI 06/26/17 0000 Signed Impressions: Service Date/Time: Monday, June 26, 2017 00:41 - CONCLUSION: 1. Minimal broad-based disc bulges at L3-4 and L4-5 levels without stenosis. 2. Mild broad-based protrusion more such the left at L5-S1. Justo Mayen MD Physical Exam CONSTITUTIONAL/GENERAL: This is an adequately nourished patient, in no apparent distress. TUBES/LINES/DRAINS: SKIN: No jaundice, rashes, Skin temperature appropriate. Not diaphoretic. L calf lwsion is shallow, healing surrounding erythema and edema completely resolved CARDIOVASCULAR: Regular rate and rhythm without murmurs, gallops, or rubs. No JVD. Peripheral pulses symmetric. RESPIRATORY/CHEST: Symmetric, unlabored respirations. Clear to auscultation. Breath sounds equal bilaterally. No wheezes, rales, or rhonchi. GASTROINTESTINAL: Abdomen soft, non-tender, nondistended. No hepato-splenomegaly , or palpable masses. No guarding. Bowel sounds present. GENITOURINARY: Without palpable bladder distension. MUSCULOSKELETAL: Extremities without clubbing, cyanosis, or edema. No joint tenderness or effusion noted. No calf tenderness. No mottling or clubbing. Severely decreased ROM in RLE 2/2 pain BACK: severe tenderness to palpation over R lower lumbar area and over R SI joint , no skin chages noted NEUROLOGICAL: Awake and alert. Motor and sensory grossly within normal limits. Follows commands. Cognitively sharp. Moves all extremities. PSYCHIATRIC: No obvious anxiety/depression. no apparent hallucinations or other psychotic thought process. Assessment & Plan Remarks Right sacroilitis, post traumatic. Infection is doubtful, more likely contamination, 1/2 + clx and not a typical organism, however cannot completely exclusde inrfection - ESR low - MRI can not differentiaate infectious vs non infectious ethiology - staph homionis is a common skin contaminant and unlikely but not completely impossible ethiology; repeat cllx negative right lumbosacral plexus injury with right lower extremity weakness: - neurology ff L calf MRSA abscess sp I+D dc Bactrim monitor ESR fu AFB and fungal clx consider to re-image if not improving Re-aspirate if worse/lack of improvement after 2 weeks off abx Hailee Sheehan MD Jul 14, 2017 22:29
[2017-07-15] VITALS: BP 115/57; PULSE 88; RESP 20; TEMP 97.9; O2SAT 97
[2017-07-15] MEDS: KETOCONAZOLE 2% CREAM 15 GM TOPICAL SCH ×3 (00:02→17:20)
[2017-07-15 04:00] VITALS: BP 131/70; PULSE 74; RESP 20; TEMP 98.6; O2SAT 96
[2017-07-15] MEDS: traMADol HCL 50 MG TAB PO PRN (05:13)
[2017-07-15] MEDS: clonazePAM 1 MG TAB PO PRN ×3 (05:13→20:53)
[2017-07-15] MEDS: CARISOPRODOL 350 MG TAB PO PRN ×3 (05:13→20:53)
[2017-07-15 08:00] VITALS: BP 128/73; PULSE 81; RESP 18; TEMP 97.7; O2SAT 97
[2017-07-15] MEDS: LIDOCAINE HCL 5% PATCH T-DERMAL SCH (08:37)
[2017-07-15] MEDS: MORPHINE SULFATE 4 MG/ML INJ IV PUSH PRN ×4 (08:37→20:54)
[2017-07-15] MEDS: REMOVE OLD NICODERM (NICOTINE) PATCH T-DERMAL SCH (08:38)
[2017-07-15] MEDS: FAMOTIDINE 20 MG TAB PO SCH ×2 (08:38→20:53)
[2017-07-15] MEDS: NICOTINE 14 MG/24 HR PATCH T-DERMAL SCH (08:38)
[2017-07-15] MEDS: GABAPENTIN 300 MG CAP PO SCH ×3 (08:38→17:15)
[2017-07-15] MEDS: MUPIROCIN 2% OINT 22 GM TUBE TOPICAL SCH ×2 (09:00→21:00)
[2017-07-15] MEDS: REMOVE OLD PATCH T-DERMAL SCH (09:30)
[2017-07-15 12:00] VITALS: BP 144/65; PULSE 107; RESP 17; TEMP 98.2; O2SAT 96
--- NOTE | 2017-07-15 12:00 | HHI.PR ---
Subjective Remarks Follow-up back pain. The patient reports increased pain in his right low back. He states that he "overdid it with physical therapy yesterday". States that the tramadol is not helping at all. He is requesting oxycodone 15 mg. Objective Vitals Vital Signs Date Time Temp Pulse Resp B/P (MAP) Pulse Ox O2 Delivery O2 Flow Rate FiO2 07/15/17 08:00 97.7 81 18 128/73 (91) 97 07/15/17 04:00 98.6 74 20 131/70 (90) 96 07/15/17 00:00 97.9 88 20 115/57 (76) 97 07/14/17 20:00 97.8 90 18 110/58 (75) 95 07/14/17 16:00 97.7 81 20 133/70 (91) 99 07/14/17 12:00 97.7 87 18 131/71 (91) 97 I/O 07/14/17 07/14/17 07/14/17 07/15/17 07/15/17 07/15/17 07:00 15:00 23:00 07:00 15:00 23:00 Intake Total 280 ml Output Total 550 ml Balance -270 ml Intake Oral 280 ml Output Urine Total 550 ml # Voids 3 # Bowel Movements 0 Result Diagram: 07/11/17 1003 07/11/17 1003 Imaging Last Impressions Needle Aspiration CT 07/08/17 0000 Signed Impressions: Service Date/Time: June 16:57 - CONCLUSION: 1. CT- guided right SI joint aspiration, as above. Constantino Vasquez MD Lower Extremity CT 07/07/17 0000 Signed Impressions: Service Date/Time: Friday, July 07, 2017 21:55 - CONCLUSION: 1. No acute findings. Stephan Abad MD Pelvis MRI 07/06/17 0000 Signed Impressions: Service Date/Time: Thursday, July 06, 2017 18:42 - CONCLUSION: Edema within both the iliac bone and sacrum surrounding the right sacroiliac joint. Findings are diagnostic of right sacroiliitis. This is secondary to nonspecific process. Inflammatory and infectious processes should be considered. No fracture is identified. Kaleb Rubio MD Facet Joint Injection X-Ray 07/05/17 0000 Signed Impressions: Service Date/Time: Wednesday, July 05, 2017 14:22 - CONCLUSION: Uncomplicated fluoroscopically guided right sacroiliac joint injection as above. Stephen Best Jr., MD Hip and Pelvis X-Ray 07/04/17 0000 Signed Impressions: Service Date/Time: Tuesday, July 04, 2017 08:25 - CONCLUSION: No acute fracture. Justo Mayen MD Needle Biopsy X-Ray 07/02/17 0000 Signed Impressions: Service Date/Time: Sunday, July 02, 2017 14:21 - CONCLUSION: Uncomplicated needle biopsy/aspiration of the right sacroiliac joint. Gus Cheng MD Hip MRI 07/01/17 0000 Signed Impressions: Service Date/Time: June 10:39 - CONCLUSION: 1. Significant edema around the right sacroiliac joint correlate for inflammatory arthritis. 2. Soft tissue edema overlying the hip. Mild edema at the origin of the vastus lateralis muscle Quinton Marte MD Brain MRI 07/01/17 0000 Signed Impressions: Service Date/Time: June 10:39 - CONCLUSION: Normal examination. Stephen Best Jr., MD Thoracic Spine MRI 06/26/17 0000 Signed Impressions: Service Date/Time: Monday, June 26, 2017 00:41 - CONCLUSION: 1. Tiny right paracentral protrusion at T10-11 without canal stenosis. 2. Small right paracentral protrusion at T11-12 without canal stenosis. 3. No compression fracture or spondylolisthesis. Justo Mayen MD Lumbar Spine MRI 06/26/17 0000 Signed Impressions: Service Date/Time: Monday, June 26, 2017 00:41 - CONCLUSION: 1. Minimal broad-based disc bulges at L3-4 and L4-5 levels without stenosis. 2. Mild broad-based protrusion more such the left at L5-S1. Justo Mayen MD Objective Remarks General: No acute distress. Heart: Regular rate and rhythm. No murmur. Lungs: Clear to auscultation bilaterally. No wheezes, rales, or rhonchi. Breathing is nonlabored. Abdomen: Soft, nontender, nondistended. Extremities: No lower extremity edema. Psych: Alert and oriented. Procedures 07/02/2017 Aspiration biopsy of right SI joint by IR 07/05/2017 Steroid injection to right SI joint by IR 07/08 Bedside L leg I&D Urinary Catheter: No Vascular Central Line Catheter: No A/P Problem List: (1) Intractable back pain ICD Code: M54.9 - Dorsalgia, unspecified Status: Acute (2) Gait instability ICD Code: R26.81 - Unsteadiness on feet Status: Acute (3) Leukocytosis ICD Code: D72.829 - Elevated white blood cell count, unspecified Status: Acute (4) Tinea cruris ICD Code: B35.6 - Tinea cruris Assessment and Plan 1. Intractable back pain: Likely sacroiliitis. No fracture on hip MRI. Neurosurgery had previously recommended no surgical intervention (on previous hospitalization 06/05-06/09/17). Continue gabapentin, soma. Will adjust pain medications again. 2. RLE weakness, pain: Appreciate neurology recommendations. ?lumbosacral plexus injury. S/P EMG. Continue pain control, PT. 3. Gait instability: Secondary to above. No clear etiology on imaging. Continue PT. 4. Cellulitis/abscess of left calf: Culture grew MRSA. S/P incision & drainage. Completed course of Bactrim. Appreciate infectious disease recommendations. 5. Anxiety: Clonazepam as needed. 6. Tinea cruris: Continue topical ketoconazole. 7. DVT prophylaxis: SCDs. Discharge Planning Anticipate discharge home soon pending improved pain control. Jose Alejandro Goel MD Jul 15, 2017 12:00
[2017-07-15] MEDS: NAPROXEN SODIUM 550 MG TAB PO SCH (12:15)
[2017-07-15] MEDS: oxyCODONE/ACETAMINOPHEN 7.5 MG/325 MG TAB PO PRN (15:02)
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
[2017-07-15 16:00] VITALS: BP 127/61; PULSE 86; RESP 18; TEMP 98.2; O2SAT 98
[2017-07-15] MEDS: SODIUM CHLORIDE 0.9% FLUSH 10 ML FLUSH IV FLUSH SCH (21:00)
[2017-07-15 21:40] VITALS: BP 127/58; PULSE 91; RESP 16; TEMP 98; O2SAT 97
[2017-07-16] MEDS: oxyCODONE/ACETAMINOPHEN 7.5 MG/325 MG TAB PO PRN ×3 (00:32→15:51)
[2017-07-16] MEDS: NAPROXEN SODIUM 550 MG TAB PO SCH ×3 (00:39→20:33)
[2017-07-16 00:54] VITALS: BP 107/54; PULSE 71; RESP 16; TEMP 98.4; O2SAT 97
[2017-07-16] MEDS: CARISOPRODOL 350 MG TAB PO PRN ×3 (04:11→21:31)
[2017-07-16] MEDS: MORPHINE SULFATE 4 MG/ML INJ IV PUSH PRN ×4 (04:11→20:36)
[2017-07-16] MEDS: clonazePAM 1 MG TAB PO PRN ×3 (04:11→21:31)
[2017-07-16 04:45] VITALS: BP 117/62; PULSE 82; RESP 16; TEMP 97.5; O2SAT 96
[2017-07-16 08:27] VITALS: BP 114/59; PULSE 77; RESP 18; TEMP 97.8; O2SAT 96
[2017-07-16] MEDS: GABAPENTIN 300 MG CAP PO SCH ×3 (08:51→16:52)
[2017-07-16] MEDS: FAMOTIDINE 20 MG TAB PO SCH ×2 (08:51→20:33)
[2017-07-16] MEDS: REMOVE OLD NICODERM (NICOTINE) PATCH T-DERMAL SCH (08:52)
[2017-07-16] MEDS: NICOTINE 14 MG/24 HR PATCH T-DERMAL SCH (08:52)
[2017-07-16] MEDS: SODIUM CHLORIDE 0.9% FLUSH 10 ML FLUSH IV FLUSH SCH (09:00)
[2017-07-16] MEDS: REMOVE OLD PATCH T-DERMAL SCH (09:30)
[2017-07-16] MEDS: KETOCONAZOLE 2% CREAM 15 GM TOPICAL SCH (11:58)
[2017-07-16 12:17] VITALS: BP 130/60; PULSE 89; RESP 18; TEMP 98.2; O2SAT 98
[2017-07-16] MEDS: LIDOCAINE HCL 5% PATCH T-DERMAL SCH (12:41)
[2017-07-16] MEDS: MUPIROCIN 2% OINT 22 GM TUBE TOPICAL SCH (13:30)
--- NOTE | 2017-07-16 13:48 | HHI.PR ---
Subjective Remarks Follow-up back pain. Patient seen and examined. Patient transferred from chair to bed well, activity slowly improving. Complained of continued pain in his back. States that his current pain medication regimen has not been effective. Tolerating PT, transfers and ambulation with aid. Tolerating PO intake. Denies any recent fever, chills, cough, shortness of breath, abdominal pain, nausea, vomiting, diarrhea. Objective Vitals Vital Signs Date Time Temp Pulse Resp B/P (MAP) Pulse Ox O2 Delivery O2 Flow Rate FiO2 07/16/17 12: 98.2 89 18 130/60 (83) 98 07/16/17 08:27 97.8 77 18 114/59 (77) 96 07/16/17 04:45 97.5 82 16 117/62 (80) 96 07/16/17 00:54 98.4 71 16 107/54 (71) 97 07/15/17 21:40 98.0 91 16 127/58 (81) 97 07/15/17 16:00 98.2 86 18 127/61 (83) 98 I/O 07/15/17 07/15/17 07/15/17 07/16/17 07/16/17 07/16/17 06:59 14:59 22:59 06:59 14:59 22:59 Intake Total 280 ml Output Total 550 ml 500 ml 1450 ml 200 ml Balance -270 ml -500 ml -1450 ml -200 ml Intake Oral 280 ml Output Urine Total 550 ml 500 ml 1450 ml 200 ml # Bowel Movements 0 0 Imaging Last Impressions Needle Aspiration CT 07/08/17 0000 Signed Impressions: Service Date/Time: June 16:57 - CONCLUSION: 1. CT- guided right SI joint aspiration, as above. Constantino Vasquez MD Lower Extremity CT 07/07/17 0000 Signed Impressions: Service Date/Time: Friday, July 07, 2017 21:55 - CONCLUSION: 1. No acute findings. Stephan Abad MD Pelvis MRI 07/06/17 0000 Signed Impressions: Service Date/Time: Thursday, July 06, 2017 18:42 - CONCLUSION: Edema within both the iliac bone and sacrum surrounding the right sacroiliac joint. Findings are diagnostic of right sacroiliitis. This is secondary to nonspecific process. Inflammatory and infectious processes should be considered. No fracture is identified. Kaleb Rubio MD Facet Joint Injection X-Ray 07/05/17 0000 Signed Impressions: Service Date/Time: Wednesday, July 05, 2017 14:22 - CONCLUSION: Uncomplicated fluoroscopically guided right sacroiliac joint injection as above. Stephen Best Jr., MD Hip and Pelvis X-Ray 07/04/17 0000 Signed Impressions: Service Date/Time: Tuesday, July 04, 2017 08:25 - CONCLUSION: No acute fracture. Justo Mayen MD Needle Biopsy X-Ray 07/02/17 0000 Signed Impressions: Service Date/Time: Sunday, July 02, 2017 14:21 - CONCLUSION: Uncomplicated needle biopsy/aspiration of the right sacroiliac joint. Gus Cheng MD Hip MRI 07/01/17 0000 Signed Impressions: Service Date/Time: June 10:39 - CONCLUSION: 1. Significant edema around the right sacroiliac joint correlate for inflammatory arthritis. 2. Soft tissue edema overlying the hip. Mild edema at the origin of the vastus lateralis muscle Quinton Marte MD Brain MRI 07/01/17 0000 Signed Impressions: Service Date/Time: June 10:39 - CONCLUSION: Normal examination. Stephen Best Jr., MD Thoracic Spine MRI 06/26/17 0000 Signed Impressions: Service Date/Time: Monday, June 26, 2017 00:41 - CONCLUSION: 1. Tiny right paracentral protrusion at T10-11 without canal stenosis. 2. Small right paracentral protrusion at T11-12 without canal stenosis. 3. No compression fracture or spondylolisthesis. Justo Mayen MD Lumbar Spine MRI 06/26/17 0000 Signed Impressions: Service Date/Time: Monday, June 26, 2017 00:41 - CONCLUSION: 1. Minimal broad-based disc bulges at L3-4 and L4-5 levels without stenosis. 2. Mild broad-based protrusion more such the left at L5-S1. Justo Mayen MD Objective Remarks GENERAL: Well-developed well-nourished. In no acute distress. SKIN: Warm and dry. No lesions noted. HEENT: Normocephalic. Pupils equal and round and reactive to light. EOMs intact. Mucous membranes pink and moist. CARDIOVASCULAR: Regular rate and rhythm. No murmur appreciated. RESPIRATORY: No accessory muscle use. Clear to auscultation. Breath sounds equal bilaterally. GASTROINTESTINAL: Abdomen soft, non-tender, nondistended. Bowel sounds x4. MUSCULOSKELETAL: No obvious deformities. No clubbing or cyanosis. No edema. NEUROLOGICAL: Awake and alert. No focal neurological deficits. Moves upper and lower extremities spontaneously. Normal speech. PSYCHIATRIC: Appropriate mood and affect; insight and judgment normal. Procedures 07/02/2017 Aspiration biopsy of right SI joint by IR 07/05/2017 Steroid injection to right SI joint by IR 07/08 Bedside L leg I&D A/P Problem List: (1) Intractable back pain ICD Code: M54.9 - Dorsalgia, unspecified Status: Acute (2) Gait instability ICD Code: R26.81 - Unsteadiness on feet Status: Acute (3) Leukocytosis ICD Code: D72.829 - Elevated white blood cell count, unspecified Status: Acute (4) Tinea cruris ICD Code: B35.6 - Tinea cruris Assessment and Plan 1. Intractable back pain: Likely sacroiliitis. No fracture on hip MRI. Neurosurgery had previously recommended no surgical intervention (on previous hospitalization 06/05-06/09/17). Continue gabapentin, soma, and Oxycodone. Morphine IV for breakthrough. 2. RLE weakness, pain: Appreciate neurology recommendations. ?lumbosacral plexus injury. S/P EMG. Continue pain control, PT. 3. Gait instability: Secondary to above. No clear etiology on imaging. Continue PT. 4. Cellulitis/abscess of left calf: Culture grew MRSA. S/P incision & drainage. Completed course of Bactrim. Appreciate infectious disease recommendations. Recommendations now to re-aspirate if worse/lack of improvement after 2 weeks off abx. Will continue to monitor. 5. Anxiety: Clonazepam as needed. 6. Tinea cruris: Continue topical ketoconazole. 7. DVT prophylaxis: SCDs. Rosita Dinh Jul 16, 2017 13:48
[2017-07-16 16:03] VITALS: BP 114/56; PULSE 78; RESP 18; TEMP 97.8; O2SAT 98
[2017-07-16 21:10] VITALS: BP 135/62; PULSE 89; RESP 18; TEMP 98; O2SAT 98
[2017-07-17] VITALS: BP 117/60; PULSE 66; RESP 20; TEMP 97.4; O2SAT 97
[2017-07-17] MEDS: MORPHINE SULFATE 4 MG/ML INJ IV PUSH PRN ×5 (04:09→21:57)
[2017-07-17] MEDS: MUPIROCIN 2% OINT 22 GM TUBE TOPICAL SCH ×3 (04:09→20:40)
[2017-07-17] MEDS: SODIUM CHLORIDE 0.9% FLUSH 10 ML FLUSH IV FLUSH SCH ×3 (04:09→20:40)
[2017-07-17] MEDS: KETOCONAZOLE 2% CREAM 15 GM TOPICAL SCH ×3 (04:10→21:00)
[2017-07-17 06:03] VITALS: BP 110/65; PULSE 55; RESP 20; TEMP 97.6; O2SAT 97
[2017-07-17] MEDS: clonazePAM 1 MG TAB PO PRN ×2 (07:00→16:08)
[2017-07-17] MEDS: CARISOPRODOL 350 MG TAB PO PRN ×2 (07:00→16:08)
[2017-07-17 08:00] VITALS: BP 120/68; PULSE 76; RESP 18; TEMP 97.6; O2SAT 97
[2017-07-17] MEDS: FAMOTIDINE 20 MG TAB PO SCH ×2 (08:59→20:40)
[2017-07-17] MEDS: LIDOCAINE HCL 5% PATCH T-DERMAL SCH (09:00)
[2017-07-17] MEDS: NAPROXEN SODIUM 550 MG TAB PO SCH ×2 (09:00→12:08)
[2017-07-17] MEDS: GABAPENTIN 300 MG CAP PO SCH ×3 (09:00→18:08)
[2017-07-17] MEDS: NICOTINE 14 MG/24 HR PATCH T-DERMAL SCH (09:00)
[2017-07-17] MEDS: REMOVE OLD NICODERM (NICOTINE) PATCH T-DERMAL SCH (09:00)
[2017-07-17] MEDS: REMOVE OLD PATCH T-DERMAL SCH (09:30)
[2017-07-17 12:00] VITALS: BP 119/60; PULSE 81; RESP 16; TEMP 97.1; O2SAT 97
[2017-07-17] MEDS: oxyCODONE/ACETAMINOPHEN 7.5 MG/325 MG TAB PO PRN ×3 (12:22→23:28)
[2017-07-17 16:00] VITALS: BP 134/64; PULSE 81; RESP 18; TEMP 98.6; O2SAT 97
--- NOTE | 2017-07-17 16:14 | HHI.PR ---
Subjective Remarks Follow-up back pain. Patient seen and examined. Lying flat in bed, complaints of continued back pain. States pain medication is not lasting very long. Continues to work with therapy. Tolerating PO intake. Denies any recent fever, chills, cough, shortness of breath, ab pain, n/v/d or dysuria. Objective Vitals Vital Signs Date Time Temp Pulse Resp B/P (MAP) Pulse Ox O2 Delivery O2 Flow Rate FiO2 07/17/17 12:00 97.1 81 16 119/60 (79) 97 07/17/17 08:00 97.6 76 18 120/68 (85) 97 07/17/17 06:03 97.6 55 20 110/65 (80) 97 07/17/17 00:00 97.4 66 20 117/60 (79) 97 07/16/17 21:10 98.0 89 18 135/62 (86) 98 I/O 07/16/17 07/16/17 07/16/17 07/17/17 07/17/17 07/17/17 07:00 15:00 23:00 07:00 15:00 23:00 Intake Total 480 ml 240 ml Output Total 1450 ml 200 ml 1300 ml Balance -1450 ml -200 ml 480 ml -1060 ml Intake Oral 480 ml 240 ml Output Urine Total 1450 ml 200 ml 1300 ml # Voids 3 # Bowel Movements 0 Imaging Last Impressions Needle Aspiration CT 07/08/17 0000 Signed Impressions: Service Date/Time: June 16:57 - CONCLUSION: 1. CT- guided right SI joint aspiration, as above. Constantino Vasquez MD Lower Extremity CT 07/07/17 0000 Signed Impressions: Service Date/Time: Friday, July 07, 2017 21:55 - CONCLUSION: 1. No acute findings. Stephan Abad MD Pelvis MRI 07/06/17 0000 Signed Impressions: Service Date/Time: Thursday, July 06, 2017 18:42 - CONCLUSION: Edema within both the iliac bone and sacrum surrounding the right sacroiliac joint. Findings are diagnostic of right sacroiliitis. This is secondary to nonspecific process. Inflammatory and infectious processes should be considered. No fracture is identified. Kaleb Rubio MD Facet Joint Injection X-Ray 07/05/17 0000 Signed Impressions: Service Date/Time: Wednesday, July 05, 2017 14:22 - CONCLUSION: Uncomplicated fluoroscopically guided right sacroiliac joint injection as above. Stephen Best Jr., MD Hip and Pelvis X-Ray 07/04/17 Signed Impressions: Service Date/Time: Tuesday, July 04, 2017 08:25 - CONCLUSION: No acute fracture. Justo Mayen MD Needle Biopsy X-Ray 07/02/17 0000 Signed Impressions: Service Date/Time: Sunday, July 02, 2017 14:21 - CONCLUSION: Uncomplicated needle biopsy/aspiration of the right sacroiliac joint. Gus Cheng MD Hip MRI 07/01/17 0000 Signed Impressions: Service Date/Time: June 10:39 - CONCLUSION: 1. Significant edema around the right sacroiliac joint correlate for inflammatory arthritis. 2. Soft tissue edema overlying the hip. Mild edema at the origin of the vastus lateralis muscle Quinton Marte MD Brain MRI 07/01/17 Signed Impressions: Service Date/Time: June 10:39 - CONCLUSION: Normal examination. Stephen Best Jr., MD Thoracic Spine MRI 06/26/17 Signed Impressions: Service Date/Time: Monday, June 26, 2017 00:41 - CONCLUSION: 1. Tiny right paracentral protrusion at T10-11 without canal stenosis. 2. Small right paracentral protrusion at T11-12 without canal stenosis. 3. No compression fracture or spondylolisthesis. Justo Mayen MD Lumbar Spine MRI 06/26/17 Signed Impressions: Service Date/Time: Monday, June 26, 2017 00:41 - CONCLUSION: 1. Minimal broad-based disc bulges at L3-4 and L4-5 levels without stenosis. 2. Mild broad-based protrusion more such the left at L5-S1. Justo Mayen MD Objective Remarks GENERAL: Well-developed well-nourished. In no acute distress. SKIN: Warm and dry. No lesions noted. HEENT: Normocephalic. Pupils equal and round and reactive to light. EOMs intact. Mucous membranes pink and moist. CARDIOVASCULAR: Regular rate and rhythm. No murmur appreciated. RESPIRATORY: No accessory muscle use. Clear to auscultation. Breath sounds equal bilaterally. GASTROINTESTINAL: Abdomen soft, non-tender, nondistended. Bowel sounds x4. MUSCULOSKELETAL: No obvious deformities. No clubbing or cyanosis. No edema. NEUROLOGICAL: Awake and alert. No focal neurological deficits. Moves upper and lower extremities spontaneously. Normal speech. PSYCHIATRIC: Appropriate mood and affect; insight and judgment normal. Procedures 07/02/2017 Aspiration biopsy of right SI joint by IR 07/05/2017 Steroid injection to right SI joint by IR 07/08 Bedside L leg I&D A/P Problem List: (1) Intractable back pain ICD Code: M54.9 - Dorsalgia, unspecified Status: Acute (2) Gait instability ICD Code: R26.81 - Unsteadiness on feet Status: Acute (3) Leukocytosis ICD Code: D72.829 - Elevated white blood cell count, unspecified Status: Acute (4) Tinea cruris ICD Code: B35.6 - Tinea cruris Assessment and Plan 1. Intractable back pain: Likely sacroiliitis. No fracture on hip MRI. Neurosurgery had previously recommended no surgical intervention (on previous hospitalization 06/05-06/09/17). Continue gabapentin, soma, and Oxycodone. Morphine IV for breakthrough. Dr. Garay in today to see patient, appreciate further recommendations. 2. RLE weakness, pain: Appreciate neurology recommendations. ?lumbosacral plexus injury. S/P EMG. Continue pain control, PT. 3. Gait instability: Secondary to above. No clear etiology on imaging. Continue PT. 4. Cellulitis/abscess of left calf: Culture grew MRSA. S/P incision & drainage. Completed course of Bactrim. Appreciate infectious disease recommendations. Recommendations now to re-aspirate if worse/lack of improvement after 2 weeks off abx. Will continue to monitor. 5. Anxiety: Clonazepam as needed. 6. Tinea cruris: Continue topical ketoconazole. 7. DVT prophylaxis: SCDs. Discussed with patient, bedside RN and Dr. Goel. No new changes to medications at this time. Rosita Dinh Jul 17, 2017 16:14
--- NOTE | 2017-07-17 20:54 | HHI.NSPN ---
History Chief Complaint: Right buttock and back pain. Interval History Patient continues with physical therapy. He states that he is able to ambulate a longer distance, although still has rather severe pain in the right gluteal region with radiation to the posterior right lower extremity. He states that in general he has improved over the past week. Exam Results Vital Signs Date Time Temp Pulse Resp B/P (MAP) Pulse Ox O2 Delivery O2 Flow Rate FiO2 07/17/17 16:00 98.6 81 18 134/64 (87) 97 Intake and Output 07/17/17 07/17/17 07/18/17 08:00 16:00 00:00 Intake Total 240 ml Output Total 900 ml Balance -660 ml Physical Examination General: The patient is awake & alert. He readily interacts. His affect is normal. He appears moderately to severely uncomfortable as the RLE is evaluated due to pain. Skin: Warm & dry. There is an intact dressing to the left lateral calf. Otherwise there are no rashes, ulcerations or lesions. Back: The midline lumbosacral spine is TTP. As the right back is palpated laterally from the spine it becomes increasingly tender. Extremities: He is tender to palpation of the right mid to upper greater than lower gluteal musculature. No significant tenderness over the right lateral hip. Mild tenderness over the proximal posterior right thigh. Positive discomfort in the right gluteal musculature with right lower extremity range of motion and motor testing Neurological: AAOx3. Speech clear & appropriate. Follows simple commands w/o difficulty. Sensation is intact to light touch throughout the lower extremities He continues to have significant pain with right lower extremity motor testing, but with encouragement is able to maintain 5/5 strength throughout all lower extremity major flexion and extension groups and inversion/eversion of foot. No ankle clonus Medical Decision Making Impression and Plan Impression: Patient's lower extremity sensorimotor function is essentially normal now. Possible initial sciatic nerve contusion combined with gluteal myofascial pain. Patient's pain is presently primarily in the mid upper gluteal region, particularly at the gluteal attachment to the iliac crest. Plan: Findings were discussed with the patient. Continue conservative treatment No neurosurgical intervention planned Neurologic exam appears stable at this point He is indicating desire to be discharged home, with outpatient physical therapy if possible. Zacarias Garay MD Jul 17, 2017 20:54
[2017-07-17 20:56] VITALS: BP 109/55; PULSE 90; RESP 20; TEMP 97.8; O2SAT 98
[2017-07-18 00:48] VITALS: BP 129/78; PULSE 84; RESP 20; TEMP 97.6; O2SAT 99
[2017-07-18] MEDS: CARISOPRODOL 350 MG TAB PO PRN ×3 (02:15→15:19)
[2017-07-18] MEDS: clonazePAM 1 MG TAB PO PRN ×3 (02:16→15:19)
[2017-07-18 04:38] VITALS: BP 125/82; PULSE 82; RESP 19; TEMP 98.5; O2SAT 99
[2017-07-18] MEDS: MORPHINE SULFATE 4 MG/ML INJ IV PUSH PRN (05:36)
[2017-07-18 08:24] LABS: AUTOMATED NEUTROPHIL # 3.3 TH/MM3 (1.8-7.7); BASOPHIL % 0.7 % (0.0-2.0); EOSINOPHIL # 0.3 TH/MM3 (0-0.4); EOSINOPHIL % 4.5 % (0.0-4.0); HEMATOCRIT 35.4 % (39.0-51.0); HEMO FLAGS DIFF FINAL; LYMPH % 34.3 % (9.0-44.0); LYMPHOCYTE # 2.2 TH/MM3 (1.0-4.8); MEAN CELL VOLUME 79.3 FL (80.0-100.0); MEAN CORPUSCULAR HEMOGLOBIN 25.4 PG (27.0-34.0); MONO % 8.7 % (0.0-8.0); NEUT % 51.8 % (16.0-70.0); PLATELET COUNT 149 TH/MM3 (150-450); RED BLOOD COUNT 4.46 MIL/MM3 (4.50-5.90); WHITE BLOOD COUNT 6.4 TH/MM3 (4.0-11.0)
[2017-07-18 08:34] LABS: BICARBONATE 28.1 MEQ/L (21.0-32.0); POTASSIUM 3.9 MEQ/L (3.5-5.1)
[2017-07-18] MEDS: NAPROXEN SODIUM 550 MG TAB PO SCH (08:46)
[2017-07-18] MEDS: GABAPENTIN 300 MG CAP PO SCH ×2 (08:46→12:39)
[2017-07-18] MEDS: FAMOTIDINE 20 MG TAB PO SCH (08:46)
[2017-07-18] MEDS: NICOTINE 14 MG/24 HR PATCH T-DERMAL SCH (09:00)
[2017-07-18] MEDS: REMOVE OLD NICODERM (NICOTINE) PATCH T-DERMAL SCH (09:00)
[2017-07-18] MEDS: KETOCONAZOLE 2% CREAM 15 GM TOPICAL SCH (09:00)
[2017-07-18] MEDS: LIDOCAINE HCL 5% PATCH T-DERMAL SCH (09:00)
[2017-07-18] MEDS: SODIUM CHLORIDE 0.9% FLUSH 10 ML FLUSH IV FLUSH SCH (09:00)
[2017-07-18] MEDS: MUPIROCIN 2% OINT 22 GM TUBE TOPICAL SCH (09:00)
[2017-07-18] MEDS: REMOVE OLD PATCH T-DERMAL SCH (09:12)
[2017-07-18] MEDS: oxyCODONE/ACETAMINOPHEN 7.5 MG/325 MG TAB PO PRN ×2 (12:41→15:20)
[2017-07-18] MEDS ORDERED: CARI350T25 PO (14:14)
[2017-07-18] MEDS ORDERED: KETO2CRE TOPICAL (14:14)
[2017-07-18] MEDS ORDERED: NAPR550 PO (14:14)
[2017-07-18] MEDS ORDERED: OXYC1TAB35 PO (14:14)
[2017-07-18] MEDS ORDERED: CLON1TAB PO (14:14)
[2017-07-18] MEDS ORDERED: NEUR300C PO (14:14)
--- NOTE | 2017-07-18 14:15 | HHI.DCPOC ---
Discharge Care Plan Diagnosis: (1) Tinea cruris (2) Abscess of calf (3) Intractable pain (4) Gait instability (5) Sciatica of right side (6) Leukocytosis (7) Intractable back pain Goals to Promote Your Health * To prevent worsening of your condition and complications * To maintain your health at the optimal level Directions to Meet Your Goals Take your medications as prescribed Follow your dietary instruction Follow activity as directed Keep your appointments as scheduled Take your immunizations and boosters as scheduled If your symptoms worsen call your PCP, if no PCP go to Urgent Care Center or Emergency Room Smoking is Dangerous to Your Health. Avoid second hand smoke Call the 24-hour hour crisis hotline for domestic abuse at Jose Alejandro Goel MD Jul 18, 2017 14:14
--- NOTE | 2017-07-18 14:20 | HHI.PR ---
Subjective Remarks Follow up back/hip/leg pain. Patient is seen in wheelchair in the hallway. He returns to his room to get his crutches and I watched him get up from the wheelchair and ambulate slowly across the room and into the hallway. He states that he wants to go home. Objective Vitals Vital Signs Date Time Temp Pulse Resp B/P (MAP) Pulse Ox O2 Delivery O2 Flow Rate FiO2 07/18/17 04:38 98.5 82 19 125/82 (96) 99 07/18/17 00:48 97.6 84 20 129/78 (95) 99 07/17/17 20:56 97.8 90 20 109/55 (73) 98 07/17/17 16:00 98.6 81 18 134/64 (87) 97 I/O 07/17/17 07/17/17 07/17/17 07/18/17 07/18/17 07/18/17 06:59 14:59 22:59 06:59 14:59 22:59 Intake Total 240 ml 240 ml Output Total 1300 ml Balance -1060 ml 240 ml Intake Oral 240 ml 240 ml Output Urine Total 1300 ml # Voids 1 Result Diagram: 07/18/17 0751 07/18/17 0751 Imaging Last Impressions Needle Aspiration CT 07/08/17 0000 Signed Impressions: Service Date/Time: June 16:57 - CONCLUSION: 1. CT- guided right SI joint aspiration, as above. Constantino Vasquez MD Lower Extremity CT 07/07/17 0000 Signed Impressions: Service Date/Time: Friday, July 07, 2017 21:55 - CONCLUSION: 1. No acute findings. Stephan Abad MD Pelvis MRI 07/06/17 0000 Signed Impressions: Service Date/Time: Thursday, July 06, 2017 18:42 - CONCLUSION: Edema within both the iliac bone and sacrum surrounding the right sacroiliac joint. Findings are diagnostic of right sacroiliitis. This is secondary to nonspecific process. Inflammatory and infectious processes should be considered. No fracture is identified. Kaleb Rubio MD Facet Joint Injection X-Ray 07/05/17 0000 Signed Impressions: Service Date/Time: Wednesday, July 05, 2017 14:22 - CONCLUSION: Uncomplicated fluoroscopically guided right sacroiliac joint injection as above. Stephen Best Jr., MD Hip and Pelvis X-Ray 07/04/17 0000 Signed Impressions: Service Date/Time: Tuesday, July 04, 2017 08:25 - CONCLUSION: No acute fracture. Justo Mayen MD Needle Biopsy X-Ray 07/02/17 0000 Signed Impressions: Service Date/Time: Sunday, July 02, 2017 14:21 - CONCLUSION: Uncomplicated needle biopsy/aspiration of the right sacroiliac joint. Gus Cheng MD Hip MRI 07/01/17 0000 Signed Impressions: Service Date/Time: June 10:39 - CONCLUSION: 1. Significant edema around the right sacroiliac joint correlate for inflammatory arthritis. 2. Soft tissue edema overlying the hip. Mild edema at the origin of the vastus lateralis muscle Quinton Marte MD Brain MRI 07/01/17 0000 Signed Impressions: Service Date/Time: June 10:39 - CONCLUSION: Normal examination. Stephen Best Jr., MD Thoracic Spine MRI 06/26/17 0000 Signed Impressions: Service Date/Time: Monday, June 26, 2017 00:41 - CONCLUSION: 1. Tiny right paracentral protrusion at T10-11 without canal stenosis. 2. Small right paracentral protrusion at T11-12 without canal stenosis. 3. No compression fracture or spondylolisthesis. Justo Mayen MD Lumbar Spine MRI 06/26/17 0000 Signed Impressions: Service Date/Time: Monday, June 26, 2017 00:41 - CONCLUSION: 1. Minimal broad-based disc bulges at L3-4 and L4-5 levels without stenosis. 2. Mild broad-based protrusion more such the left at L5-S1. Justo Mayen MD Objective Remarks General: No acute distress. Heart: Regular rate and rhythm. No murmur. Lungs: Clear to auscultation bilaterally. No wheezes, rales, or rhonchi. Breathing is nonlabored. Abdomen: Soft, nontender, nondistended. Extremities: No lower extremity edema. Psych: Alert and oriented. Procedures 07/02/2017 Aspiration biopsy of right SI joint by IR 07/05/2017 Steroid injection to right SI joint by IR 07/08 Bedside L leg I&D Urinary Catheter: No Vascular Central Line Catheter: No A/P Problem List: (1) Intractable back pain ICD Code: M54.9 - Dorsalgia, unspecified Status: Acute (2) Gait instability ICD Code: R26.81 - Unsteadiness on feet Status: Acute (3) Leukocytosis ICD Code: D72.829 - Elevated white blood cell count, unspecified Status: Acute (4) Tinea cruris ICD Code: B35.6 - Tinea cruris Assessment and Plan 1. Intractable back pain: Likely sacroiliitis. No fracture on hip MRI. Neurosurgery had previously recommended no surgical intervention (on previous hospitalization 06/05-06/09/17). Continue gabapentin, soma. Will adjust pain medications again. 2. RLE weakness, pain: Appreciate neurology recommendations. ?lumbosacral plexus injury. S/P EMG. Continue pain control, PT. 3. Gait instability: Secondary to above. No clear etiology on imaging. Continue PT. 4. Cellulitis/abscess of left calf: Culture grew MRSA. S/P incision & drainage. Completed course of Bactrim. Appreciate infectious disease recommendations. 5. Anxiety: Clonazepam as needed. 6. Tinea cruris: Continue topical ketoconazole. 7. DVT prophylaxis: SCDs. Discharge Planning Discharge home in stable condition. The patient is able to ambulate with an assistive device. He states that his girlfriend is going to purchase crutches for him today. He has a walker and wheelchair available. He is going to be living with his girlfriend and her mother, who can help him get around and also help with his medications. He was cautioned regarding the medications that he has been taking. He was advised of the risk involved with taking soma, Percocet , and clonazepam. The dose of clonazepam was decreased at discharge. He is to wean off the medication slowly and follow-up with a PCP. He was advised to not drive until he is off all narcotics. He is to avoid alcohol while taking these medications. He is not to take the medications if he is already drowsy/ lethargic. Jose Alejandro Goel MD Jul 18, 2017 14:20
--- NOTE | 2017-07-18 18:04 | HHI.DS ---
Discharge Summary Admission Date Jun 28, 2017 at 08:36 Discharge Date: Jul 18, 2017 Admitting Diagnosis Inability to ambulate, Right lower extremity sciatica. (1) Intractable back pain ICD Code: M54.9 - Dorsalgia, unspecified Status: Acute (2) Gait instability ICD Code: R26.81 - Unsteadiness on feet Status: Acute (3) Leukocytosis ICD Code: D72.829 - Elevated white blood cell count, unspecified Status: Acute (4) Tinea cruris ICD Code: B35.6 - Tinea cruris Procedures 07/02/2017 Aspiration biopsy of right SI joint by IR 07/05/2017 Steroid injection to right SI joint by IR 07/08 Bedside L leg I&D Brief History - From Admission This is a 21-year-old male with PMH of Asthma who presented to the ER with complaints of severe right sided sciatic pain. Recent admit 06/05-06/09/17 for similar complaints, +severe back pain following fall while skateboarding, s/p eval by [facility], MRI w/ small paracentral protrusion on T10-11, and T11-12, minimal disc bulges L3-4 and L4-5, no surgical indication, s/p Decadron and PT. [facility] and was told he could not be referred for further PT, also told they could not assist him w/ wheelchair. Has been unable to ambulate since last discharge due to severe pain. MRI T/L-Spine today w/ similar findings to previous imaging. S/p Toradol and Morphine IV in ER w/ some improvement. CBC/BMP: 07/18/17 0751 07/18/17 0751 Significant Findings Laboratory Tests Test 07/18/17 07:51 Red Blood Count 4.46 MIL/MM3 (4.50-5.90) Hemoglobin 11.3 GM/DL (13.0-17.0) Hematocrit 35.4 % (39.0-51.0) Mean Corpuscular Volume 79.3 FL (80.0-100.0) Mean Corpuscular Hemoglobin 25.4 PG (27.0-34.0) Platelet Count 149 TH/MM3 (150-450) Mean Platelet Volume 6.9 FL (7.0-11.0) Monocytes (%) (Auto) 8.7 % (0.0-8.0) Eosinophils (%) (Auto) 4.5 % (0.0-4.0) Imaging Last Impressions Needle Aspiration CT 07/08/17 0000 Signed Impressions: Service Date/Time: June 16:57 - CONCLUSION: 1. CT- guided right SI joint aspiration, as above. Constantino Vasquez MD Lower Extremity CT 07/07/17 0000 Signed Impressions: Service Date/Time: Friday, July 07, 2017 21:55 - CONCLUSION: 1. No acute findings. Stephan Abad MD Pelvis MRI 07/06/17 0000 Signed Impressions: Service Date/Time: Thursday, July 06, 2017 18:42 - CONCLUSION: Edema within both the iliac bone and sacrum surrounding the right sacroiliac joint. Findings are diagnostic of right sacroiliitis. This is secondary to nonspecific process. Inflammatory and infectious processes should be considered. No fracture is identified. Kaleb Rubio MD Facet Joint Injection X-Ray 07/05/17 0000 Signed Impressions: Service Date/Time: Wednesday, July 05, 2017 14:22 - CONCLUSION: Uncomplicated fluoroscopically guided right sacroiliac joint injection as above. Stephen Best Jr., MD Hip and Pelvis X-Ray 07/04/17 0000 Signed Impressions: Service Date/Time: Tuesday, July 04, 2017 08:25 - CONCLUSION: No acute fracture. Justo Mayen MD Needle Biopsy X-Ray 07/02/17 0000 Signed Impressions: Service Date/Time: Sunday, July 02, 2017 14:21 - CONCLUSION: Uncomplicated needle biopsy/aspiration of the right sacroiliac joint. Gus Cheng MD Hip MRI 07/01/17 0000 Signed Impressions: Service Date/Time: June 10:39 - CONCLUSION: 1. Significant edema around the right sacroiliac joint correlate for inflammatory arthritis. 2. Soft tissue edema overlying the hip. Mild edema at the origin of the vastus lateralis muscle Quinton Marte MD Brain MRI 07/01/17 0000 Signed Impressions: Service Date/Time: June 10:39 - CONCLUSION: Normal examination. Stephen Best Jr., MD Thoracic Spine MRI 06/26/17 0000 Signed Impressions: Service Date/Time: Monday, June 26, 2017 00:41 - CONCLUSION: 1. Tiny right paracentral protrusion at T10-11 without canal stenosis. 2. Small right paracentral protrusion at T11-12 without canal stenosis. 3. No compression fracture or spondylolisthesis. Justo Mayen MD Lumbar Spine MRI 06/26/17 0000 Signed Impressions: Service Date/Time: Monday, June 26, 2017 00:41 - CONCLUSION: 1. Minimal broad-based disc bulges at L3-4 and L4-5 levels without stenosis. 2. Mild broad-based protrusion more such the left at L5-S1. Justo Mayen MD PE at Discharge GENERAL: Well-developed well-nourished. In no acute distress. SKIN: Warm and dry. No lesions noted. HEENT: Normocephalic. Pupils equal and round and reactive to light. EOMs intact. Mucous membranes pink and moist. CARDIOVASCULAR: Regular rate and rhythm. No murmur appreciated. RESPIRATORY: No accessory muscle use. Clear to auscultation. Breath sounds equal bilaterally. GASTROINTESTINAL: Abdomen soft, non-tender, nondistended. Bowel sounds x4. MUSCULOSKELETAL: No obvious deformities. No clubbing or cyanosis. No edema. NEUROLOGICAL: Awake and alert. No focal neurological deficits. Moves upper and lower extremities spontaneously. Normal speech. PSYCHIATRIC: Appropriate mood and affect; insight and judgment normal. Pt update on day of discharge Discharge home in stable condition. The patient is able to ambulate with an assistive device. He states that his girlfriend is going to purchase crutches for him today. He has a walker and wheelchair available. He is going to be living with his girlfriend and her mother, who can help him get around and also help with his medications. He was cautioned regarding the medications that he has been taking. He was advised of the risk involved with taking soma, Percocet , and clonazepam. The dose of clonazepam was decreased at discharge. He is to wean off the medication slowly and follow-up with a PCP. He was advised to not drive until he is off all narcotics. He is to avoid alcohol while taking these medications. He is not to take the medications if he is already drowsy/ lethargic. Hospital Course Patient came into ED with complaints of severe right sided sciatic pain. Recently admitted on 06/05-06/09/17 for similar complaints, +severe back pain following fall while skateboarding, s/p eval by [facility], MRI w/ small paracentral protrusion on T10-11, and T11-12, minimal disc bulges L3-4 and L4-5, no surgical indication, s/p Decadron and PT. [facility] and was told he could not be referred for further PT, also told they could not assist him w/ wheelchair. Has been unable to ambulate since last discharge due to severe pain. MRI T/L-Spine today w/ similar findings to previous imaging. Intractable back pain and gait instability: Likely sacroiliitis. MRI done showing no fracture of the right hip. Neurosurgery had previously recommended no surgical intervention (on previous hospitalization 06/05-06/09/17). Continued gabapentin, soma, Naproxen and Oxycodone, Morphine IV for breakthrough. A right sacroiliac joint injection was performed on 07/05/17. Stated pain relief at the time of injection. Patient received continued PT while admitted. Was seen by Dr. Garay with continued conservative management and no surgical intervention planned. Neurologic exam stable at time of discharge. Cellulitis/abscess of left calf: Culture grew MRSA. S/P incision & drainage. Completed course of Bactrim. Was given Mupirocin cream. Tinea cruris: Continue topical ketoconazole. Pt Condition on Discharge: Stable Discharge Disposition: Discharge Home Discharge Time: > 30 minutes Discharge Instructions DIET: Follow Instructions for: As Tolerated, No Restrictions Activities you can perform: Regular-No Restrictions Activities to Avoid: Driving Other Activity Instructions: No driving while taking narcotics. Activity with assistive device. Follow up Referrals: Neurosurgery - 2 Weeks with Zacarias Garay MD PCP Follow-up - 1 Week Physical Medicine & Rehab - 2 Weeks with Jeimy Pastrana MD New Medications: Clonazepam (Clonazepam) 1 Mg Tab 1 MG PO TID PRN for MODERATE TO SEVERE ANXIETY, #21 TAB 0 Refills Carisoprodol (Carisoprodol) 350 Mg Tablet 350 MG PO TID PRN for MUSCLE SPASM, #21 TAB 0 Refills Gabapentin (Neurontin) 300 Mg Cap 600 MG PO TID for Nerve pain, #90 CAP 0 Refills Ketoconazole Topical (Ketoconazole Topical) 2% Cream 1 APPLIC TOPICAL Q12HR for Rash, #15 GM 0 Refills Naproxen Sodium DS (Anaprox DS) 550 Mg Tab 550 MG PO BID for Pain Management, #10 TAB 0 Refills Oxycodone-Acetaminophen (Oxycodone-Acetaminophen) 7.5-325 mg Tab 1 TAB PO Q6H PRN for PAIN SCALE 5 TO 10, #30 TAB 0 Refills Discontinued Medications: Cyclobenzaprine (Flexeril) 10 Mg Tab 10 MG PO TID for Muscle Spasm, #30 TAB 1 Refill Gabapentin (Neurontin) 300 Mg Cap 300 MG PO BID for Pain Management, #20 CAP 1 Refill Naproxen (Naproxen) 500 Mg Tab 1000 MG PO BID, #60 TAB 0 Refills Prednisone (Prednisone) 10 Mg Tab 10 MG PO BID, TAB 0 Refills Rosita Dinh Jul 18, 2017 18:04 Jose Alejandro Goel MD Jul 19, 2017 07:58
== END 2017-07-18 17:30 | disposition home or self-care (01) | DRG 552 ==
LOC: NEPE 20:27 → NEDA 06-26 03:17 → NEPFCDU 06-26 03:50 → OBSVTOIN 06-28 08:36 → N05B 06-29 13:20
PROVIDERS: ADMIT Family Medicine; ATTEND Family Medicine
PROC: 0S973ZX Drainage of Right Sacroiliac Joint, Percutaneous Approach, Diagnostic (ICD-10-PCS; principal; 2017-07-02)
PROC: 3E0U3BZ Introduction of Anesthetic Agent into Joints, Percutaneous Approach (ICD-10-PCS; 2017-07-05)
PROC: 3E0U33Z Introduction of Anti-inflammatory into Joints, Percutaneous Approach (ICD-10-PCS; 2017-07-05)
PROC: 0H9LXZZ Drainage of Left Lower Leg Skin, External Approach (ICD-10-PCS; 2017-07-06)
PROC: 0S973ZX Drainage of Right Sacroiliac Joint, Percutaneous Approach, Diagnostic (ICD-10-PCS; 2017-07-08)
DX: M46.1 Sacroiliitis, not elsewhere classified (principal); L02.416 Cutaneous abscess of left lower limb; M51.24 Other intervertebral disc displacement, thoracic region; L03.116 Cellulitis of left lower limb; B35.6 Tinea cruris; D72.829 Elevated white blood cell count, unspecified; J45.909 Unspecified asthma, uncomplicated; M54.31 Sciatica, right side; M51.26 Other intervertebral disc displacement, lumbar region; R26.89 Other abnormalities of gait and mobility; B95.62 Methicillin resistant Staphylococcus aureus infection as the cause of diseases classified elsewhere; F41.9 Anxiety disorder, unspecified; T38.0X5A Adverse effect of glucocorticoids and synthetic analogues, initial encounter; S74.01XD Injury of sciatic nerve at hip and thigh level, right leg, subsequent encounter; F17.210 Nicotine dependence, cigarettes, uncomplicated
CPT/HCPCS: 20225; 20610; 27096; 70551; 72146; 72148; 72195; 73502; 73700; 73721; 76937; 77002; 77012; 80048; 80053; 85025; 85652; 86140; 86403; 86703; 87015; 87070; 87077; 87102; 87116; 87147; 87176; 87186; 87205; 87206; 87491; 87591; 96374; 96375; 96376; G0260; G0378; G8987-GP; G8988-GP; J1170; J1885; J2270; J2920; J2930; J3301; J7512; Q9967

== ENCOUNTER 2017-09-10 22:39 | Emergency (ER) | payer SELFPAY ==
[~2017-09-10] VITALS: Ht 190.5 cm; Wt 79.5 kg
[~2017-09-10 22:39] MED LIST changes: +CARI350T25 PO; +CLON1TAB PO; -CYCL1TAB29 PO; -HYDR-3288 PO; +KETO2CRE TOPICAL; -NAPR500T PO; +NAPR550 PO; -NORT25CA PO; +OXYC1TAB35 PO; -PERI8.6T PO; -PRED10 PO; -ULTR50TA5 PO
[2017-09-10 22:45] VITALS: BP 137/90; PULSE 120; RESP 16; TEMP 98.5; O2SAT 100
[2017-09-10] MEDS ORDERED: KETOROLAC TROMETHAMINE 60 MG/2 ML (IM) VIAL IM ONE ×2 (23:45)
[2017-09-10] MEDS ORDERED: ORPHENADRINE INJ 60 MG/2 ML AMP IM ONE ×2 (23:45)
[2017-09-10] MEDS ORDERED: BACL10TA PO ×2 (23:50)
[2017-09-10] MEDS ORDERED: KETO10 PO ×2 (23:50)
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
== END 2017-09-11 00:58 | disposition home or self-care (01) ==
LOC: NEPD 22:39
DX: M54.31 Sciatica, right side (principal); J45.909 Unspecified asthma, uncomplicated; Z72.0 Tobacco use; Z79.899 Other long term (current) drug therapy
CPT/HCPCS: 96372; 99284; J1885; J2360

== ENCOUNTER 2018-06-08 17:30 | Observation (INO) ==
[2018-06-08] MEDS ORDERED: Magnesium Sulfate Inj 2 GM in Sodium Chlor 0.9% Inj 96 ML IV.SIG ONE (17:34)
[2018-06-08] MEDS ORDERED: Dexamethasone Inj 20 MG/5 ML Vial IV.PUSH ONE (17:34)
[2018-06-08 17:54] LABS: Baso # (Auto) 0.1 th/mm3 (0.0-0.2); Eos # (Auto) 1.1 th/mm3 (0.0-0.4); Eos % (Auto) 11.2 % (0.0-4.0); Hematocrit 39.3 % (39.0-51.0); Hemoglobin 12.8 gm/dL (13.0-17.0); Lymph # (Auto) 2.4 th/mm3 (1.0-4.8); Lymph % (Auto) 23.5 % (9.0-44.0); Mean Corpuscular HGB Conc 32.6 % (32.0-36.0); Mean Corpuscular Hemoglobin 25.9 pg (27.0-34.0); Mean Corpuscular Volume 79.3 fL (80.0-100.0); Mean Platelet Volume 7.8 fL (7.0-11.0); Mono # (Auto) 0.6 th/mm3 (0.0-0.9); Mono % (Auto) 6.3 % (0.0-8.0); Neut # (Auto) 5.9 th/mm3 (1.8-7.7); Platelet Count 249 th/mm3 (150-450); Red Blood Count 4.95 mil/mm3 (4.50-5.90); Red Cell Distribution Width 14.2 % (11.6-17.2); White Blood Count 10.1 th/mm3 (4.0-11.0)
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
[2018-06-08 18:11] LABS: Chloride 105 meq/L (98-107); Sodium 140 meq/L (136-145)
[2018-06-08 18:13] LABS: Calcium 8.9 mg/dL (8.5-10.1)
[2018-06-08 18:14] LABS: Anion Gap 6 meq/L (5-15); Blood Urea Nitrogen 14 mg/dL (7-18); Glucose,Random 110 mg/dL (74-106)
[2018-06-08 18:17] LABS: Glomerular Filtration Rate Greater Than 89 mL/min (>89)
[2018-06-08] MEDS: Mag Sulf 1 gm/100 ml Premix 100 ML IV.SIG SCH ×2 (19:22→20:10)
--- NOTE | 2018-06-08 19:32 | XR ---
EXAM DATE: 06/08/2018 6:11 PM EDT AGE/SEX: 22 years / Male INDICATIONS: Shortness of breath status post asthma attack. CLINICAL DATA: This is the patient's initial encounter. Patient reports that signs and symptoms have been present for 1 day and indicates a pain score of 0/10. MEDICAL/SURGICAL HISTORY: Asthma. None. COMPARISON: No prior exams available for comparison. FINDINGS: A single AP view of the chest demonstrates the lungs to be symmetrically aerated without evidence of mass, infiltrate or effusion. The cardiomediastinal contours are unremarkable. Osseous structures a re intact. CONCLUSION: No acute cardiopulmonary process. Electronically signed by: Kaleb Pisano MD 06/08/2018 7:30 PM EDT
[2018-06-08] MEDS ORDERED: Acetaminophen 325 MG Tablet PO PRN (19:33)
[2018-06-08] MEDS ORDERED: Bisacodyl 10 MG Supp RECTAL PRN (19:33)
[2018-06-08] MEDS ORDERED: Temazepam 15 MG Capsule PO PRN (21:00)
--- NOTE | 2018-06-08 21:38 | ECG ---
Date Performed: 06/08/2018 Time Performed: 17:38:16 PTAGE: 22 years EKG: SINUS TACHYCARDIA POSSIBLE LEFT ATRIAL ENLARGEMENT POSSIBLE RIGHT VENTRICULAR CONDUCTION DE LAY ABNORMAL RHYTHM ECG NO PREVIOUS TRACING DOCTOR: Wilson Dos Santos Interpretating Date/Time 06/08/2018 21:37:00
[2018-06-08] MEDS: MethylPREDNISolone Sod Succinate Inj 40 MG/ML Vial IV.PUSH SCH (21:53)
[2018-06-08] MEDS: Senna/Docusate Sodium 8.6/50 MG Tablet PO SCH (21:55)
[2018-06-09] MEDS: MethylPREDNISolone Sod Succinate Inj 40 MG/ML Vial IV.PUSH SCH ×2 (02:52→09:44)
[2018-06-09 07:23] LABS: Baso % (Auto) 0.2 % (0.0-2.0); Eos % (Auto) 0.2 % (0.0-4.0); Hemoglobin 12.2 gm/dL (13.0-17.0); Lymph % (Auto) 14.5 % (9.0-44.0); Mean Corpuscular HGB Conc 33.8 % (32.0-36.0); Mean Corpuscular Hemoglobin 26.3 pg (27.0-34.0); Mean Corpuscular Volume 77.6 fL (80.0-100.0); Mean Platelet Volume 8.4 fL (7.0-11.0); Mono # (Auto) 0.1 th/mm3 (0.0-0.9); Mono % (Auto) 1.1 % (0.0-8.0); Neut # (Auto) 6.1 th/mm3 (1.8-7.7); Platelet Count 225 th/mm3 (150-450); Red Blood Count 4.63 mil/mm3 (4.50-5.90); Red Cell Distribution Width 14.3 % (11.6-17.2); White Blood Count 7.2 th/mm3 (4.0-11.0)
[2018-06-09 07:29] LABS: Chloride 103 meq/L (98-107); Potassium 4.6 meq/L (3.5-5.1); Sodium 138 meq/L (136-145)
[2018-06-09 07:32] LABS: Calcium 8.8 mg/dL (8.5-10.1)
[2018-06-09 07:33] LABS: Anion Gap 6 meq/L (5-15); Blood Urea Nitrogen 16 mg/dL (7-18); Carbon Dioxide 28.9 meq/L (21.0-32.0); Glucose,Random 184 mg/dL (74-106)
[2018-06-09 07:35] LABS: Glomerular Filtration Rate Greater Than 89 mL/min (>89)
[2018-06-09] MEDS: Senna/Docusate Sodium 8.6/50 MG Tablet PO SCH (09:44)
--- NOTE | 2018-06-09 09:58 | P.HP ---
History of Present Illness Primary Care Physician: No Primary Care Physician Chief Complaint: Shortness of breath and cough History of Present Illness: 22-year-old male with known history of asthma who indicates that over the last couple days he has been having worsening shortness of breath, wheeze, cough. Patient was using his nebulizer machine at home however did not improve. He came to emergency department for evaluation. Patient was given Solu-Medrol, nebulizer treatments and was recommended observation the hospital. Upon evaluating patient this morning he is doing quite well. He states that his respiratory status has significantly improved and he is ready to go home. Patient denies any other symptoms to include fever, chills, sputum production, abdominal pain, nausea, vomiting, chest pain. - Diagnosis (1) Acute asthma exacerbation Review of Systems All other systems reviewed negative except as stated in HPI Respiratory: Reports cough, Reports shortness of breath, Reports wheezing PMFSH - History History Provided By: Patient - Medical History Medical History: Medical History (Last Reviewed 06/09/18 @ 09:51 by ROLANDO Albrecht) Abdominal hemorrhage Asthma History of stomach ulcers - Surgical History Surgical History: Surgical History (Last Reviewed 06/09/18 @ 09:51 by ROLANDO Albrecht) Previous back surgery - Family History Family History: Family History (Last Updated 06/09/18 @ 09:51 by ROLANDO Albrecht) Other No pertinent family history - Tobacco History Second Hand Smoke Exposure: Yes ([employer]) Tobacco Use In Past 30 Days: No Smoking Status: Former smoker Tobacco Type: Cigarettes - Alcohol History How Often Do You Have a Drink Containing Alcohol: Never - Substance Use History Substance History: No History of Abuse - Substance Use Type Opiates Status: Sustained Remission Route Used: Intravenously - Travel History Recent Travel in the [place] Within the Last 8 Weeks: No Recent Travel Out of the Country Within the Last 8 Weeks: No - Immunization History Tetanus Immunization: Unsure Hx Influenza Vaccine This Season: Yes Medications and Allergies Active Medications: Active Medications Acetaminophen (Tylenol) 650 mg PO Q4H PRN PRN Reason: Temp > 100.4 Al Hydroxide/Mg Hydroxide (Milk Of Magnjanny Liq) 30 ml PO Q12H PRN PRN Reason: Mild Constipation Albuterol (Duoneb Neb (Prn)) 1 ampul NEB Q15M PRN PRN Reason: SHORTNESS OF BREATH Last Admin: 06/08/18 17:43 Dose: 1 ampul Albuterol (Albuterol Neb (Prn)) 2.5 mg NEB Q2HR NEB PRN PRN Reason: SHORTNESS OF BREATH Last Admin: 06/08/18 22:26 Dose: 2.5 mg Albuterol (Duoneb Neb (Salvador)) 1 ampul NEB Q6HR WHILE AWAKE NEB [facility] Last Admin: 06/09/18 07:36 Dose: 1 ampul Bisacodyl (Dulcolax Supp) 10 mg RECTAL DAILY PRN PRN Reason: SEVERE CONSITIPATION Magnesium Sulfate/Dextrose (Magnesium Sulfate 1 Gm/D5w 100 Ml Premix) 100 mls @ 50 mls/hr IV.SIG ONCE [facility] Stop: 06/09/18 20:59 Last Admin: 06/08/18 20:10 Dose: 200 mls/hr Lactulose (Lactulose Liq) 30 ml PO DAILY PRN PRN Reason: SEVERE CONSITIPATION Methylprednisolone Sodium Succinate (Solumedrol Inj) 60 mg IV.PUSH Q6H [facility] Last Admin: 06/09/18 09:44 Dose: 60 mg Ondansetron HCl (Zofran Inj) 4 mg IV.PUSH Q6H PRN PRN Reason: NAUSEA OR VOMITING Senna/Docusate Sodium (Ara-Colace) 1 tab PO BID [facility] Last Admin: 06/09/18 09:44 Dose: Not Given Sennosides (Senokot) 17.2 mg PO Q12H PRN PRN Reason: Moderate Constipation Sodium Chloride (Ns Flush) 2 ml IV.FLUSH BID [facility] Last Admin: 06/09/18 09:44 Dose: 2 ml Sodium Chloride (Ns Flush) 2 ml IV.FLUSH PRN PRN PRN Reason: FLUSH AFTER USING IV ACCESS Last Admin: 06/09/18 02:53 Dose: 2 ml Temazepam (Restoril) 15 mg PO HS PRN PRN Reason: INSOMNIA Allergies Allergy/AdvReac Type Severity Reaction Status Date / Time No Known Allergies Allergy Verified 06/08/18 19:06 Home Medications Medication Instructions Recorded Confirmed Type albuterol sulfate mg INHALATION QID 06/08/18 History Exam Vital signs: Vital Signs 06/08/18 17:30 06/08/18 17:33 06/08/18 17:40 Temperature 98.5 F Pulse Rate 106 H 106 H 114 H Respiratory Rate 30 H 24 Blood Pressure 163/93 H Pulse Oximetry 80 L 95 06/08/18 17:50 06/08/18 20:18 06/08/18 20:58 Temperature Pulse Rate 103 H 98 H Respiratory Rate 24 15 16 Blood Pressure 149/81 H 140/72 Pulse Oximetry 93 L 94 L 06/08/18 22:00 06/08/18 22:10 06/08/18 22:26 Temperature 96 F L Pulse Rate 89 93 H Respiratory Rate 20 18 Blood Pressure 133/69 Pulse Oximetry 94 L 94 L 93 L 06/09/18 00:07 06/09/18 04:00 06/09/18 07:25 Temperature 96.7 F L 96.7 F L Pulse Rate 99 H 85 60 Respiratory Rate 18 20 20 Blood Pressure 121/60 132/74 Pulse Oximetry 94 L 93 L Intake & Output 06/08/18 06/09/18 06/09/18 18:59 06:59 18:59 Intake Total 340 / 340 Balance 340 / 340 Weight 78 kg 81.9 kg Intake: IV 100 / 100 Magnesium Sulfate 1 gm/D5W 100 100 / 100 ml Premix 100 ML @ 50 mls/hr IV .SIG ONCE [place] Rx#:[id number] Oral 240 / 240 Other: # Voids 2 Weight On Admission 82.9 kg Narrative: GENERAL: Well-developed, well-nourished, in no acute distress. alert and orientated HEENT: Head is normocephalic without any lesions or masses noted. Facial features are symmetric. Eyes: Pupils equal round reactive to light. Extraocular muscles are intact. Conjunctivae were clear. Oropharyngeal: Pharynx without any erythema edema. Tongue is midline without deviation. Buccal mucosa is moist without any masses or lesions NECK: Supple without any masses. Trachea midline no deviation. No JVD, no bruits are appreciated CARDIAC: Regular rhythm, regular rate. S1/S2 are heard. No murmurs gallops or rubs. LUNGS: Mild expiratory wheeze, no rhonchi or rales. No use of accessory muscles on inspiration or expiration. ABDOMEN: Soft, nontender. Nondistended. Bowel sounds heard in all 4 quadrants. No organomegaly or masses. Negative rebound, negative guarding EXTREMITIES: No edema, pulses are equal bilaterally. No cyanosis or clubbing NEUROLOGY: Mood and affect appear appropriate. Cranial nerves II through XII grossly intact. Muscle strength 5/5 in upper and lower extremities bilaterally. Deep tendon reflexes are 2+ in upper and lower extremities bilaterally. Results - Labs CBC & Chem 7: 06/09/18 06:05 06/09/18 06:05 Labs: Laboratory Results - last 24 hr 06/08/18 06/08/18 06/09/18 17:40 17:40 06:05 CBC w Diff Auto diff final Auto diff final WBC 10.1 7.2 RBC 4.95 4.63 Hgb 12.8 L 12.2 L Hct 39.3 36.0 L MCV 79.3 L 77.6 L MCH 25.9 L 26.3 L MCHC 32.6 33.8 RDW 14.2 14.3 Plt Count 249 225 MPV 7.8 8.4 Neut % (Auto) 58.0 84.0 H Lymph % (Auto) 23.5 14.5 [place] % (Auto) 6.3 1.1 Eos % (Auto) 11.2 H 0.2 Baso % (Auto) 1.0 0.2 Neut # (Auto) 5.9 6.1 Lymph # (Auto) 2.4 1.0 [place] # (Auto) 0.6 0.1 Eos # (Auto) 1.1 H 0.0 Baso # (Auto) 0.1 0.0 WBC Differential . . Differential Comment . . Sodium 140 Potassium 4.0 Chloride 105 Carbon Dioxide 29.0 Anion Gap 6 BUN 14 Creatinine 0.97 Estimated GFR Greater than 89 Random Glucose 110 H Calcium 8.9 06/09/18 06:05 CBC w Diff WBC RBC Hgb Hct MCV MCH MCHC RDW Plt Count MPV Neut % (Auto) Lymph % (Auto) [place] % (Auto) Eos % (Auto) Baso % (Auto) Neut # (Auto) Lymph # (Auto) [place] # (Auto) Eos # (Auto) Baso # (Auto) WBC Differential Differential Comment Sodium 138 Potassium 4.6 Chloride 103 Carbon Dioxide 28.9 Anion Gap 6 BUN 16 Creatinine 0.85 Estimated GFR Greater than 89 Random Glucose 184 H Calcium 8.8 - Imaging Impressions Chest X-Ray 06/08/18 17:34 CONCLUSION: Caprini VTE Risk Assessment Caprini VTE Risk Assessment: No/Low Risk (score <= 1) Caprini Risk Assessment Model: Point Value = 1 Point Value = 2 Point Value = 3 Point Value = 5 Age 41-60 Minor surgery BMI > 25 kg/m2 Swollen legs Varicose veins or History of unexplained or recurrent spontaneous Oral contraceptives or hormone replacement Sepsis (< 1 month) Serious lung disease, including pneumonia (< 1 month) Abnormal pulmonary function Acute myocardial infarction Congestive heart failure (< 1 month) History of inflammatory bowel disease Medical patient at bed rest Age 61-74 Arthroscopic surgery Major open surgery (> 45 min) Laparoscopic surgery (> 45 min) Malignancy Confined to bed (> 72 hours) Immobilizing plaster cast Central venous access Age >= 75 History of VTE Family history of VTE Factor V Leiden Prothrombin [id number] Lupus anticoagulant Anticardiolipin antibodies Elevated serum homocysteine Heparin-induced thrombocytopenia Other congenital or acquired thrombophilia Stroke (< 1 month) Elective arthroplasty Hip, pelvis, or leg fracture Acute spinal cord injury (< 1 month) Prophylaxis Regimen: Total Risk Factor Score Risk Level Prophylaxis Regimen 0-1 Low Early ambulation 2 Moderate Order ONE of the following: *Sequential Compression Device (SCD) *Heparin 5000 units SQ BID 3-4 Higher Order ONE of the following medications: *Heparin 5000 units SQ TID *Enoxaparin/Lovenox 40 mg SQ daily (WT < 150 kg, CrCl > 30 mL/min) *Enoxaparin/Lovenox 30 mg SQ daily (WT < 150 kg, CrCl > 10-29 mL/min) *Enoxaparin/Lovenox 30 mg SQ BID (WT < 150 kg, CrCl > 30 mL/min) AND/OR *Sequential Compression Device (SCD) 5 or more Highest Order ONE of the following medications: *Heparin 5000 units SQ TID (Preferred with Epidurals) *Enoxaparin/Lovenox 40 mg SQ daily (WT < 150 kg, CrCl > 30 mL/min) *Enoxaparin/Lovenox 30 mg SQ daily (WT < 150 kg, CrCl > 10-29 mL/min) *Enoxaparin/Lovenox 30 mg SQ BID (WT < 150 kg, CrCl > 30 mL/min) AND *Sequential Compression Device (SCD) Assessment and Plan - Assessment (1) Acute asthma exacerbation Code(s): J45.901 - Unspecified asthma with (acute) exacerbation Status: Acute - Plan Acute asthma exacerbation, improved -Patient was started on steroid, nebulizer treatments in the emergency department with significant improvement -Patient is resting comfortably on room air. Mild wheeze noted. Patient states that his breathing is significantly improved. Patient wants to go home. -Patient is on nebulizer treatment at home, however he could benefit from a rescue inhaler -Patient instructed if he needs a follow-up with his primary medical doctor, he needs to avoid any triggers for his asthma. DVT prevention -Low risk, early ambulation Discharge Planning: Discharge home in stable condition Activity: Ad russ. Diet: Regular diet Medication per medication reconciliation Follow-up with primary medical doctor in 1 week (1) Acute asthma exacerbation Qualifiers: Asthma severity: unspecified severity Asthma persistence: unspecified Qualified Code(s): J45.901 - Unspecified asthma with (acute) exacerbation
== END 2018-06-09 10:43 | disposition home or self-care (01) ==
LOC: PH3 17:30 → PHEDA 17:30 → PHED 17:30 → PH3 21:42
PROVIDERS: ADMIT Hospitalist; ATTEND Hospitalist
DX: J45.901 Unspecified asthma with (acute) exacerbation; Z87.11 Personal history of peptic ulcer disease